=== PATIENT | male | born 1980 | race Caucasian/White ===

== ENCOUNTER 2019-10-12 20:13 | Observation (INO) | payer SELFPAY ==
[~2019-10-12] VITALS: Ht 193 cm; Wt 113.2 kg
[2019-10-12] MEDS ORDERED: NS IV 1000 ML 1,000 ML IV SCH ×2 (20:42→21:39)
[2019-10-12 20:57] LABS: BASOPHILS # (AUTO) 0.1 10^3/uL (0.0-0.1); BASOPHILS % (AUTO) 1 % (0-10); EOSINOPHILS # (AUTO) 0.3 10^3/uL (0.0-0.3); EOSINOPHILS % (AUTO) 3 % (0-10); HEMATOCRIT 43 % (40-54); HEMOGLOBIN 15.6 G/DL (13.3-17.7); LYMPHOCYTES # (AUTO) 2.2 X 10^3 (1.0-4.0); LYMPHOCYTES % (AUTO) 26 % (12-44); MEAN CORPUSCULAR HEMOGLOBIN 31 PG (25-34); MEAN CORPUSCULAR HGB CONC 36 G/DL (32-36); MEAN CORPUSCULAR VOLUME 86 FL (80-99); MONOCYTES # (AUTO) 0.5 X 10^3 (0.0-1.0); MONOCYTES % (AUTO) 6 % (0-12); NEUTROPHILS # (AUTO) 5.3 X 10^3 (1.8-7.8); NEUTROPHILS % (AUTO) 64 % (42-75); PLATELET COUNT 190 10^3/uL (130-400); WHITE BLOOD COUNT 8.3 10^3/uL (4.3-11.0)
--- NOTE | 2019-10-12 20:57 | NUR ---
RT TO BEDSIDE FOR ABG
--- NOTE | 2019-10-12 21:01 | ED General ---
General Chief Complaint: Glucose Problems Stated Complaint: HIGH BLOOD SUGAR, DIZZINESS Source of Information: Patient History of Present Illness Date Seen by Provider: Oct 12, 2019 Time Seen by Provider: 20:38 Initial Comments PT ARRIVES VIA POV C/O ELEVATED BLOOD SUGAR--> 500 JUST PRIOR TO ARRIVAL PT STATES HE IS "NOT DIABETIC" PT STATES IN APRIL OF THIS YEAR, HE WAS HOSPITALIZED IN [place], AND HAD PANCREATITIS AND HAD ELEVATED BLOOD SUGAR AND ELEVATED BLOOD PRESSURE. PT STATES THAT "EVERYTHING WENT BACK TO NORMAL" ,BUT DID NOT FOLLOW UP WITH ANYONE AFTER THE HOSPITALIZATION, EXCEPT THAT HE WENT TO AN URGENT CARE SOMETIME AFTER HE WAS DISMISSED FROM THE HOSPITAL AND HIS BLOOD SUGARS WERE IN THE 400'S AND THEY GAVE HIM SOME FLUIDS AND SENT HIM HOME PT STATES HE HAS NOT CHECKED HIS BLOOD SUGAR FOR ABOUT 3 MONTHS STATES HE ATE AT [facility] THIS EVENING, ABOUT 2 HOURS AGO STATES JUST PRIOR TO ARRIVAL, HE STARTED GETTING SOME BLURRY VISION AND FELT A LITTLE DIZZY, SO HE CHECKED HIS BLOOD SUGAR AND IT WAS > 500, SO HE CAME STRAIGHT HERE NO NAUSEA/VOMITING/DIARRHEA OR ABDOMINAL PAIN NO FEVER/SWEATS/CHILLS HAD SLIGHT HEADACHE ON THE WAY HERE, BUT NOT NOW STATES HAS HAD URINARY FREQUENCY THE LAST 2-3 DAYS. PT HAD SOME ALCOHOL YESTERDAY AND "1 BEER" TODAY WANTING SOMETHING FOR HIS ANXIETY SOON HE ARRIVES IN ER PT JUST MOVED HERE LESS THAN A WEEK AGO FROM [place] Allergies and Home Medications Allergies Coded Allergies: No Known Drug Allergies (Unverified , 10/12/19) Patient Home Medication List Home Medication List Reviewed: Yes Review of Systems Review of Systems Constitutional: see HPI; No chills, No diaphoresis; dizziness; No fever, No malaise, No weakness EENTM: see HPI, blurred vision Respiratory: no symptoms reported Cardiovascular: no symptoms reported Gastrointestinal: no symptoms reported; No abdominal pain, No diarrhea, No loss of appetite, No nausea, No vomiting Genitourinary: see HPI; No dysuria; frequency Musculoskeletal: no symptoms reported Skin: no symptoms reported Psychiatric/Neurological: See HPI; Denies Numbness, Denies Paresthesia Hematologic/Lymphatic: No Symptoms Reported Immunological/Allergic: no symptoms reported Past Ofktuvn-Icckqs-Aqzsqx Hx Past Med/Social Hx: Reviewed and Corrections made Patient Social History Alcohol Use: Occasionally Uses Recreational Drug Use: No Smoking Status: Current Everyday Smoker Type Used: Cigarettes Past Medical History Surgeries: No Respiratory: No Cardiac: Yes (NO MEDICATIONS) Hypertension Neurological: No Genitourinary: No Gastrointestinal: Yes Pancreatitis Musculoskeletal: No Endocrine: Yes (ELEVATED BLOOD SUGAR) HEENT: No Cancer: No Psychosocial: Yes Anxiety Family Medical History SOCIAL HISTORY: -STATES "OCCASIONAL" ETOH, NOW, BUT HISTORY OF VERY HEAVY USE -DENIES DRUG USE -SMOKES 1-3 PACKS/DAY Physical Exam Vital Signs Vital Signs - First Documented 10/12/19 20:33 Temp 36.8 Pulse 121 Resp 20 B/P (MAP) 171/109 (129) Pulse Ox 98 O2 Delivery Room Air Capillary Refill : Height, Weight, BMI Height: '" Weight: lbs. oz. kg; BMI Method: General Appearance: No Apparent Distress, WD/WN, Anxious (TALKS VERY RAPIDLY), Other (DOES NOT APPEAR TO BE IN ANY DISCOMFORT OR DISTRESS) HEENT: PERRL/EOMI Neck: Normal Inspection Respiratory: Normal Breath Sounds, No Accessory Muscle Use, No Respiratory Distress Cardiovascular: No Edema, No JVD, Normal Peripheral Pulses, Tachycardia (120'S) Gastrointestinal: Normal Bowel Sounds, No Organomegaly, No Pulsatile Mass, Non Tender, Soft Back: Normal Inspection, No CVA Tenderness Extremity: Normal Capillary Refill, Normal Inspection, Normal Range of Motion, Non Tender, No Calf Tenderness, No Pedal Edema Neurologic/Psychiatric: Alert, Oriented x3, No Motor/Sensory Deficits, invasive physician II- XII Norm as Tested Skin: Normal Color, Warm/Dry, Tattoos/Piercings (MULTIPLE TATTOOS) Progress/Results/Core Measures Suspected Sepsis SIRS Temperature: Pulse: Respiratory Rate: Laboratory Tests 10/12/19 20:38: White Blood Count 8.3 Blood Pressure / Mean: Laboratory Tests 10/12/19 20:38: Creatinine 1.59H, Platelet Count 190, Total Bilirubin 0.5 Results/Orders Lab Results Laboratory Tests Test 10/12/19 20:38 10/12/19 21:27 10/12/19 21:51 Range/Units White Blood Count 8.3 4.3-11.0 10^3/uL Red Blood Count 5.04 4.35-5.85 10^6/uL Hemoglobin 15.6 13.3-17.7 G/DL Hematocrit 43 40-54 % Mean Corpuscular Volume 86 80-99 FL Mean Corpuscular Hemoglobin 31 25-34 PG Mean Corpuscular Hemoglobin Concent 36 32-36 G/DL Red Cell Distribution Width 12.7 10.0-14.5 % Platelet Count 190 130-400 10^3/uL Mean Platelet Volume 12.0 H 7.4-10.4 FL Neutrophils (%) (Auto) 64 42-75 % Lymphocytes (%) (Auto) 26 12-44 % Monocytes (%) (Auto) 6 0-12 % Eosinophils (%) (Auto) 3 0-10 % Basophils (%) (Auto) 1 0-10 % Neutrophils # (Auto) 5.3 1.8-7.8 X 10^3 Lymphocytes # (Auto) 2.2 1.0-4.0 X 10^3 Monocytes # (Auto) 0.5 0.0-1.0 X 10^3 Eosinophils # (Auto) 0.3 0.0-0.3 10^3/uL Basophils # (Auto) 0.1 0.0-0.1 10^3/uL Sodium Level 130 L 135-145 MMOL/L Potassium Level 3.9 3.6-5.0 MMOL/L Chloride Level 93 L 98-107 MMOL/L Carbon Dioxide Level 22 21-32 MMOL/L Anion Gap 15 H 5-14 MMOL/L Blood Urea Nitrogen 11 7-18 MG/DL Creatinine 1.59 H 0.60-1.30 MG/DL Estimat Glomerular Filtration Rate 49 BUN/Creatinine Ratio 7 Glucose Level 565 *H 70-105 MG/DL Calcium Level 9.9 8.5-10.1 MG/DL Corrected Calcium 8.5-10.1 MG/DL Magnesium Level 1.7 1.6-2.4 MG/DL Total Bilirubin 0.5 0.1-1.0 MG/DL Aspartate Amino Transf (AST/SGOT) 15 5-34 U/L Alanine Aminotransferase (ALT/SGPT) 36 0-55 U/L Alkaline Phosphatase 92 40-136 U/L Total Protein 8.2 6.4-8.2 GM/DL Albumin 4.8 H 3.2-4.5 GM/DL Amylase Level 16 L 25-125 U/L Lipase 32 8-78 U/L Beta-Hydroxybutyrate (Chem panel) 0.07 0.00-0.27 MMOL/L Serum Alcohol < 10 <10 MG/DL Urine Color YELLOW Urine Clarity CLEAR Urine pH 6.0 5-9 Urine Specific [place] <=1.005 1.016-1.022 Urine Protein NEGATIVE NEGATIVE Urine Glucose (UA) 3+ H NEGATIVE Urine Ketones NEGATIVE NEGATIVE Urine Nitrite NEGATIVE NEGATIVE Urine Bilirubin NEGATIVE NEGATIVE Urine Urobilinogen 0.2 < = 1.0 MG/DL Urine Leukocyte Esterase NEGATIVE NEGATIVE Urine RBC (Auto) NEGATIVE NEGATIVE Urine RBC NONE /HPF Urine WBC NONE /HPF Urine Squamous Epithelial Cells 2-5 /HPF Urine Crystals NONE /LPF Urine Bacteria NEGATIVE /HPF Urine Casts NONE /LPF Urine Mucus NEGATIVE /LPF Urine Culture Indicated NO Urine Opiates Screen NEGATIVE NEGATIVE Urine Oxycodone Screen NEGATIVE NEGATIVE Urine Methadone Screen NEGATIVE NEGATIVE Urine Propoxyphene Screen NEGATIVE NEGATIVE Urine Barbiturates Screen NEGATIVE NEGATIVE Ur Tricyclic Antidepressants Screen NEGATIVE NEGATIVE Urine Phencyclidine Screen NEGATIVE NEGATIVE Urine Amphetamines Screen NEGATIVE NEGATIVE Urine Methamphetamines Screen NEGATIVE NEGATIVE Urine Benzodiazepines Screen NEGATIVE NEGATIVE Urine Cocaine Screen NEGATIVE NEGATIVE Urine Cannabinoids Screen NEGATIVE NEGATIVE Blood Gas Puncture Site RIGHT RADIAL Blood Gas Patient Temperature 37.1 Arterial Blood pH 7.38 7.37-7.43 Arterial Blood Partial Pressure CO2 46 H 35-45 MMHG Arterial Blood Partial Pressure O2 35 *L 79-93 MMHG Arterial Blood HCO3 27 23-27 MMOL/L Arterial Blood Total CO2 28.2 21.0-31.0 MMOL/L Arterial Blood Oxygen Saturation 66 L 94-100 % Arterial Blood Base Excess 2.1 -2.5-2.5 MMOL/L Wayne Test YES-POS Blood Gas Ventilator Setting NO Blood Gas Inspired Oxygen ROOM AIR My Orders Orders - KENYA DAO DO Accucheck Stat ONCE (10/12/19 20:37) Ed Iv/Invasive Line Start (10/12/19 20:37) Alcohol (10/12/19 20:37) Amylase (10/12/19 20:37) Cbc With Automated Diff (10/12/19 20:37) Comprehensive Metabolic Panel (10/12/19 20:37) Drug Screen Stat (Urine) (10/12/19 20:37) Lipase (10/12/19 20:37) Magnesium (10/12/19 20:37) Ua Culture If Indicated (10/12/19 20:37) Ed Iv/Invasive Line Start (10/12/19 20:37) Beta Hydroxybutyrate (10/12/19 20:42) Arterial Blood Gas (10/12/19 20:42) Ed Iv/Invasive Line Start (10/12/19 20:42) Ns Iv 1000 Ml (Sodium Chloride 0.9%) (10/12/19 20:42) Hemoglobin A1c (10/12/19 21:04) Ed Iv/Invasive Line Start (10/12/19 21:39) Ns Iv 1000 Ml (Sodium Chloride 0.9%) (10/12/19 21:39) Insulin (Regular) Human (Novolin R (Per (10/12/19 21:45) Accucheck Stat ONCE (10/12/19 22:35) Hydroxyzine Cap/Tab (Vistaril) (10/12/19 23:00) Medications Given in ED Current Medications Medications Dose Ordered Sig/Shelby Route Start Time Stop Time Status Last Admin Dose Admin Insulin Human Regular 15 unit ONCE ONCE IV 10/12/19 21:45 10/12/19 21:46 DC 10/12/19 21:49 15 UNIT Vital Signs/I&O 10/12/19 10/12/19 20:33 23:18 Temp 36.8 Pulse 121 100 Resp 20 20 B/P (MAP) 171/109 (129) 138/90 Pulse Ox 98 98 O2 Delivery Room Air Room Air Capillary Refill : Point of Care Testing Finger Stick Blood Glucose: 529 Blood Glucose Action Taken: DR DAO AWARE Progress Note : Progress Note ACCUCHECK 529 ON ARRIVAL. GIVEN IV FLUIDS AND INSULIN NO DETERIORATION IN PT'S CONDITION DURING ER STAY Departure Communication (Admissions) [id number]--SPOKE WITH DR. RAI, ACCEPTS PT FOR ADMIT. ORDERS NOTED. Impression Primary Impression: Hyperglycemia Additional Impressions: Newly diagnosed diabetes HTN (hypertension) Dehydration Renal insufficiency Disposition: ADMITTED INPATIENT Condition: Stable Admissions Decision to Admit Reason: Admit from ER (General) Decision to Admit/Date: Oct 12, 2019 Time/Decision to Admit Time: 21:45 Departure-Patient Inst. Referrals: NO,LOCAL PHYSICIAN (PCP/Family) Primary Care Physician KENYA DAO DO Oct 12, 2019 21:01
[2019-10-12 21:16] LABS: ALANINE AMINOTRANSFERASE 36 U/L (0-55); ALBUMIN 4.8 GM/DL (3.2-4.5); ALKALINE PHOSPHATASE 92 U/L (40-136); AMYLASE 16 U/L (25-125); BILIRUBIN,TOTAL 0.5 MG/DL (0.1-1.0); BUN/CREATININE RATIO 7; CALCIUM 9.9 MG/DL (8.5-10.1); CARBON DIOXIDE 22 MMOL/L (21-32); CHLORIDE 93 MMOL/L (98-107); CREATININE SERUM 1.59 MG/DL (0.60-1.30); GFR ESTIMATED 49; LIPASE 32 U/L (8-78); MAGNESIUM 1.7 MG/DL (1.6-2.4); POTASSIUM 3.9 MMOL/L (3.6-5.0); SODIUM 130 MMOL/L (135-145); TOTAL PROTEIN 8.2 GM/DL (6.4-8.2)
[2019-10-12 21:21] LABS: GLUCOSE 565 MG/DL (70-105)
[2019-10-12] MEDS ORDERED: inSUlin (REGULAR) HUMAN 1 UNIT/0.01 ML (CHARGE PER UNIT) IV ONE (21:45)
[2019-10-12 21:48] LABS: AMPHETAMINE SCREEN, URINE NEGATIVE (NEGATIVE); BARBITURATE SCREEN URINE NEGATIVE (NEGATIVE); BENZODIAZEPINES SCREEN URINE NEGATIVE (NEGATIVE); CANNABINOID SCREEN, URINE NEGATIVE (NEGATIVE); COCAINE SCREEN URINE NEGATIVE (NEGATIVE); METHADONE STAT NEGATIVE (NEGATIVE); METHAMPHETAMINE SCREEN URINE S NEGATIVE (NEGATIVE); OPIATE SCREEN URINE NEGATIVE (NEGATIVE); OXYCODONE STAT NEGATIVE (NEGATIVE); PROPOXYPHENE STAT NEGATIVE (NEGATIVE); TRICYCLIC ANTIDEPRESSANTS SCRE NEGATIVE (NEGATIVE)
--- NOTE | 2019-10-12 21:52 | NUR ---
ABG REDRAWN BY RT AT THIS TIME.
[2019-10-12 21:53] LABS: BILIRUBIN,URINE NEGATIVE (NEGATIVE); CLARITY,URINE CLEAR; COLOR,URINE YELLOW; GLUCOSE, URINE (UA) 3+ (NEGATIVE); KETONES,URINE NEGATIVE (NEGATIVE); LEUKOCYTE ESTERASE ,URINE NEGATIVE (NEGATIVE); NITRITE,URINE NEGATIVE (NEGATIVE); PROTEIN,URINE NEGATIVE (NEGATIVE)
[2019-10-12 21:55] LABS: BACTERIA,URINE NEGATIVE /HPF
[2019-10-12 22:00] LABS: ABG BASE EXCESS 2.1 MMOL/L (-2.5-2.5); ABG OXYGEN SATURATION 66 % (94-100); ABG PCO2 46 MMHG (35-45); ABG PH 7.38 (7.37-7.43); ABG TCO2 28.2 MMOL/L (21.0-31.0)
[2019-10-12 22:04] LABS: ABG PO2 35 MMHG (79-93)
[2019-10-12 22:05] LABS: ALLENS TEST YES-POS; INSPIRED O2 ROOM AIR; PATIENT TEMP 37.1; VENTILATOR NO
[2019-10-12] MEDS ORDERED: hydrOXYzine (VISTARIL/ATARAX) 25 MG capsule/tablet PO ONE (23:00)
--- NOTE | 2019-10-12 23:00 | NUR ---
KENDRA EASLEY admitted to room 423-1, with an admitting diagnosis of hyperglycemia, on 10/12/19 from [facility] ED via wheelchair, accompanied by staff.KENDRA EASLEY introduced to surroundings, call light, bed controls, phone, TV, temperature control, lights, meal times, smoking policy, visitor policy, side rail policy, bathrooms and showers. Patient Rights given to patient in the handbook. KENDRA EASLEY verbalizes understanding that [facility] is not responsible for the loss or damage to any personal effects or valuables that are kept in the patients posession during their hospitalization.
--- NOTE | 2019-10-12 23:18 | NUR ---
PT TRANSFERED FROM ED TO 4TH PER W/C W/O INCIDENT. NO C/O VOICED.
[2019-10-12 23:45] VITALS: BP 154/97
[2019-10-13] VITALS: BP 154/97
[2019-10-13] MEDS ORDERED: ONDANSETRON 4 MG/2 ML (SDV) Z0FRAN IV PRN (00:15)
[2019-10-13] MEDS ORDERED: ACETAMINOPHEN 500 MG TAB (TYLENOL) PO PRN (00:15)
[2019-10-13] MEDS: NS IV 1000 ML 1,000 ML IV SCH ×2 (00:24→06:20)
[2019-10-13 04:00] VITALS: BP 134/69
[2019-10-13] MEDS: inSUlin ASPART (NovoLOG) 1 UNIT/0.01 ML (CHARGE PER UNIT) SC SCH ×2 (06:19→12:01)
[2019-10-13 07:22] LABS: BASOPHILS % (AUTO) 0 % (0-10); EOSINOPHILS # (AUTO) 0.3 10^3/uL (0.0-0.3); EOSINOPHILS % (AUTO) 4 % (0-10); HEMATOCRIT 39 % (40-54); HEMOGLOBIN 13.8 G/DL (13.3-17.7); LYMPHOCYTES # (AUTO) 1.7 X 10^3 (1.0-4.0); LYMPHOCYTES % (AUTO) 25 % (12-44); MEAN CORPUSCULAR HEMOGLOBIN 31 PG (25-34); MEAN CORPUSCULAR HGB CONC 35 G/DL (32-36); MEAN CORPUSCULAR VOLUME 87 FL (80-99); MEAN PLATELET VOLUME 11.9 FL (7.4-10.4); MONOCYTES # (AUTO) 0.4 X 10^3 (0.0-1.0); MONOCYTES % (AUTO) 6 % (0-12); NEUTROPHILS # (AUTO) 4.4 X 10^3 (1.8-7.8); NEUTROPHILS % (AUTO) 65 % (42-75); PLATELET COUNT 175 10^3/uL (130-400); WHITE BLOOD COUNT 6.8 10^3/uL (4.3-11.0)
[2019-10-13 07:42] LABS: ALANINE AMINOTRANSFERASE 31 U/L (0-55); ALBUMIN 3.8 GM/DL (3.2-4.5); ALKALINE PHOSPHATASE 72 U/L (40-136); BILIRUBIN,TOTAL 0.5 MG/DL (0.1-1.0); BUN/CREATININE RATIO 9; CALCIUM 8.6 MG/DL (8.5-10.1); CARBON DIOXIDE 22 MMOL/L (21-32); CHLORIDE 102 MMOL/L (98-107); CREATININE SERUM 1.13 MG/DL (0.60-1.30); GFR ESTIMATED > 60; GLUCOSE 311 MG/DL (70-105); POTASSIUM 4.2 MMOL/L (3.6-5.0); SODIUM 135 MMOL/L (135-145); TOTAL PROTEIN 6.4 GM/DL (6.4-8.2)
[2019-10-13 08:00] VITALS: BP 84/54
[2019-10-13] MEDS ORDERED: metFORMIN 500 MG (GLUCOPHAGE) TAB PO ONE (09:00)
[2019-10-13] MEDS ORDERED: METF-397 PO (11:20)
--- NOTE | 2019-10-13 12:00 | NUR ---
THIS NURSE ATTEMPTED TO EDUCATION PATIENT ON INSULIN INJECTIONS AND DIABETES, PATIENT STATES HE WILL NOT BE DOING INJECTIONS AT HOME, DR RAI NOTIFIED. INFORMATION ON TYPE 2 DIABETES, DIET CONTROL AND HYPERGLYCEMIA GIVEN TO PATIENT, PATIENT NOT VERY INTERESTED IN LEARNING.
[2019-10-13 13:23] VITALS: BP 84/54
--- NOTE | 2019-10-13 18:18 | Discharge Summary ---
Discharge Summary Hospital Course Was the Problem List Reviewed?: Yes Problems/Dx: (1) T2DM (type 2 diabetes mellitus) Status: Acute Qualifiers: Qualified Codes: E11.65 - Type 2 diabetes mellitus with hyperglycemia (2) RUBEN (acute kidney injury) Status: Acute (3) Obesity Status: Chronic Qualifiers: Qualified Codes: E66.09 - Other obesity due to excess calories; Z68.30 - Body mass index (bmi) 30.0-30.9, adult Hospital Course Date of Admission: Oct 12, 2019 at 21:45 Admission Diagnosis : T2DM with hyperglycemia Family Physician/Provider: Jie,Local Physician Date of Discharge: 10/13/19 Discharge Diagnosis: T2DM with hyperglycemia Hospital Course: Ernst De Santiago is a 39 year old male who presented with hyperglycemia and was admitted with T2DM with hyperglycemia. He had previously been diagnosed with diabetes in [place]. He says that he did not take medications at that time and he was able to control his blood sugars with diet and exercise. He was very resistant to starting medications. He did agree to start Metformin. We discussed that his diabetes may be severe enough that he could require insulin therapy. He recently moved to [place]. He is unemployed. He does not have insurance. He does not have a doctor. He was scheduled for an appointment at [facility]. He was given a prescription for Metformin. His Hemoglobin A1C was pending at the time of discharge. His course was complicated by RUBEN which resolved with IV fluids. He was discharged home in stable condition. Labs and Pending Lab Test: Laboratory Tests 10/12/19 20:38: White Blood Count 8.3, Red Blood Count 5.04, Hemoglobin 15.6, Hematocrit 43, Mean Corpuscular Volume 86, Mean Corpuscular Hemoglobin 31, Mean Corpuscular Hemoglobin Concent 36, Red Cell Distribution Width 12.7, Platelet Count 190, Mean Platelet Volume 12.0H, Neutrophils (%) (Auto) 64, Lymphocytes (%) (Auto) 26, Monocytes (%) (Auto) 6, Eosinophils (%) (Auto) 3, Basophils (%) (Auto) 1, Neutrophils # (Auto) 5.3, Lymphocytes # (Auto) 2.2, Monocytes # (Auto) 0.5, Eosinophils # (Auto) 0.3, Basophils # (Auto) 0.1, Sodium Level 130L, Potassium Level 3.9, Chloride Level 93L, Carbon Dioxide Level 22, Anion Gap 15H, Blood Urea Nitrogen 11, Creatinine 1.59H, Estimat Glomerular Filtration Rate 49, BUN/Creatinine Ratio 7, Glucose Level 565*H, Mean Blood Glucose [Pending], Hemoglobin A1c [Pending], Calcium Level 9.9, Corrected Calcium , Magnesium Level 1.7, Total Bilirubin 0.5, Aspartate Amino Transf (AST/SGOT) 15, Alanine Aminotransferase (ALT/SGPT) 36, Alkaline Phosphatase 92, Total Protein 8.2, Albumin 4.8H, Amylase Level 16L, Lipase 32, Beta-Hydroxybutyrate (Chem panel) 0.07, Serum Alcohol < 10 10/12/19 21:27: Urine Color YELLOW, Urine Clarity CLEAR, Urine pH 6.0, Urine Specific [place] <=1.005, Urine Protein NEGATIVE, Urine Glucose (UA) 3+H, Urine Ketones NEGATIVE, Urine Nitrite NEGATIVE, Urine Bilirubin NEGATIVE, Urine Urobilinogen 0.2, Urine Leukocyte Esterase NEGATIVE, Urine RBC (Auto) NEGATIVE, Urine RBC NONE, Urine WBC NONE, Urine Squamous Epithelial Cells 2-5, Urine Crystals NONE, Urine Bacteria NEGATIVE, Urine Casts NONE, Urine Mucus NEGATIVE, Urine Culture Indicated NO, Urine Opiates Screen NEGATIVE, Urine Oxycodone Screen NEGATIVE, Urine Methadone Screen NEGATIVE, Urine Propoxyphene Screen NEGATIVE, Urine Barbiturates Screen NEGATIVE, Ur Tricyclic Antidepressants Screen NEGATIVE, Urine Phencyclidine Screen NEGATIVE, Urine Amphetamines Screen NEGATIVE, Urine Methamphetamines Screen NEGATIVE, Urine Benzodiazepines Screen NEGATIVE, Urine Cocaine Screen NEGATIVE, Urine Cannabinoids Screen NEGATIVE 10/12/19 21:51: Blood Gas Puncture Site RIGHT RADIAL, Blood Gas Patient Temperature 37.1, Arterial Blood pH 7.38, Arterial Blood Partial Pressure CO2 46H, Arterial Blood Partial Pressure O2 35*L, Arterial Blood HCO3 27, Arterial Blood Total CO2 28.2, Arterial Blood Oxygen Saturation 66L, Arterial Blood Base Excess 2.1, Wayne Test YES-POS, Blood Gas Ventilator Setting NO, Blood Gas Inspired Oxygen ROOM AIR 10/13/19 07:02: White Blood Count 6.8, Red Blood Count 4.48, Hemoglobin 13.8, Hematocrit 39L, Mean Corpuscular Volume 87, Mean Corpuscular Hemoglobin 31, Mean Corpuscular Hemoglobin Concent 35, Red Cell Distribution Width 12.9, Platelet Count 175, Mean Platelet Volume 11.9H, Neutrophils (%) (Auto) 65, Lymphocytes (%) (Auto) 25, Monocytes (%) (Auto) 6, Eosinophils (%) (Auto) 4, Basophils (%) (Auto) 0, Neutrophils # (Auto) 4.4, Lymphocytes # (Auto) 1.7, Monocytes # (Auto) 0.4, Eosinophils # (Auto) 0.3, Basophils # (Auto) 0.0, Sodium Level 135, Potassium Level 4.2, Chloride Level 102, Carbon Dioxide Level 22, Anion Gap 11, Blood Urea Nitrogen 10, Creatinine 1.13, Estimat Glomerular Filtration Rate > 60, BUN/Creatinine Ratio 9, Glucose Level 311H, Calcium Level 8.6, Corrected Calcium 8.8, Total Bilirubin 0.5, Aspartate Amino Transf (AST/SGOT) 23, Alanine Aminotransferase (ALT/SGPT) 31, Alkaline Phosphatase 72, Total Protein 6.4, Alb umin 3.8 Home Meds Active Metformin HCl 500 Mg Tablet 500 Mg PO BID 30 Days TAKE 500 MG TWICE DAILY FOR ONE WEEK, THEN INCREASE TO 1000 MG TWICE DAILY. Assessment/Pt Instructions Take medications as prescribed. Begin taking Metformin for diabetes. Establish care with a primary care physician. An appointment was scheduled at [facility]. Discharge Planning: <30 minutes discharge planning Discharge Instructions Discharge Diet: ADA Diet Activity as Tolerated: Yes Discharge Physical Examination Vital Signs Vital Signs Date Time Temp Pulse Resp B/P (MAP) Pulse Ox O2 Delivery O2 Flow Rate FiO2 10/13/19 13:23 36.0 63 18 84/54 95 Room Air Allergies: Coded Allergies: No Known Drug Allergies (Unverified , 10/12/19) Copy Copies To 1: [facility] [place] Summary Date of Admission Oct 12, 2019 at 21:45 Date of Discharge Oct 13, 2019 at 13:29 Discharge Date: Oct 13, 2019 Discharge Time: 13:29 Admission Diagnosis T2DM with hyperglycemia Discharge Diagnosis (1) T2DM (type 2 diabetes mellitus) Status: Acute Qualifiers: Qualified Codes: E11.65 - Type 2 diabetes mellitus with hyperglycemia (2) RUBEN (acute kidney injury) Status: Acute (3) Obesity Status: Chronic Qualifiers: Qualified Codes: E66.09 - Other obesity due to excess calories; Z68.30 - Body mass index (bmi) 30.0-30.9, adult Clinical Quality Measures DVT/VTE Risk/Contraindication: Risk Factor Score Per Nursin RFS Level Per Nursing on Admit: 4+=Very High PRIYA RAI MD Oct 13, 2019 18:18
== END 2019-10-13 11:17 | disposition home or self-care (01) ==
LOC: ER 20:16 → UNDOADMOB 21:45 → 4TH 21:45 → UNDODISOB 10-13 13:29
PROVIDERS: ADMIT Internal Medicine; ATTEND Internal Medicine
DX: E11.65 Type 2 diabetes mellitus with hyperglycemia (principal); N17.9 Acute kidney failure, unspecified; I10 Essential (primary) hypertension; F41.9 Anxiety disorder, unspecified; F17.210 Nicotine dependence, cigarettes, uncomplicated; E66.09 Other obesity due to excess calories; Z68.30 Body mass index [BMI] 30.0-30.9, adult; Z79.84 Long term (current) use of oral hypoglycemic drugs; Z79.899 Other long term (current) drug therapy
CPT/HCPCS: 36600; 80053 ×2; 80306; 81000; 82010; 82150; 82805; 82962 ×2; 83036; 83690; 83735; 85025 ×2; 96361; 96374; 99284; G0378; G0480; 36415; 80320

== ENCOUNTER 2020-01-15 12:46 | Emergency (ER) | payer SELFPAY ==
[~2020-01-15] VITALS: Ht 186 cm; Wt 193.0 kg
[~2020-01-15 12:46] MED LIST: METF-397 PO
[2020-01-15] MEDS ORDERED: NS IV 1000 ML 1,000 ML IV SCH (13:00)
[2020-01-15] MEDS ORDERED: inSUlin (REGULAR) HUMAN 1 UNIT/0.01 ML (CHARGE PER UNIT) ONE (13:13)
[2020-01-15 13:14] LABS: BILIRUBIN,URINE NEGATIVE (NEGATIVE); CLARITY,URINE CLEAR; COLOR,URINE YELLOW; GLUCOSE, URINE (UA) 3+ (NEGATIVE); KETONES,URINE NEGATIVE (NEGATIVE); LEUKOCYTE ESTERASE ,URINE NEGATIVE (NEGATIVE); NITRITE,URINE NEGATIVE (NEGATIVE); PROTEIN,URINE NEGATIVE (NEGATIVE)
[2020-01-15] MEDS ORDERED: inSUlin (REGULAR) HUMAN 1 UNIT/0.01 ML (CHARGE PER UNIT) SC SCH (13:15)
[2020-01-15 13:22] LABS: BACTERIA,URINE NEGATIVE /HPF; SQUAMOUS EPITHELIAL CELL,UR RARE /HPF
[2020-01-15 13:28] LABS: BASOPHILS # (AUTO) 0.1 10^3/uL (0.0-0.1); BASOPHILS % (AUTO) 1 % (0-10); EOSINOPHILS # (AUTO) 0.2 10^3/uL (0.0-0.3); EOSINOPHILS % (AUTO) 3 % (0-10); HEMATOCRIT 46 % (40-54); LYMPHOCYTES # (AUTO) 1.3 10^3/uL (1.0-4.0); LYMPHOCYTES % (AUTO) 20 % (12-44); MEAN CORPUSCULAR HEMOGLOBIN 32 pg (25-34); MEAN CORPUSCULAR HGB CONC 35 g/dL (32-36); MEAN CORPUSCULAR VOLUME 90 fL (80-99); MEAN PLATELET VOLUME 11.4 fL (9.0-12.2); MONOCYTES # (AUTO) 0.4 10^3/uL (0.0-1.0); MONOCYTES % (AUTO) 6 % (0-12); NEUTROPHILS # (AUTO) 4.7 10^3/uL (1.8-7.8); NEUTROPHILS % (AUTO) 69 % (42-75); PLATELET COUNT 183 10^3/uL (130-400); WHITE BLOOD COUNT 6.8 10^3/uL (4.3-11.0)
--- NOTE | 2020-01-15 13:31 | ED General ---
General Chief Complaint: Glucose Problems Stated Complaint: HIGH BLOOD SUGAR Nursing Triage Note: PT STATES HAVING ISSUES WITH BLOOD SUGAR GOING UP AND DOWN SINCE YESTERDAY. HIGHEST BEING 430. 339 AT TRIAGE. Nursing Sepsis Screen: No Definite Risk Source of Information: Patient Exam Limitations: No Limitations History of Present Illness Date Seen by Provider: Jan 15, 2020 Time Seen by Provider: 15:15 Initial Comments To ER with reports of high blood sugar since yesterday over 400. He has known diabetic as of 3 months ago. He has increased his activity, reduced his food intake and his sugars have been doing quite well on Metformin 1000 mg twice a day. He was having some side effects including diarrhea and abdominal cramping and was recently switched to 500 mg twice a day about 3 weeks ago. He has an appointment with his primary healthcare provider on 01/23/2020.He feels well with no sign of illness. Timing/Duration: 1-2 Days Severity: Moderate Associated Systoms: No Cough, No Headaches, No Nausea/Vomiting, No Weakness Allergies and Home Medications Allergies Coded Allergies: No Known Drug Allergies (Unverified , 10/12/19) Home Medications Insulin Aspart 100 Unit/1 Ml Susp, 10 UNIT SQ TID PRN for HYPERGLYCEMIA Prescribed by: FILI BILLS on 01/15/20 1423 Metformin HCl 500 Mg Tablet, 500 MG PO BID TAKE 500 MG TWICE DAILY FOR ONE WEEK, THEN INCREASE TO 1000 MG TWICE DAILY. Prescribed by: PRIYA RAI on 10/13/19 1120 Patient Home Medication List Home Medication List Reviewed: Yes Review of Systems Review of Systems Constitutional: see HPI EENTM: see HPI Respiratory: no symptoms reported Cardiovascular: no symptoms reported Genitourinary: no symptoms reported Musculoskeletal: no symptoms reported Skin: no symptoms reported Psychiatric/Neurological: No Symptoms Reported Hematologic/Lymphatic: No Symptoms Reported Immunological/Allergic: no symptoms reported Past Fbsexwd-Bgdflx-Oewebw Hx Patient Social History Alcohol Beverage of Choice: Beer Type Used: Cigarettes 2nd Hand Smoke Exposure: Yes Recent Foreign Travel: No Contact w/Someone Who Travel: No Recent Infectious Disease Expo: No Recent Hopitalizations: No Past Medical History Surgeries: No Respiratory: No Cardiac: Yes (NO MEDICATIONS) Hypertension Neurological: No Genitourinary: No Gastrointestinal: Yes Pancreatitis Musculoskeletal: No Endocrine: Yes (ELEVATED BLOOD SUGAR) HEENT: No Cancer: No Psychosocial: Yes Anxiety Integumentary: No Family Medical History SOCIAL HISTORY: -STATES "OCCASIONAL" ETOH, NOW, BUT HISTORY OF VERY HEAVY USE -DENIES DRUG USE -SMOKES 1-3 PACKS/DAY Physical Exam Vital Signs Vital Signs - First Documented 01/15/20 13:01 Temp 36.0 Pulse 91 Resp 20 B/P (MAP) 144/123 (130) Pulse Ox 97 O2 Delivery Room Air Capillary Refill : Less Than 3 Seconds Height, Weight, BMI Height: '" Weight: lbs. oz. kg; 32.00 BMI Method: General Appearance: No Apparent Distress, WD/WN Eyes: Bilateral Eye Normal Inspection, Bilateral Eye PERRL, Bilateral Eye EOMI Neck: Full Range of Motion, Normal Inspection Respiratory: No Accessory Muscle Use, No Respiratory Distress Cardiovascular: Regular Rate, Rhythm, Normal Peripheral Pulses Gastrointestinal: Normal Bowel Sounds, Non Tender, Soft Extremity: Normal Capillary Refill, Normal Inspection Neurologic/Psychiatric: Alert, Oriented x3 Skin: Normal Color, Warm/Dry Progress/Results/Core Measures Suspected Sepsis Recent Fever Within 48 Hours: No Infection Criteria Present: None New/Unexplained Altered Menta: No Sepsis Screen: No Definite Risk SIRS Temperature: Pulse: 91 Respiratory Rate: 20 Laboratory Tests 01/15/20 13:15: White Blood Count 6.8 Blood Pressure 144 /123 Mean: 130 Laboratory Tests 01/15/20 13:15: Creatinine 1.19, Platelet Count 183, Total Bilirubin 0.6 Results/Orders Lab Results Laboratory Tests Test 01/15/20 13:02 01/15/20 13:05 01/15/20 13:15 Range/Units Glucometer 339 H 70-110 MG/DL Urine Color YELLOW Urine Clarity CLEAR Urine pH 6.0 5-9 Urine Specific [place] <=1.005 1.016-1.022 Urine Protein NEGATIVE NEGATIVE Urine Glucose (UA) 3+ H NEGATIVE Urine Ketones NEGATIVE NEGATIVE Urine Nitrite NEGATIVE NEGATIVE Urine Bilirubin NEGATIVE NEGATIVE Urine Urobilinogen 0.2 < = 1.0 MG/DL Urine Leukocyte Esterase NEGATIVE NEGATIVE Urine RBC (Auto) NEGATIVE NEGATIVE Urine RBC NONE /HPF Urine WBC NONE /HPF Urine Squamous Epithelial Cells RARE /HPF Urine Crystals NONE /LPF Urine Bacteria NEGATIVE /HPF Urine Casts NONE /LPF Urine Mucus NEGATIVE /LPF Urine Culture Indicated NO White Blood Count 6.8 4.3-11.0 10^3/uL Red Blood Count 5.07 4.30-5.52 10^6/uL Hemoglobin 16.0 13.3-17.7 g/dL Hematocrit 46 40-54 % Mean Corpuscular Volume 90 80-99 fL Mean Corpuscular Hemoglobin 32 25-34 pg Mean Corpuscular Hemoglobin Concent 35 32-36 g/dL Red Cell Distribution Width 12.0 10.0-14.5 % Platelet Count 183 130-400 10^3/uL Mean Platelet Volume 11.4 9.0-12.2 fL Immature Granulocyte % (Auto) 1 % Neutrophils (%) (Auto) 69 42-75 % Lymphocytes (%) (Auto) 20 12-44 % Monocytes (%) (Auto) 6 0-12 % Eosinophils (%) (Auto) 3 0-10 % Basophils (%) (Auto) 1 0-10 % Neutrophils # (Auto) 4.7 1.8-7.8 10^3/uL Lymphocytes # (Auto) 1.3 1.0-4.0 10^3/uL Monocytes # (Auto) 0.4 0.0-1.0 10^3/uL Eosinophils # (Auto) 0.2 0.0-0.3 10^3/uL Basophils # (Auto) 0.1 0.0-0.1 10^3/uL Immature Granulocyte # (Auto) 0.1 0.0-0.1 10^3/uL Sodium Level 128 L 135-145 MMOL/L Potassium Level 4.1 3.6-5.0 MMOL/L Chloride Level 92 L 98-107 MMOL/L Carbon Dioxide Level 20 L 21-32 MMOL/L Anion Gap 16 H 5-14 MMOL/L Blood Urea Nitrogen 11 7-18 MG/DL Creatinine 1.19 0.60-1.30 MG/DL Estimat Glomerular Filtration Rate > 60 BUN/Creatinine Ratio 9 Glucose Level 348 H 70-105 MG/DL Calcium Level 9.1 8.5-10.1 MG/DL Corrected Calcium 8.5-10.1 MG/DL Total Bilirubin 0.6 0.1-1.0 MG/DL Aspartate Amino Transf (AST/SGOT) 39 H 5-34 U/L Alanine Aminotransferase (ALT/SGPT) 52 0-55 U/L Alkaline Phosphatase 95 40-136 U/L Total Protein 8.3 H 6.4-8.2 GM/DL Albumin 4.7 H 3.2-4.5 GM/DL Beta-Hydroxybutyrate (Chem panel) 0.31 H 0.00-0.27 MMOL/L My Orders Orders - FILI BILLS APRN Ua Culture If Indicated (01/15/20 12:48) Cbc With Automated Diff (01/15/20 12:48) Comprehensive Metabolic Panel (01/15/20 12:48) Beta Hydroxybutyrate (01/15/20 12:48) Ed Iv/Invasive Line Start (01/15/20 12:48) Ns Iv 1000 Ml (Sodium Chloride 0.9%) (01/15/20 13:00) Insulin (Regular) Human (Novolin R (Per (01/15/20 13:15) Insulin (Regular) Human (Novolin R (Per (01/15/20 13:13) Insulin (Regular) Human (Novolin R (Per (01/15/20 14:15) Ns Iv 500 Ml (Sodium Chloride 0.9%) (01/15/20 14:15) Insulin (Regular) Human (Novolin R (Per (01/15/20 14:15) Insulin Determir (Per Unit) (Levemir (Pe (01/15/20 14:30) Vital Signs/I&O 01/15/20 13:01 Temp 36.0 Pulse 91 Resp 20 B/P (MAP) 144/123 (130) Pulse Ox 97 O2 Delivery Room Air Capillary Refill : Less Than 3 Seconds Blood Pressure Mean: 130 Departure Communication (Admissions) He is interested in having a prescription for insulin sent in as he states he would like to avoid emergency room costs and would expect that his blood sugar at some point will be high again. As such we had him draw up 8 units of regular insulin and administer it to himself in the right lower abdominal wall subcutaneously. Questions were answered and he did this with ease. 1420-minimal improvement in hyperglycemia with 8 units of regular insulin subcutaneous. As such we will give an additional 4 units of insulin through his IV and a 500 mL bag of normal saline. We will also give a long-acting insulin 10 units subcutaneously. We will have him draw up and administer that to himself. He would like a prescription for insulin on an as-needed basis for sugars over 250mg/dl until he follows up with Dr. Wolfe on 01/22. Impression Primary Impression: T2DM (type 2 diabetes mellitus) Qualified Codes: E11.69 - Type 2 diabetes mellitus with other specified complication Disposition: HOME, SELF-CARE Condition: Stable Departure-Patient Inst. Referrals: NO,LOCAL PHYSICIAN (PCP/Family) Primary Care Physician Patient Instructions: Hyperglycemia, Adult Add. Discharge Instructions: In the meantime increase your metformin to 1000mg twice a day until 12/ when you can discuss with your primary care provider other treatment options. Use the sliding scale as directed. Blood sugar: 251-300 give 8 units insulin 301-350 give 10 units insulin 351-400give 12 units. You can take this up to every 8 hours. All discharge instructions reviewed with patient and/or family. Voiced understanding. Scripts Syring W-Ndl,Disp,Insul,0.5 ml (Insulin Syringe) 1 Each Disp.syrin EACH MC for Hyperglycemia, #25 Prov: FILI BILLS APRN 01/15/20 Insulin Aspart (Novolog) 100 Unit/1 Ml Susp 10 UNIT SQ TID PRN for HYPERGLYCEMIA, #1 VIAL Prov: FILI BILLS APRN 01/15/20 FILI BILLS APRN Jan 15, 2020 13:31
[2020-01-15 13:43] LABS: ALBUMIN 4.7 GM/DL (3.2-4.5)
[2020-01-15 13:44] LABS: CHLORIDE 92 MMOL/L (98-107); POTASSIUM 4.1 MMOL/L (3.6-5.0); SODIUM 128 MMOL/L (135-145)
[2020-01-15 13:45] LABS: CALCIUM 9.1 MG/DL (8.5-10.1)
[2020-01-15 13:46] LABS: GLUCOSE 348 MG/DL (70-105); TOTAL PROTEIN 8.3 GM/DL (6.4-8.2)
[2020-01-15 13:47] LABS: CARBON DIOXIDE 20 MMOL/L (21-32)
[2020-01-15 13:48] LABS: BILIRUBIN,TOTAL 0.6 MG/DL (0.1-1.0)
[2020-01-15 13:49] LABS: ALKALINE PHOSPHATASE 95 U/L (40-136)
[2020-01-15 13:50] LABS: CREATININE SERUM 1.19 MG/DL (0.60-1.30); GFR ESTIMATED > 60
[2020-01-15 13:51] LABS: BUN/CREATININE RATIO 9
[2020-01-15 13:53] LABS: ALANINE AMINOTRANSFERASE 52 U/L (0-55)
[2020-01-15] MEDS ORDERED: inSUlin (REGULAR) HUMAN 1 UNIT/0.01 ML (CHARGE PER UNIT) IV SCH (14:15)
[2020-01-15] MEDS ORDERED: NS IV 500 ML 500 ML IV SCH (14:15)
[2020-01-15] MEDS ORDERED: inSUlin (REGULAR) HUMAN 1 UNIT/0.01 ML (CHARGE PER UNIT) SC ONE (14:15)
[2020-01-15] MEDS ORDERED: INSU100V16 SQ (14:23)
[2020-01-15] MEDS ORDERED: SYRI-820 MC (14:28)
[2020-01-15 15:24] VITALS: BP 130/84
== END 2020-01-15 15:27 | disposition home or self-care (01) ==
LOC: EDUNIT# 12:46 → ER 12:50
DX: E11.9 Type 2 diabetes mellitus without complications (principal); Z79.84 Long term (current) use of oral hypoglycemic drugs; Z77.22 Contact with and (suspected) exposure to environmental tobacco smoke (acute) (chronic)
CPT/HCPCS: 36415; 80053; 81000; 82010; 82962; 85025

== ENCOUNTER 2020-08-14 04:31 | Inpatient (IN) | payer SELFPAY ==
[~2020-08-14] VITALS: Ht 193 cm; Wt 108.8 kg
[~2020-08-14 04:31] MED LIST changes: +INSU100V16 SQ; +SYRI-820 MC
[2020-08-14] MEDS ORDERED: DICY20TA10 (05:02)
[2020-08-14] MEDS ORDERED: ATOR10TA66 PO ×2 (05:02→12:40)
[2020-08-14] MEDS ORDERED: LISI-729 PO (05:02)
[2020-08-14 05:12] LABS: BASOPHILS # (AUTO) 0.1 10^3/uL (0.0-0.1); BASOPHILS % (AUTO) 1 % (0-10); EOSINOPHILS # (AUTO) 0.1 10^3/uL (0.0-0.3); EOSINOPHILS % (AUTO) 1 % (0-10); HEMATOCRIT 42 % (40-54); HEMOGLOBIN 14.9 g/dL (13.3-17.7); LYMPHOCYTES # (AUTO) 1.8 10^3/uL (1.0-4.0); LYMPHOCYTES % (AUTO) 17 % (12-44); MEAN CORPUSCULAR HEMOGLOBIN 32 pg (25-34); MEAN CORPUSCULAR HGB CONC 35 g/dL (32-36); MEAN CORPUSCULAR VOLUME 90 fL (80-99); MEAN PLATELET VOLUME 11.4 fL (9.0-12.2); MONOCYTES % (AUTO) 9 % (0-12); NEUTROPHILS # (AUTO) 7.8 10^3/uL (1.8-7.8); NEUTROPHILS % (AUTO) 72 % (42-75); PLATELET COUNT 167 10^3/uL (130-400); WHITE BLOOD COUNT 10.8 10^3/uL (4.3-11.0)
[2020-08-14] MEDS ORDERED: KETOROLAC 30 MG/ML VIAL IVP STA (05:21)
[2020-08-14 05:28] LABS: ALBUMIN 4.2 GM/DL (3.2-4.5); CHLORIDE 96 MMOL/L (98-107); POTASSIUM 3.7 MMOL/L (3.6-5.0); SODIUM 132 MMOL/L (135-145)
[2020-08-14 05:29] LABS: AMYLASE 16 U/L (25-125); CALCIUM 9.3 MG/DL (8.5-10.1)
[2020-08-14 05:30] LABS: GLUCOSE 151 MG/DL (70-105)
[2020-08-14] MEDS ORDERED: NS IV 1000 ML 1,000 ML IV SCH (05:30)
[2020-08-14] MEDS ORDERED: ONDANSETRON 4 MG/2 ML (SDV) Z0FRAN IVP ONE (05:30)
[2020-08-14] MEDS ORDERED: HYOSCYAMINE 0.125 MG (LEVSIN) TAB PO ONE (05:30)
[2020-08-14 05:31] LABS: CARBON DIOXIDE 20 MMOL/L (21-32); TOTAL PROTEIN 7.9 GM/DL (6.4-8.2)
[2020-08-14 05:32] LABS: BILIRUBIN,TOTAL 1.5 MG/DL (0.1-1.0)
[2020-08-14 05:34] LABS: ALKALINE PHOSPHATASE 92 U/L (40-136); CREATININE SERUM 1.15 MG/DL (0.60-1.30); GFR ESTIMATED > 60
[2020-08-14 05:35] LABS: BUN/CREATININE RATIO 7
[2020-08-14 05:36] LABS: AMPHETAMINE SCREEN, URINE NEGATIVE (NEGATIVE); BARBITURATE SCREEN URINE NEGATIVE (NEGATIVE); BENZODIAZEPINES SCREEN URINE NEGATIVE (NEGATIVE); CANNABINOID SCREEN, URINE POSITIVE (NEGATIVE); COCAINE SCREEN URINE NEGATIVE (NEGATIVE); METHADONE STAT NEGATIVE (NEGATIVE); METHAMPHETAMINE SCREEN URINE S NEGATIVE (NEGATIVE); OPIATE SCREEN URINE POSITIVE (NEGATIVE); OXYCODONE STAT NEGATIVE (NEGATIVE); PROPOXYPHENE STAT NEGATIVE (NEGATIVE); TRICYCLIC ANTIDEPRESSANTS SCRE NEGATIVE (NEGATIVE)
[2020-08-14 05:37] LABS: ALANINE AMINOTRANSFERASE 119 U/L (0-55); MAGNESIUM 1.5 MG/DL (1.6-2.4)
[2020-08-14 05:38] LABS: CREATINE KINASE 337 U/L (30-200); LIPASE 63 U/L (8-78)
[2020-08-14 05:44] LABS: CREATINE KINASE MB 1.4 NG/ML (<6.6)
[2020-08-14 05:54] LABS: CLARITY,URINE CLEAR; COLOR,URINE ORANGE; GLUCOSE, URINE (UA) NEGATIVE (NEGATIVE); KETONES,URINE TRACE (NEGATIVE); LEUKOCYTE ESTERASE ,URINE NEGATIVE (NEGATIVE); NITRITE,URINE NEGATIVE (NEGATIVE); PROTEIN,URINE 1+ (NEGATIVE)
[2020-08-14] MEDS ORDERED: MAGNESIUM 1 GM/100 ML IVPB 100 ML IV ONE (06:00)
[2020-08-14 06:16] LABS: AMORPHOUS SEDIMENT,UR FEW AMOR URATES /LPF; BACTERIA,URINE TRACE /HPF; BILIRUBIN,URINE 2+ (NEGATIVE); CALCIUM OXALATE CRYSTALS,UR MODERATE /LPF; WBC,URINE 0-2 /HPF
[2020-08-14] MEDS ORDERED: NS 100 ML (IVPB) BAG IV ONE (06:30)
[2020-08-14] MEDS ORDERED: HOLD METFORMIN - RECEIVED CONTRAST 20 ML VIAL IV SCH (06:30)
[2020-08-14] MEDS ORDERED: IOHEXOL 350 MG/ML 100 ML (OMNIPAQUE 350) VIAL IV ONE (06:30)
[2020-08-14] MEDS ORDERED: CATHETER FLUSH 10 ML SYR IV PRN (06:30)
--- NOTE | 2020-08-14 06:48 | ED General ---
General Chief Complaint: General Problems/Pain Stated Complaint: MUSCLES CRAMPING,UPPER ABD PAIN Nursing Triage Note: c/o intermittant hand/feet cramping x3 days, reports worse this am. Nursing Sepsis Screen: No Definite Risk Source of Information: Patient (ANXIOUS, SOMEWHAT DIFFICULT HISTORIAN) History of Present Illness Date Seen by Provider: Aug 14, 2020 Time Seen by Provider: 04:45 Initial Comments PT ARRIVES VIA POV PT WITH MULTIPLE COMPLAINTS C/O RIGHT UPPER QUADRANT PAIN AND CRAMPING, RADIATING ALL ACROSS UPPER ABDOMEN PAIN HAS BEEN ONGOING OFF AND ON FOR THE LAST 3-4 DAYS TOOK 1 HYDROCODONE ON TUESDAY NIGHT AND IT HELPED TOOK DICYCLOMINE ON TUESDAY AND IT HELPED, THEN PAIN / CRAMPING CAME BACK. 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 NO FEVER NO COUGH / CONGESTION NO URI SYMPTOMS NO LOSS OF TASTE/SMELL STATES HE HAS BEEN IN [place] AND JUST GOT BACK ON TUESDAY PCP; EN-KLAUS, ELENA MCDONALD Allergies and Home Medications Allergies Coded Allergies: No Known Drug Allergies (Unverified , 10/12/19) Home Medications Atorvastatin Calcium 10 Mg Tablet, Unknown Dose PO HS, (Reported) Last Action: New Order Insulin Aspart 100 Unit/1 Ml Susp, 10 UNIT SQ TID PRN for HYPERGLYCEMIA Prescribed by: FILI BILLS on 01/15/20 1423 Lisinopril 5 Mg Tablet, Unknown Dose PO DAILY, (Reported) Last Action: New Order Patient Home Medication List Home Medication List Reviewed: Yes Review of Systems Review of Systems Constitutional: no symptoms reported EENTM: no symptoms reported Respiratory: no symptoms reported Cardiovascular: no symptoms reported Gastrointestinal: see HPI; No constipation, No diarrhea; loss of appetite, nausea; No vomiting Genitourinary: no symptoms reported Musculoskeletal: see HPI, muscle cramps Skin: no symptoms reported Psychiatric/Neurological: Anxiety; Denies Headache, Denies Numbness, Denies Paresthesia, Denies Seizure, Denies Tingling, Denies Weakness Hematologic/Lymphatic: No Symptoms Reported Immunological/Allergic: no symptoms reported Past Llqypxn-Lffnzw-Hquhpj Hx Patient Social History Alcohol Use: Past History Number of Drinks Today: AA Alcohol Beverage of Choice: Beer Drug of Choice: cannibus Smoking Status: Current Everyday Smoker Type Used: Cigarettes 2nd Hand Smoke Exposure: Yes Recent Infectious Disease Expo: No Recent Hopitalizations: No Immunizations Up To Date Tetanus Booster (TDap): Unknown Seasonal Allergies Seasonal Allergies: Yes Past Medical History Surgeries: No Respiratory: No Cardiac: Yes High Cholesterol, Hypertension Neurological: No Genitourinary: No Gastrointestinal: Yes Pancreatitis Musculoskeletal: No Endocrine: Yes Diabetes, Insulin dep HEENT: No Cancer: No Psychosocial: Yes Anxiety Integumentary: No Blood Disorders: No Family Medical History SOCIAL HISTORY: -STATES "OCCASIONAL" ETOH, NOW, BUT HISTORY OF VERY HEAVY USE/ABUSE -DENIES DRUG USE, BUT UDS + FOR THC AND OPIATES ON 08/14/20 -SMOKES 1-3 PACKS/DAY Physical Exam Vital Signs Vital Signs - First Documented 08/14/20 04:41 Temp 36.6 Pulse 135 Resp 20 B/P (MAP) 135/89 (104) Pulse Ox 96 O2 Delivery Room Air Capillary Refill : Less Than 3 Seconds Height, Weight, BMI Height: '" Weight: lbs. oz. kg; 29.00 BMI Method: General Appearance: Other (VERY ANXIOUS, TALKING RAPIDLY AND DIFFICULT TO KEEP ON SUBJECT, PT HYPERVENTILATING WITH CARPAL-PEDAL SPASMS AND PT WITH CONSTANT MOVEMENTS. ) Neck: Normal Inspection Respiratory: Normal Breath Sounds, No Accessory Muscle Use, No Respiratory Distress Cardiovascular: Regular Rate, Rhythm, No Murmur Gastrointestinal: Soft, Tenderness (DIFFUSE MID AND UPPER ABDOMINAL TENDERNESS. BUT IS MOST TENDER IN RIGHT UPPER QUADRANT. 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 Norm as Tested, Other (ANXIOUS) Skin: Normal Color, Warm/Dry, Tattoos/Piercings (EXTENSIVE TATTOOS) Progress/Results/Core Measures Suspected Sepsis Recent Fever Within 48 Hours: No Infection Criteria Present: None New/Unexplained Altered Menta: No Sepsis Screen: No Definite Risk SIRS Temperature: Pulse: 135 Respiratory Rate: 20 Laboratory Tests 08/14/20 04:59: White Blood Count 10.8 Blood Pressure 135 /89 Mean: 104 Laboratory Tests 08/14/20 04:59: Creatinine 1.15, Platelet Count 167, Total Bilirubin 1.5H Results/Orders Lab Results Laboratory Tests Test 08/14/20 04:55 08/14/20 04:59 Range/Units Urine Color ORANGE Urine Clarity CLEAR Urine pH 6.0 5-9 Urine Specific [place] 1.020 1.016-1.022 Urine Protein 1+ H NEGATIVE Urine Glucose (UA) NEGATIVE NEGATIVE Urine Ketones TRACE H NEGATIVE Urine Nitrite NEGATIVE NEGATIVE Urine Bilirubin 2+ H NEGATIVE Urine Urobilinogen 1.0 < = 1.0 MG/DL Urine Leukocyte Esterase NEGATIVE NEGATIVE Urine RBC (Auto) NEGATIVE NEGATIVE Urine RBC NONE /HPF Urine WBC 0-2 /HPF Urine Crystals PRESENT H /LPF Urine Calcium Oxalate Crystals MODERATE H /LPF Urine Amorphous Sediment FEW LUIS FERNANDO URATES H /LPF Urine Bacteria TRACE /HPF Urine Casts PRESENT /LPF Urine Hyaline Casts 5-10 H /LPF Urine Mucus NEGATIVE /LPF Urine Culture Indicated NO Urine Opiates Screen POSITIVE H NEGATIVE Urine Oxycodone Screen NEGATIVE NEGATIVE Urine Methadone Screen NEGATIVE NEGATIVE Urine Propoxyphene Screen NEGATIVE NEGATIVE Urine Barbiturates Screen NEGATIVE NEGATIVE Ur Tricyclic Antidepressants Screen NEGATIVE NEGATIVE Urine Phencyclidine Screen NEGATIVE NEGATIVE Urine Amphetamines Screen NEGATIVE NEGATIVE Urine Methamphetamines Screen NEGATIVE NEGATIVE Urine Benzodiazepines Screen NEGATIVE NEGATIVE Urine Cocaine Screen NEGATIVE NEGATIVE Urine Cannabinoids Screen POSITIVE H NEGATIVE White Blood Count 10.8 4.3-11.0 10^3/uL Red Blood Count 4.66 4.30-5.52 10^6/uL Hemoglobin 14.9 13.3-17.7 g/dL Hematocrit 42 40-54 % Mean Corpuscular Volume 90 80-99 fL Mean Corpuscular Hemoglobin 32 25-34 pg Mean Corpuscular Hemoglobin Concent 35 32-36 g/dL Red Cell Distribution Width 12.6 10.0-14.5 % Platelet Count 167 130-400 10^3/uL Mean Platelet Volume 11.4 9.0-12.2 fL Immature Granulocyte % (Auto) 1 % Neutrophils (%) (Auto) 72 42-75 % Lymphocytes (%) (Auto) 17 12-44 % Monocytes (%) (Auto) 9 0-12 % Eosinophils (%) (Auto) 1 0-10 % Basophils (%) (Auto) 1 0-10 % Neutrophils # (Auto) 7.8 1.8-7.8 10^3/uL Lymphocytes # (Auto) 1.8 1.0-4.0 10^3/uL Monocytes # (Auto) 1.0 0.0-1.0 10^3/uL Eosinophils # (Auto) 0.1 0.0-0.3 10^3/uL Basophils # (Auto) 0.1 0.0-0.1 10^3/uL Immature Granulocyte # (Auto) 0.1 0.0-0.1 10^3/uL Sodium Level 132 L 135-145 MMOL/L Potassium Level 3.7 3.6-5.0 MMOL/L Chloride Level 96 L 98-107 MMOL/L Carbon Dioxide Level 20 L 21-32 MMOL/L Anion Gap 16 H 5-14 MMOL/L Blood Urea Nitrogen 8 7-18 MG/DL Creatinine 1.15 0.60-1.30 MG/DL Estimat Glomerular Filtration Rate > 60 BUN/Creatinine Ratio 7 Glucose Level 151 H 70-105 MG/DL Calcium Level 9.3 8.5-10.1 MG/DL Corrected Calcium 9.1 8.5-10.1 MG/DL Magnesium Level 1.5 L 1.6-2.4 MG/DL Total Bilirubin 1.5 H 0.1-1.0 MG/DL Aspartate Amino Transf (AST/SGOT) 83 H 5-34 U/L Alanine Aminotransferase (ALT/SGPT) 119 H 0-55 U/L Alkaline Phosphatase 92 40-136 U/L Total Creatine Kinase 337 H 30-200 U/L Creatine Kinase MB 1.4 <6.6 NG/ML Myoglobin 123.6 H 10.0-92.0 NG/ML Total Protein 7.9 6.4-8.2 GM/DL Albumin 4.2 3.2-4.5 GM/DL Amylase Level 16 L 25-125 U/L Lipase 63 8-78 U/L Serum Alcohol < 10 <10 MG/DL My Orders Orders - KENYA DAO DO Ed Iv/Invasive Line Start (08/14/20 04:45) Alcohol (08/14/20 04:45) Amylase (08/14/20 04:45) Cbc With Automated Diff (08/14/20 04:45) Comprehensive Metabolic Panel (08/14/20 04:45) Creatine Kinase (08/14/20 04:45) Creatine Kinase Mb (08/14/20 04:45) Drug Screen Stat (Urine) (08/14/20 04:45) Lipase (08/14/20 04:45) Magnesium (08/14/20 04:45) Ua Culture If Indicated (08/14/20 04:45) Myoglobin Serum (08/14/20 04:45) Ed Iv/Invasive Line Start (08/14/20 05:21) Ns Iv 1000 Ml (Sodium Chloride 0.9%) (08/14/20 05:30) Ondansetron Injection (Zofran Injectio (08/14/20 05:30) Ketorolac Injection (Toradol Injection) (08/14/20 05:21) Hyoscyamine Sl Tablet (Levsin Sl Tablet) (08/14/20 05:30) Ct Abdomen/Pelvis W (08/14/20 05:51) Magnesium 1 Gm/100 Ml Ivpb (Magnesium Couch (08/14/20 06:00) Iohexol Injection (Omnipaque 350 Mg/Ml 1 (08/14/20 06:30) Received Contrast (Hold Metformin- Contr (08/14/20 06:30) Sodium Chloride Flush (Catheter Flush Sy (08/14/20 06:30) Ns (Ivpb) (Sodium Chloride 0.9% Ivpb Bag (08/14/20 06:30) Fentanyl Inj (Sublimaze Injection) (08/14/20 07:15) Medications Given in ED Current Medications Medications Dose Ordered Sig/Shelby Route Start Time Stop Time Status Last Admin Dose Admin Fentanyl Citrate 50 mcg ONCE ONCE IVP 08/14/20 07:15 08/14/20 07:16 DC 08/14/20 07:23 50 MCG Hyoscyamine Sulfate 0.25 mg ONCE ONCE PO 08/14/20 05:30 08/14/20 05:31 DC 08/14/20 05:27 0.25 MG Iohexol 100 ml ONCE ONCE IV 08/14/20 06:30 08/14/20 06:31 DC 08/14/20 06:27 100 ML Magnesium Sulfate/ Dextrose 100 ml @ 100 mls/hr ONCE ONCE IV 08/14/20 06:00 08/14/20 06:59 DC 08/14/20 06:01 100 MLS/HR Ondansetron HCl 4 mg ONCE ONCE IVP 08/14/20 05:30 08/14/20 05:31 DC 08/14/20 05:27 4 MG Sodium Chloride 10 ml NEEDED PRN IV 08/14/20 06:30 08/14/20 06:27 10 ML Sodium Chloride 100 ml ONCE ONCE IV 08/14/20 06:30 08/14/20 06:31 DC 08/14/20 06:27 80 ML Vital Signs/I&O 08/14/20 04:41 Temp 36.6 Pulse 135 Resp 20 B/P (MAP) 135/89 (104) Pulse Ox 96 O2 Delivery Room Air Capillary Refill : Less Than 3 Seconds Blood Pressure Mean: 104 Progress Note : Progress Note GIVEN IV FLUIDS, ZOFRAN, TORADOL, LEVSIN, PROTONIX, MAGNESIUM WITH MUCH IMPROVEMENT IN SYMPTOMS PT MUCH CALMER AND NO LONGER HAVING CARPAL-PEDAL SPASMS, AND PT ABLE TO LAY FLAT CONTINUED TO C/O RUQ PAIN--FENTANYL GIVEN NO DETERIORATION IN PT'S CONDITION DURING ER STAY PT NOW STATES AT ADMIT, THAT HE HAS HAD PANCREATITIS A FEW TIMES, BUT HAS NOT FOLLOWED UP WITH ANYONE FOR FURTHER EVALUATION. PT STATES HE "USED TO BE A SEVERE ALCOHOLIC" BUT HAD NOT DRANK RECENTLY, UNTIL THIS PAST WEEKEND--DRANK THIS PAST WEEKEND. Diagnostic Imaging Comments CT ABDOMEN/PELVIS--PER [facility] VIA FAX AT 0713 + ACUTE PANCREATITIS, WITH PANCREATIC TAIL MEASURING 1.6 X 2.8 CM-SUSPICIOUS FOR EARLY DEVELOPING PSEUDOCYST. MINIMAL REACTIVE WALL THICKENING OF ADJACENT DUODENAL SWEEP HEPATIC STEATOSIS, NO CHOLEDOCHOLITHIASIS. DIVERTICULOSIS WITHOUT ACUTE DIVERTICULITIS Reviewed: Reviewed by Me Departure Communication (Admissions) 720--SPOKE WITH DR. MANJARREZ, SENIOR COMMUNICATIONS SPECIALIST FOR [facility] [place] FOR ADMIT 722--SPOKE WITH DR. SCHMIDT, SURGICAL CONSULT. WILL KEEP NPO AND OBTAIN ULTRASOUND THIS AM Impression Primary Impression: Pancreatitis Additional Impressions: Elevated liver enzymes IDDM (insulin dependent diabetes mellitus) History of ETOH abuse Electrolyte imbalance CARPAL-PEDAL SPASMS Hypomagnesemia Marijuana use Disposition: ADMITTED INPATIENT Condition: Improved Admissions Decision to Admit Reason: Admit from ER (General) Decision to Admit/Date: Aug 14, 2020 Time/Decision to Admit Time: 07:20 Departure-Patient Inst. Referrals: [facility] [place] Primary Care Physician KENYA DAO DO Aug 14, 2020 06:47
[2020-08-14] MEDS ORDERED: fentaNYL INJ 100 MCG/2 ML AMP IVP ONE (07:15)
--- NOTE | 2020-08-14 08:25 | Diagnostic Imaging Report ---
PROCEDURE: CT abdomen and pelvis with contrast. TECHNIQUE: Multiple contiguous axial images were obtained through the abdomen and pelvis after administration of intravenous contrast. Auto Exposure Controls were utilized during the CT exam to meet ALARA standards for radiation dose reduction. All CT scans use one or more of the following dose optimizing techniques: automated exposure control, MA and/or KvP adjustment based on patient size and exam type or iterative reconstruction. INDICATION: Right upper quadrant abdominal pain. COMPARISON: None available. FINDINGS: LOWER THORAX: Lung bases are clear. Visualized heart is normal in size. LIVER: There is diffuse low attenuation of the hepatic parenchyma, with focal areas of sparing adjacent to gallbladder. No focal lesion is identified. GALLBLADDER: Normal. No calcified gallstone, pericholecystic fluid or gallbladder wall thickening. BILE DUCTS: No biliary ductal dilatation. SPLEEN: Normal. PANCREAS: There is moderate peripancreatic inflammatory change and stranding fluid. There is heterogeneous low-attenuation in the region of the pancreatic tail, which is partially exophytic in nature. This measures approximately 3.9 x 1.5 x 2.0 (transverse x AP x superior-inferior) cm. There is no pancreatic ductal dilatation. ADRENAL GLANDS: No nodules. KIDNEYS AND URETERS: The kidneys are symmetric in size and demonstrate normal enhancement. There is no renal calculus or hydronephrosis on either side. No suspicious mass. The ureters are normal. STOMACH AND BOWEL: Stomach is physiologically-distended. No bowel obstruction. No inflammatory changes. There is minimal colonic diverticulosis, without evidence of acute diverticulitis. APPENDIX: Normal. PELVIC ORGANS/BLADDER: Bladder is normal. Prostate gland is normal in size. PERITONEUM AND RETROPERITONEUM: No pneumoperitoneum. No omental or mesenteric mass. LYMPH NODES: No lymphadenopathy. VESSELS: Abdominal aorta is nonaneurysmal. No evidence of venous thrombosis. ABDOMINAL WALL: Unremarkable. BONES: Mild degenerative changes are noted in the spine. No acute osseous abnormality. Incidental note is made of old/healed posterior right 9th rib fracture. IMPRESSION: Acute pancreatitis, with moderate peripancreatic inflammatory change and stranding fluid. There is heterogeneous low-attenuation in the region of the pancreatic tail, which either represents an acute peripancreatic or necrotic collection. Continued surveillance is recommended. Hepatic steatosis. Other incidental and chronic findings are detailed above. Findings are in agreement with initial teleradiology report. Dictated by: Dictated on workstation # [id number]
[2020-08-14 08:30] VITALS: BP 135/89
[2020-08-14] MEDS ORDERED: ONDANSETRON 4 MG/2 ML (SDV) Z0FRAN IV PRN (08:30)
[2020-08-14] MEDS: LORazepam INJ 2 MG/ML (ATIVAN) VIAL IVP PRN ×2 (08:57→20:43)
[2020-08-14] MEDS: NS W/KCL 20 MEQ/L 1,000 ML IV SCH ×3 (10:46→17:17)
[2020-08-14] MEDS: PANTOPRAZOLE 40 MG (PROTONIX) VIAL IV SCH (10:47)
--- NOTE | 2020-08-14 11:03 | Diagnostic Imaging Report ---
INDICATION: Pancreatitis. COMPARISON: CT scan of 08/14/2020. PROCEDURE: Ultrasound abdomen complete. TECHNIQUE: Multiple Real-time grayscale images were obtained of the abdomen in various projections. FINDINGS: There is hepatomegaly with fatty change of the liver. The liver measures upwards of 20 cm. The bile ducts are not dilated. The common duct measures 2 mm. The portal vein is patent. The gallbladder appears normal with no gallstones or wall thickening. The gallbladder wall measures 2 mm. The proximal portion of the pancreas is visualized and the pancreatic duct is not dilated. The spleen measures 11 cm and appears normal. The aorta, vena cava, and portal vein all show normal flow with Doppler sampling. The right kidney measures 10.8 x 4.9 x 4.9 cm. The left kidney measures 11 x 6.5 x 5.2 cm. No calculi. No hydronephrosis. No masses. There is no ascites. IMPRESSION: 1. Hepatomegaly with fatty liver changes. 2. The gallbladder and bile ducts appear normal. Dictated by: Dictated on workstation # [id number]
[2020-08-14 11:44] VITALS: BP 107/71
[2020-08-14] MEDS: inSUlin ASPART (NovoLOG) 1 UNIT/0.01 ML (CHARGE PER UNIT) SC SCH ×2 (11:56→17:17)
[2020-08-14] MEDS: KETOROLAC 30 MG/ML VIAL IV PRN ×2 (12:16→19:43)
[2020-08-14] MEDS: fentaNYL INJ 100 MCG/2 ML AMP IV PRN ×4 (12:37→22:43)
[2020-08-14] MEDS ORDERED: LISI10TA25 PO (12:40)
[2020-08-14] MEDS ORDERED: INSU100I29 SQ (12:40)
[2020-08-14] MEDS ORDERED: TEST200V21 IM (12:40)
[2020-08-14 15:31] VITALS: BP 116/77
--- NOTE | 2020-08-14 15:36 | Consultation - Surgery ---
History of Present Illness History of Present Illness Patient Consulted On(kenton/time) 08/14/20 15:35 Date Seen by Provider: Aug 14, 2020 Time Seen by Provider: 15:36 History of Present Illness Consult requested by Dr. Arriola for pancreatitis. Patient is a 40-year-old male who her last couple days began having some abdominal discomfort. Patient states it is kind of diffuse but then can to became more located around the umbilicus. Patient states that it is a sharp pain that now is kind to become more of a dull. Patient states nothing really seems to make it better or worse. Now there is no radiation of pain. Patient has history of alcohol use. He knows he should not be drinking with his history of pancreatitis he did have some alcohol a few days ago on Father's Day. Patien t had gallbladder ultrasound demonstrating fatty liver no gallstones or acute gallbladder findings. Patient has CT scan which demonstrated changes consistent with acute pancreatitis and either necrotic tell partially or beginning of a pseudocyst possibly. Allergies and Home Medications Allergies Coded Allergies: No Known Drug Allergies (Unverified , 10/12/19) Home Medications Atorvastatin Calcium 10 Mg Tablet, 10 MG PO HS, (Reported) Last Action: Held Insulin Detemir 100 Unit/1 Ml Insuln.pen, 10 UNIT SQ HS, (Reported) Last Action: Converted Lisinopril 10 Mg Tablet, 10 MG PO HS, (Reported) LAST FILLED 04-03-2020 #90/90 DAY SUPPLY Last Action: Held Testosterone Cypionate 200 Mg/1 Ml Vial, 200 MG IM MONTHLY, (Reported) Last Action: Held Patient Home Medication List Home Medication List Reviewed: Yes Past Aafddpu-Fadgez-Bgkknb Hx Patient Social History Number of Drinks Today: AA Drug of Choice: cannibus Smoking Status: Former Smoker Type Used: Cigarettes 2nd Hand Smoke Exposure: Yes Recent Hopitalizations: No Have you traveled recently?: No Immunizations Up To Date Tetanus Booster (TDap): Unknown Seasonal Allergies Seasonal Allergies: Yes Surgeries History of Surgeries: No Respiratory History of Respiratory Disorde: No Cardiovascular History of Cardiac Disorders: Yes Cardiac Disorders: High Cholesterol, Hypertension Neurological History of Neurological Disord: No Genitourinary History of Genitourinary Disor: No Gastrointestinal History of Gastrointestinal Di: Yes Gastrointestinal Disorders: Pancreatitis Musculoskeletal History of Musculoskeletal Dis: No Endocrine History of Endocrine Disorders: Yes Endocrine Disorders: Diabetes, Insulin dep HEENT History of HEENT Disorders: No Cancer History of Cancer: No Psychosocial History of Psychiatric Problem: Yes Behavioral Health Disorders: Anxiety Integumentary History of Skin or Integumenta: No Blood Transfusions History of Blood Disorders: No Reviewed Nursing Assessment Reviewed/Agree w Nursing PMH: Yes Family Medical History Significant Family History: No Pertinent Family Hx Review of Systems-General Constitutional: No chills, No diaphoresis EENTM: No blurred vision, No double vision Respiratory: No cough, No dyspnea on exertion Cardiovascular: No chest pain Gastrointestinal: abdominal pain; No nausea, No vomiting Genitourinary: No decreased output, No discharge Musculoskeletal: No back pain, No joint pain Skin: No change in color, No change in hair/nails Psychiatric/Neurological: Denies Anxiety, Denies Depressed, Denies Emotional Problems All Other Systems Reviewed Negative Unless Noted: Yes (Negative excepted noted.) Physical Exam-General Problems Physical Exam Vital Signs Vital Signs - First Documented 08/14/20 04:41 Temp 36.6 Pulse 135 Resp 20 B/P (MAP) 135/89 (104) Pulse Ox 96 O2 Delivery Room Air Capillary Refill : Less Than 3 Seconds General Appearance: WD/WN, no apparent distress HEENT: PERRL/EOMI, normal ENT inspection Neck: non-tender, supple Respiratory: chest non-tender, no respiratory distress, no accessory muscle use Cardiovascular: regular rate, rhythm, no JVD Gastrointestinal: soft, tenderness (Periumbilical); No mass Rectal: deferred Back: no CVA tenderness, no vertebral tenderness Extremities: non-tender, normal inspection Neurologic/Psychiatric: 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 systems 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 II-XII nml as tested, alert, normal mood/affect, oriented x 3 Skin: normal color, warm/dry Lymphatic: no adenopathy Data Review Labs Laboratory Tests 08/14/20 04:55: Urine Color ORANGE, Urine Clarity CLEAR, Urine pH 6.0, Urine Specific [place] 1.020, Urine Protein 1+H, Urine Glucose (UA) NEGATIVE, Urine Ketones TRACEH, Urine Nitrite NEGATIVE, Urine Bilirubin 2+H, Urine Urobilinogen 1.0, Urine Leukocyte Esterase NEGATIVE, Urine RBC (Auto) NEGATIVE, Urine RBC NONE, Urine WBC 0-2, Urine Crystals PRESENTH, Urine Calcium Oxalate Crystals MODERATEH, Urine Amorphous Sediment FEW LUIS FERNANDO URATESH, Urine Bacteria TRACE, Urine Casts PRE SENT, Urine Hyaline Casts 5-10H, Urine Mucus NEGATIVE, Urine Culture Indicated NO, Urine Opiates Screen POSITIVEH, Urine Oxycodone Screen NEGATIVE, Urine Methadone Screen NEGATIVE, Urine Propoxyphene Screen NEGATIVE, Urine Barbiturates Screen NEGATIVE, Ur Tricyclic Antidepressants Screen NEGATIVE, Urine Phencyclidine Screen NEGATIVE, Urine Amphetamines Screen NEGATIVE, Urine Methamphetamines Screen NEGATIVE, Urine Benzodiazepines Screen NEGATIVE, Urine Cocaine Screen NEGATIVE, Urine Cannabinoids Screen POSITIVEH 08/14/20 04:59: White Blood Count 10.8, Red Blood Count 4.66, Hemoglobin 14.9, Hematocrit 42, Mean Corpuscular Volume 90, Mean Corpuscular Hemoglobin 32, Mean Corpuscular Hemoglobin Concent 35, Red Cell Distribution Width 12.6, Platelet Count 167, Mean Platelet Volume 11.4, Immature Granulocyte % (Auto) 1, Neutrophils (%) (Auto) 72, Lymphocytes (%) (Auto) 17, Monocytes (%) (Auto) 9, Eosinophils (%) (Auto) 1, Basophils (%) (Auto) 1, Neutrophils # (Auto) 7.8, Lymphocytes # (Auto) 1.8, Monocytes # (Auto) 1.0, Eosinophils # (Auto) 0.1, Basophils # (Auto) 0.1, Immature Granulocyte # (Auto) 0.1, Sodium Level 132L, Potassium Level 3.7, Chloride Level 96L, Carbon Dioxide Level 20L, Anion Gap 16H, Blood Urea Nitrogen 8, Creatinine 1.15, Estimat Glomerular Filtration Rate > 60, BUN/Creatinine Ratio 7, Glucose Level 151H, Calcium Level 9.3, Corrected Calcium 9.1, Magnesium Level 1.5L, Total Bilirubin 1.5H, Aspartate Amino Transf (AST/SGOT) 83H, Alanine Aminotransferase (ALT/SGPT) 119H, Alkaline Phosphatase 92, Total Creatine Kinase 337H, Creatine Kinase MB 1.4, Myoglobin 123.6H, Total Protein 7.9, Albumin 4.2, Amylase Level 16L, Lipase 63, Serum Alcohol < 10 08/14/20 07:41: Glucometer 111H 08/14/20 11:53: Glucometer 135H Assessment/Plan Assessment/Plan Assessment/Plan Periumbilical abdominal pain Acute pancreatitis with possible pseudocyst Diabetes EtOH use Recommend IV fluids Ultrasound negative gallbladder not source. Likely EtOH use. Recommend cessation to patient Clear liquids can advance when patient does not have pain Pain control Would likely benefit from endoscopic ultrasound in near future to further evaluate tail of pancreas PAULA SCHMIDT DO Aug 14, 2020 15:36
[2020-08-14 20:00] VITALS: BP 120/73
--- NOTE | 2020-08-14 21:41 | History & Physical ---
HPI History of Present Illness: 40 yo male came to ER due to having contracted muscles in hands and feet that he could not resolve. His fingers cramped in flexion and mid foot cramped and flexed. He was very anxious about this. He has had problems with muscle spasms before, but never anything this bad. He has had abdominal pain on and off, had it for a couple of days a week or two ago and earlier this week. He had onset of significant worsening again today. 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 He did drink a few beers and a couple of drinks on Father's day. He admits that he knows he shouldn't drink at all, and uses alcohol at times as an anxiolytic related to his PTSD and agoraphobia. He used to take alprazolam in the past, would use a few times per week as needed. He has tried other non-benzodiazepines without benefit. Source: patient Date seen by provider: Aug 14, 2020 Time Seen by Provider: 14:40 Attending Physician Mark Arriola MD PCP [facility] Of Consult Date of Admission Aug 14, 2020 at 07:20 Home Medications Home Medications Reviewed patient Home Medication Reconciliation performed by pharmacy medication reconciliations software support technician and/or nursing. Patients Allergies have been reviewed. Allergies Coded Allergies: No Known Drug Allergies (Unverified , 10/12/19) [id number]-[id number] Hx Patient Social History Drug of Choice: cannibus Smoking Status: Former Smoker 2nd Hand Smoke Exposure: Yes Recent Hopitalizations: No Have you traveled recently?: No Immunizations Up To Date Tetanus Booster (TDap): Unknown Past Medical History PMHx: Pancreatitis PTSD Diabetes HTN SurgHx: Family Medical History Other Significan Family Hx: SOCIAL HISTORY: -STATES "OCCASIONAL" ETOH, NOW, BUT HISTORY OF VERY HEAVY USE/ABUSE -DENIES DRUG USE, BUT UDS + FOR THC AND OPIATES ON 08/14/20 -SMOKES 1-3 PACKS/DAY Review of Systems ([facility]) Constitutional: No fever Respiratory: No short of breath Cardiovascular: No chest pain Gastrointestinal: see HPI Musculoskeletal: see HPI Skin: no symptoms reported Psychiatric/Neurological: See HPI Reviewed Test Results Reviewed Test Results Lab Laboratory Tests Test 08/14/20 04:55 08/14/20 04:59 08/14/20 07:41 08/14/20 11:53 Range/Units Urine Color ORANGE Urine Clarity CLEAR Urine pH 6.0 5-9 Urine Specific [place] 1.020 1.016-1.022 Urine Protein 1+ H NEGATIVE Urine Glucose (UA) NEGATIVE NEGATIVE Urine Ketones TRACE H NEGATIVE Urine Nitrite NEGATIVE NEGATIVE Urine Bilirubin 2+ H NEGATIVE Urine Urobilinogen 1.0 < = 1.0 MG/DL Urine Leukocyte Esterase NEGATIVE NEGATIVE Urine RBC (Auto) NEGATIVE NEGATIVE Urine RBC NONE /HPF Urine WBC 0-2 /HPF Urine Crystals PRESENT H /LPF Urine Calcium Oxalate Crystals MODERATE H /LPF Urine Amorphous Sediment FEW LUIS FERNANDO URATES H /LPF Urine Bacteria TRACE /HPF Urine Casts PRESENT /LPF Urine Hyaline Casts 5-10 H /LPF Urine Mucus NEGATIVE /LPF Urine Culture Indicated NO Urine Opiates Screen POSITIVE H NEGATIVE Urine Oxycodone Screen NEGATIVE NEGATIVE Urine Methadone Screen NEGATIVE NEGATIVE Urine Propoxyphene Screen NEGATIVE NEGATIVE Urine Barbiturates Screen NEGATIVE NEGATIVE Ur Tricyclic Antidepressants Screen NEGATIVE NEGATIVE Urine Phencyclidine Screen NEGATIVE NEGATIVE Urine Amphetamines Screen NEGATIVE NEGATIVE Urine Methamphetamines Screen NEGATIVE NEGATIVE Urine Benzodiazepines Screen NEGATIVE NEGATIVE Urine Cocaine Screen NEGATIVE NEGATIVE Urine Cannabinoids Screen POSITIVE H NEGATIVE White Blood Count 10.8 4.3-11.0 10^3/uL Red Blood Count 4.66 4.30-5.52 10^6/uL Hemoglobin 14.9 13.3-17.7 g/dL Hematocrit 42 40-54 % Mean Corpuscular Volume 90 80-99 fL Mean Corpuscular Hemoglobin 32 25-34 pg Mean Corpuscular Hemoglobin Concent 35 32-36 g/dL Red Cell Distribution Width 12.6 10.0-14.5 % Platelet Count 167 130-400 10^3/uL Mean Platelet Volume 11.4 9.0-12.2 fL Immature Granulocyte % (Auto) 1 % Neutrophils (%) (Auto) 72 42-75 % Lymphocytes (%) (Auto) 17 12-44 % Monocytes (%) (Auto) 9 0-12 % Eosinophils (%) (Auto) 1 0-10 % Basophils (%) (Auto) 1 0-10 % Neutrophils # (Auto) 7.8 1.8-7.8 10^3/uL Lymphocytes # (Auto) 1.8 1.0-4.0 10^3/uL Monocytes # (Auto) 1.0 0.0-1.0 10^3/uL Eosinophils # (Auto) 0.1 0.0-0.3 10^3/uL Basophils # (Auto) 0.1 0.0-0.1 10^3/uL Immature Granulocyte # (Auto) 0.1 0.0-0.1 10^3/uL Sodium Level 132 L 135-145 MMOL/L Potassium Level 3.7 3.6-5.0 MMOL/L Chloride Level 96 L 98-107 MMOL/L Carbon Dioxide Level 20 L 21-32 MMOL/L Anion Gap 16 H 5-14 MMOL/L Blood Urea Nitrogen 8 7-18 MG/DL Creatinine 1.15 0.60-1.30 MG/DL Estimat Glomerular Filtration Rate > 60 BUN/Creatinine Ratio 7 Glucose Level 151 H 70-105 MG/DL Calcium Level 9.3 8.5-10.1 MG/DL Corrected Calcium 9.1 8.5-10.1 MG/DL Magnesium Level 1.5 L 1.6-2.4 MG/DL Total Bilirubin 1.5 H 0.1-1.0 MG/DL Aspartate Amino Transf (AST/SGOT) 83 H 5-34 U/L Alanine Aminotransferase (ALT/SGPT) 119 H 0-55 U/L Alkaline Phosphatase 92 40-136 U/L Total Creatine Kinase 337 H 30-200 U/L Creatine Kinase MB 1.4 <6.6 NG/ML Myoglobin 123.6 H 10.0-92.0 NG/ML Total Protein 7.9 6.4-8.2 GM/DL Albumin 4.2 3.2-4.5 GM/DL Amylase Level 16 L 25-125 U/L Lipase 63 8-78 U/L Serum Alcohol < 10 <10 MG/DL Glucometer 111 H 135 H 70-110 MG/DL Test 08/14/20 17:01 Range/Units Glucometer 283 H 70-110 MG/DL Radiology CT abdomen: IMPRESSION: Acute pancreatitis, with moderate peripancreatic inflammatory change and stranding fluid. There is heterogeneous low-attenuation in the region of the pancreatic tail, which either represents an acute peripancreatic or necrotic collection. Continued surveillance is recommended. Hepatic steatosis. Other incidental and chronic findings are detailed above. Findings are in agreement with initial teleradiology report. Physical Exam-([facility]) Physical Exam Vital Signs VS - Last 72 Hours, by Label 08/14/20 08/14/20 08/14/20 08/14/20 04:41 08:10 08:30 11:44 Temp 36.6 36.6 36.7 36.4 Pulse 135 135 76 67 Resp 20 20 19 19 B/P (MAP) 135/89 (104) 135/89 (104) 135/89 (104) 107/71 (83) Pulse Ox 96 96 93 96 O2 Delivery Room Air Room Air Room Air 08/14/20 08/14/20 08/14/20 15:31 20:00 21:12 Temp 36.7 36.5 Pulse 75 94 82 Resp 18 18 B/P (MAP) 116/77 (90) 120/73 (89) Pulse Ox 97 96 O2 Delivery Room Air Room Air Capillary Refill : Less Than 3 Seconds General Appearance: WD/WN, no apparent distress Respiratory: lungs clear, normal breath sounds Cardiovascular: regular rate, rhythm, no murmur Gastrointestinal: normal bowel sounds, non tender, soft Neurologic/Psychiatric: alert, normal mood/affect Skin: normal color, warm/dry Assessment/Plan Assessment/Plan Admission Status: Inpatient Order (span 2 midnights) Reason for Inpatient Admission: Pancreatitis (1) T2DM (type 2 diabetes mellitus) Status: Chronic Qualifiers: Qualified Codes: E11.65 - Type 2 diabetes mellitus with hyperglycemia; Z79.4 - snf (current) use of insulin (2) Pancreatitis Status: Acute Assessment & Plan: CT scan consistent with acute, but symptoms are mild and per patient, possible the tail abnormality was present in the past. IVF, NPO. Check gall bladder/liver US. Qualifiers: (3) Elevated liver enzymes Status: Acute Assessment & Plan: Ultrasound pending. (4) Carpopedal spasm Status: Acute Assessment & Plan: Calcium normal. Magnesium low, replaced. Suspect possible hyperventilation syndrome. (5) DVT prophylaxis Status: Acute Assessment & Plan: Enoxaparin MARK ARRIOLA MD Aug 14, 2020 21:41
[2020-08-14] MEDS: ENOXAPARIN 40 MG/0.4 ML (LOVENOX) SYR SQ SCH (22:47)
[2020-08-15 00:06] VITALS: BP 130/75
[2020-08-15] MEDS: NS W/KCL 20 MEQ/L 1,000 ML IV SCH ×4 (00:13→23:07)
[2020-08-15] MEDS: inSUlin ASPART (NovoLOG) 1 UNIT/0.01 ML (CHARGE PER UNIT) SC SCH ×5 (00:13→23:10)
[2020-08-15 03:48] VITALS: BP 111/70
[2020-08-15] MEDS: fentaNYL INJ 100 MCG/2 ML AMP IV PRN ×4 (05:35→20:52)
[2020-08-15] MEDS ORDERED: NICOTINE 21 MG (NICODERM) PATCH ONE (05:53)
[2020-08-15] MEDS: NICOTINE 21 MG (NICODERM) PATCH TD SCH (05:55)
[2020-08-15] MEDS: LORazepam INJ 2 MG/ML (ATIVAN) VIAL IVP PRN ×3 (05:55→21:09)
[2020-08-15 06:59] LABS: BASOPHILS # (AUTO) 0.1 10^3/uL (0.0-0.1); LYMPHOCYTES % (AUTO) 16 % (12-44); MEAN CORPUSCULAR HEMOGLOBIN 32 pg (25-34); MEAN CORPUSCULAR VOLUME 96 fL (80-99)
[2020-08-15 07:01] LABS: BASOPHILS % (AUTO) 1 % (0-10); EOSINOPHILS # (AUTO) 0.2 10^3/uL (0.0-0.3); EOSINOPHILS % (AUTO) 3 % (0-10); HEMATOCRIT 36 % (40-54); HEMOGLOBIN 11.9 g/dL (13.3-17.7); LYMPHOCYTES # (AUTO) 0.9 10^3/uL (1.0-4.0); MEAN CORPUSCULAR HGB CONC 33 g/dL (32-36); MEAN PLATELET VOLUME 11.4 fL (9.0-12.2); MONOCYTES # (AUTO) 0.5 10^3/uL (0.0-1.0); MONOCYTES % (AUTO) 8 % (0-12); NEUTROPHILS # (AUTO) 4.1 10^3/uL (1.8-7.8); NEUTROPHILS % (AUTO) 71 % (42-75); PLATELET COUNT 123 10^3/uL (130-400); WHITE BLOOD COUNT 5.8 10^3/uL (4.3-11.0)
[2020-08-15 07:25] LABS: AMYLASE 13 U/L (25-125); BUN/CREATININE RATIO 4; CALCIUM 7.9 MG/DL (8.5-10.1); CARBON DIOXIDE 22 MMOL/L (21-32); CHLORIDE 108 MMOL/L (98-107); CREATININE SERUM 0.95 MG/DL (0.60-1.30); GFR ESTIMATED > 60; GLUCOSE 137 MG/DL (70-105); LIPASE 38 U/L (8-78); POTASSIUM 4.4 MMOL/L (3.6-5.0); SODIUM 137 MMOL/L (135-145)
--- NOTE | 2020-08-15 07:30 | Progress Note - Surgery ---
Subjective Date Seen by a Provider: Aug 15, 2020 Time Seen by a Provider: 07:30 Subjective/Events-last exam Patient still with pain around the periumbilical region. He rates it about a 6 out of 10 where he states at times it was a 9 or so yesterday. Patient tolerating clear liquids but pain is now more of a crampy type pain. Liver enzymes improving. Denies nausea vomiting fever sweats chills shortness of breath or chest pain. Objective Exam Vital Signs Date Time Temp Pulse Resp B/P (MAP) Pulse Ox O2 Delivery O2 Flow Rate FiO2 08/15/20 03:48 36.3 71 18 111/70 (84) 97 Room Air 08/15/20 01:00 80 08/15/20 00:06 36.4 96 18 130/75 (93) 96 Room Air 08/14/20 21:12 82 08/14/20 20:00 36.5 94 18 120/73 (89) 96 Room Air 08/14/20 15:31 36.7 75 18 116/77 (90) 97 Room Air 08/14/20 11:44 36.4 67 19 107/71 (83) 96 Room Air 08/14/20 08:30 36.7 76 19 135/89 (104) 93 Room Air 08/14/20 08:10 36.6 135 20 135/89 (104) 96 I & O 08/15/20 07:00 Intake Total 2035 ml Balance 2035 ml Capillary Refill : Less Than 3 Seconds General Appearance: No Apparent Distress, WD/WN HEENT: PERRL/EOMI Neck: Normal Inspection Respiratory: Chest Non Tender, No Accessory Muscle Use, No Respiratory Distress Cardiovascular: Regular Rate, Rhythm, No JVD Gastrointestinal: soft, tenderness (Periumbilical no guarding or rebounding) Extremity: Normal Capillary Refill, No Pedal Edema, Other (CARPAL-PEDAL SPASMS ON ARRIVAL) Neurologic/Psychiatric: Alert, Oriented x3, No Motor/Sensory Deficits, replacer II- XII Norm as Tested, Other (ANXIOUS) Skin: Normal Color, Warm/Dry, Tattoos/Piercings (EXTENSIVE TATTOOS) Lymphatic: No Adenopathy Results Lab Laboratory Tests 08/14/20 07:41: Glucometer 111H 08/14/20 11:53: Glucometer 135H 08/14/20 17:01: Glucometer 283H 08/14/20 21:47: Glucometer 142H 08/15/20 00:09: Glucometer 216H 08/15/20 05:41: Glucometer 141H 08/15/20 06:50: White Blood Count 5.8, Red Blood Count 3.75L, Hemoglobin 11.9#L, Hematocrit 36L, Mean Corpuscular Volume 96, Mean Corpuscular Hemoglobin 32, Mean Corpuscular Hemoglobin Concent 33, Red Cell Distribution Width 13.2, Platelet Count 123L, Mean Platelet Volume 11.4, Immature Granulocyte % (Auto) 1, Neutrophils (%) (Auto) 71, Lymphocytes (%) (Auto) 16, Monocytes (%) (Auto) 8, Eosinophils (%) (Auto) 3, Basophils (%) (Auto) 1, Neutrophils # (Auto) 4.1, Lymphocytes # (Auto) 0.9L, Monocytes # (Auto) 0.5, Eosinophils # (Auto) 0.2, Basophils # (Auto) 0.1, Immature Granulocyte # (Auto) 0.1, Percent Immature Platelet Fraction 7.6, Sodium Level 137, Potassium Level 4.4, Chloride Level 108H, Carbon Dioxide Level 22, Anion Gap 7, Blood Urea Nitrogen 4L, Creatinine 0.95, Estimat Glomerular Filtration Rate > 60, BUN/Creatinine Ratio 4, Glucose Level 137H, Calcium Level 7.9L, Magnesium Level 2.0, Amylase Level 13L, Lipase 38 Assessment/Plan Assessment/Plan Assessment/Plan Acute pancreatitis with possible pseudocyst Likely secondary to EtOH use Periumbilical abdominal pain Diabetes IV hydration, pain control, continue on clear liquids advance diet when patient doesn't have pain. Liver enzymes decreasing. Near future consider endoscopic ultrasound to evaluate tail of pancreas. No surgical intervention. Gallbladder negative PAULA SCHMIDT DO Aug 15, 2020 07:30
[2020-08-15 07:53] VITALS: BP 118/71
[2020-08-15 08:20] LABS: ALBUMIN 3.1 GM/DL (3.2-4.5); BILIRUBIN,DIRECT 0.4 MG/DL (0.0-0.3); BILIRUBIN,INDIRECT 0.5 MG/DL; BILIRUBIN,TOTAL 0.9 MG/DL (0.1-1.0); TOTAL PROTEIN 5.6 GM/DL (6.4-8.2)
[2020-08-15] MEDS: PANTOPRAZOLE 40 MG (PROTONIX) VIAL IV SCH (08:58)
[2020-08-15] MEDS: KETOROLAC 30 MG/ML VIAL IV PRN (08:59)
--- NOTE | 2020-08-15 11:09 | Progress Note ---
Subjective Subjective/Events-last exam Afebrile, but is still having severe abdominal pain, states fentanyl isn't lasting long. Is tolerating liquids well, actually feels improved when he drinks. Objective Exam Last Set of Vital Signs Vital Signs Date Time Temp Pulse Resp B/P (MAP) Pulse Ox O2 Delivery O2 Flow Rate FiO2 08/15/20 07:53 36.4 73 20 118/71 (87) 96 Room Air Capillary Refill : Less Than 3 Seconds I&O Intake and Output 08/15/20 00:00 Intake Total 2760 ml Balance 2760 ml Intake Oral 660 ml IV Total 2100 ml # Voids 7 # Bowel Movements 1 Daily Weight Change Unsure General: Alert, No Acute Distress Lungs: Clear to Auscultation, Normal Air Movement Heart: Regular Rate, No Murmurs Abdomen: Normal Bowel Sounds, Soft, Other (mild ttp epigastric) Extremities: No Edema Psych/Mental Status: Mood NL Results/Procedures Lab Laboratory Tests 08/14/20 11:53: Glucometer 135H 08/14/20 17:01: Glucometer 283H 08/14/20 21:47: Glucometer 142H 08/15/20 00:09: Glucometer 216H 08/15/20 05:41: Glucometer 141H 08/15/20 06:50: White Blood Count 5.8, Red Blood Count 3.75L, Hemoglobin 11.9#L, Hematocrit 36L, Mean Corpuscular Volume 96, Mean Corpuscular Hemoglobin 32, Mean Corpuscular Hemoglobin Concent 33, Red Cell Distribution Width 13.2, Platelet Count 123L, Mean Platelet Volume 11.4, Immature Granulocyte % (Auto) 1, Neutrophils (%) (Auto) 71, Lymphocytes (%) (Auto) 16, Monocytes (%) (Auto) 8, Eosinophils (%) (Auto) 3, Basophils (%) (Auto) 1, Neutrophils # (Auto) 4.1, Lymphocytes # (Auto) 0.9L, Monocytes # (Auto) 0.5, Eosinophils # (Auto) 0.2, Basophils # (Auto) 0.1, Immature Granulocyte # (Auto) 0.1, Percent Immature Platelet Fraction 7.6, Sodium Level 137, Potassium Level 4.4, Chloride Level 108H, Carbon Dioxide Level 22, Anion Gap 7, Blood Urea Nitrogen 4L, Creatinine 0.95, Estimat Glomerular Filtration Rate > 60, BUN/Creatinine Ratio 4, Glucose Level 137H, Calcium Level 7.9L, Magnesium Level 2.0, Total Bilirubin 0.9, Direct Bilirubin 0.4H, Indirect Bilirubin 0.5, Aspartate Amino Transf (AST/SGOT) 50H, Alanine Aminotransferase (ALT/SGPT) 62H, Alkaline Phosphatase 59, Total Protein 5.6L, Albumin 3.1L, Amylase Level 13L, Lipase [address] abdomen: IMPRESSION: Acute pancreatitis, with moderate peripancreatic inflammatory change and stranding fluid. There is heterogeneous low-attenuation in the region of the pancreatic tail, which either represents an acute peripancreatic or necrotic collection. Continued surveillance is recommended. Hepatic steatosis. Other incidental and chronic findings are detailed above. Findings are in agreement with initial teleradiology report. Assessment/Plan Assessment/Plan (1) T2DM (type 2 diabetes mellitus) Status: Chronic Assessment & Plan: Sliding scale insulin Qualifiers: Qualified Codes: E11.65 - Type 2 diabetes mellitus with hyperglycemia; Z79.4 - rat exterminator (current) use of insulin (2) Pancreatitis Status: Acute Assessment & Plan: CT scan consistent with acute, but symptoms are mild and per patient, possible the tail abnormality was present in the past. IVF, NPO. Check gall bladder/liver US. 08/15 gall bladder okay on US, suspect alcoholic pancreatitis. Increase fentanyl dose, continue clear liquids Qualifiers: (3) Elevated liver enzymes Status: Acute Assessment & Plan: Hepatic steatosis noted. Enzymes decreasing. (4) Carpopedal spasm Status: Acute Assessment & Plan: Calcium normal. Magnesium low, replaced. Suspect possible hyperventilation syndrome. (5) DVT prophylaxis Status: Acute Assessment & Plan: Enoxaparin MARK MANJARREZ MD Aug 15, 2020 11:09
[2020-08-15 12:00] VITALS: BP 124/77
[2020-08-15 16:00] VITALS: BP 140/104
[2020-08-15 19:05] VITALS: BP 160/108
[2020-08-15] MEDS: ENOXAPARIN 40 MG/0.4 ML (LOVENOX) SYR SQ SCH (20:53)
[2020-08-16] MEDS ORDERED: lisINopril 20 MG (PRINIVIL) TABLET PO SCH
[2020-08-16] MEDS: fentaNYL INJ 100 MCG/2 ML AMP IV PRN ×4 (00:06→09:06)
[2020-08-16 00:35] VITALS: BP 165/109
[2020-08-16 04:10] VITALS: BP 169/103
[2020-08-16] MEDS: LORazepam INJ 2 MG/ML (ATIVAN) VIAL IVP PRN (05:19)
[2020-08-16 05:28] LABS: HEMATOCRIT 36 % (40-54); HEMOGLOBIN 11.8 g/dL (13.3-17.7); MEAN CORPUSCULAR HEMOGLOBIN 31 pg (25-34); MEAN CORPUSCULAR HGB CONC 33 g/dL (32-36); MEAN CORPUSCULAR VOLUME 96 fL (80-99); MEAN PLATELET VOLUME 11.5 fL (9.0-12.2); PLATELET COUNT 150 10^3/uL (130-400); WHITE BLOOD COUNT 5.9 10^3/uL (4.3-11.0)
[2020-08-16 05:50] LABS: ALBUMIN 3.3 GM/DL (3.2-4.5); CHLORIDE 108 MMOL/L (98-107); POTASSIUM 4.2 MMOL/L (3.6-5.0); SODIUM 141 MMOL/L (135-145)
[2020-08-16 05:51] LABS: CALCIUM 8.3 MG/DL (8.5-10.1)
[2020-08-16 05:52] LABS: GLUCOSE 98 MG/DL (70-105)
[2020-08-16 05:53] LABS: TOTAL PROTEIN 6.2 GM/DL (6.4-8.2)
[2020-08-16 05:54] LABS: BILIRUBIN,TOTAL 0.8 MG/DL (0.1-1.0); CARBON DIOXIDE 21 MMOL/L (21-32)
[2020-08-16 05:56] LABS: ALKALINE PHOSPHATASE 69 U/L (40-136); CREATININE SERUM 0.88 MG/DL (0.60-1.30); GFR ESTIMATED > 60
[2020-08-16 05:57] LABS: BUN/CREATININE RATIO 3
[2020-08-16 05:59] LABS: ALANINE AMINOTRANSFERASE 61 U/L (0-55)
[2020-08-16] MEDS: inSUlin ASPART (NovoLOG) 1 UNIT/0.01 ML (CHARGE PER UNIT) SC SCH (06:34)
[2020-08-16 07:27] VITALS: BP 154/100
[2020-08-16] MEDS: PANTOPRAZOLE 40 MG (PROTONIX) VIAL IV SCH (07:45)
[2020-08-16] MEDS: KETOROLAC 30 MG/ML VIAL IV PRN (07:45)
[2020-08-16] MEDS: NICOTINE 21 MG (NICODERM) PATCH TD SCH (07:45)
[2020-08-16 08:00] VITALS: BP 154/100
--- NOTE | 2020-08-16 08:06 | Discharge Summary ---
Diagnosis/Chief Complaint Date of Admission Aug 14, 2020 at 07:20 Date of Discharge Discharge Date: Aug 16, 2020 Primary Care Jason Ash - [facility] Summary Discharge Physical Exam Allergies: Coded Allergies: No Known Drug Allergies (Unverified , 10/12/19) Vitals & I&Os Vital Signs Date Time Temp Pulse Resp B/P (MAP) Pulse Ox O2 Delivery O2 Flow Rate FiO2 08/16/20 07:00 67 08/16/20 04:10 36.9 17 169/103 (125) 96 Room Air General Appearance: No Apparent Distress Respiratory: Chest Non Tender, Lungs Clear, Normal Breath Sounds, No Accessory Muscle Use, No Respiratory Distress Cardiovascular: Regular Rate, Rhythm, No Edema, No Gallop, No JVD, No Murmur, Normal Peripheral Pulses Gastrointestinal: Normal Bowel Sounds, No Organomegaly, Other (Nondistended mild lower quadrant abdominal pain to palpation without rebound or guarding no pain in the upper quadrants and no pain in the left upper quadrant specifically where reported partially exophytic 3 cm mass is noted.) Hospital Course 40 yo male came to ER due to having contracted muscles in hands and feet that he could not resolve. His fingers cramped in flexion and mid foot cramped and flexed. He was very anxious about this. He has had problems with muscle spasms before, but never anything this bad. He has had abdominal pain on and off, had it for a couple of days a week or two ago and earlier this week. He had onset of significant worsening again today. 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 He did drink a few beers and a couple of drinks on Father's day. He admits that he knows he shouldn't drink at all, and uses alcohol at times as an anxiolytic related to his PTSD and agoraphobia. He used to take alprazolam in the past, would use a few times per week as needed. He has tried other non-benzodiazepine. CT scan of the abdomen revealed inflammatory change about the pancreas in addition to a partially exophytic mass in the tail of the pancreas measuring 3 cm in largest dimension. Amylase and lipase levels were normal with amylase/level actually being low around 16 lipase was around 60 with mild ALT and AST elevation. Magnesium level was slightly low at 1.5. This was replaced and muscle spasms resolved he continued to have abdominal pain for which she was given fentanyl. This is however lower quadrant abdominal pain he was not tender over the tail of the pancreas or upper abdomen. Surgery was consulted and the patient does voice understanding of need for referral to gastroenterology for endoscopic ultrasound and/or ERCP. While his normal amylase and lipase levels may be reflection of resolving acute pancreatitis by the time he came in with a partially exophytic nature of this pancreatic mass malignancy in light of his smoking and drinking history is a concern. I did take the liberty of obtaining a CA 19-9 level pending at the time of this dictation and discussed that while less likely malignancy need to be ruled out for which the patient also voices understanding. Additionally in regards to the cramping that was the major reason for coming to the emergency room his calcium level was normal at 9.3. Other electrolytes were normal as well.He was advised to call [facility] for follow-up next week.The patient was given a prescription for hydrocodone 5/325 1 every 4 as needed #20. Labs (last 24 hrs) Laboratory Tests 08/15/20 11:32: Glucometer 153H 08/15/20 17:48: Glucometer 163H 08/15/20 20:50: Glucometer 116H 08/15/20 23:09: Glucometer 184H 08/16/20 04:54: White Blood Count 5.9, Red Blood Count 3.76L, Hemoglobin 11.8L, Hematocrit 36L, Mean Corpuscular Volume 96, Mean Corpuscular Hemoglobin 31, Mean Corpuscular Hem oglobin Concent 33, Red Cell Distribution Width 13.1, Platelet Count 150, Mean Platelet Volume 11.5, Sodium Level 141, Potassium Level 4.2, Chloride Level 108H , Carbon Dioxide Level 21, Anion Gap 12, Blood Urea Nitrogen 3L, Creatinine 0.88, Estimat Glomerular Filtration Rate > 60, BUN/Creatinine Ratio 3, Glucose Level 98, Calcium Level 8.3L, Corrected Calcium 8.9, Total Bilirubin 0.8, Aspartate Amino Transf (AST/SGOT) 47H, Alanine Aminotransferase (ALT/SGPT) 61H, Alkaline Phosphatase 69, Total Protein 6.2L, Albumin 3.3 08/16/20 05:12: Glucometer 97 Patient resulted labs reviewed. Pending Labs Laboratory Tests 08/16/20 04:54: White Blood Count 5.9, Red Blood Count 3.76, Hemoglobin 11.8, Hematocrit 36, Mean Corpuscular Volume 96, Mean Corpuscular Hemoglobin 31, Mean Corpuscular Hemoglobin Concent 33, Red Cell Distribution Width 13.1, Platelet Count 150, Mean Platelet Volume 11.5, Sodium Level 141, Potassium Level 4.2, Chloride Level 108, Carbon Dioxide Level 21, Anion Gap 12, Blood Urea Nitrogen 3, Creatinine 0.88, Estimat Glomerular Filtration Rate > 60, BUN/Creatinine Ratio 3, Glucose Level 98, Calcium Level 8.3, Corrected Calcium 8.9, Total Bilirubin 0.8, Aspartate Amino Transf (AST/SGOT) 47, Alanine Aminotransferase (ALT/SGPT) 61, Alkaline Phosphatase 69, Total Protein 6.2, Albumin 3.3, CA 19-9 Antigen [Pending] 08/16/20 05:12: Glucometer 97 Discussion & Recommendations Discharge Planning: >30 minutes discharge planning Discharge Home Medications: Active Scripts Active Reported Testosterone Cypionate 200 Mg/1 Ml Vial 200 Mg IM MONTHLY Lisinopril 10 Mg Tablet 10 Mg PO HS LAST FILLED 04-03-2020 #90/90 DAY SUPPLY Atorvastatin Calcium 10 Mg Tablet 10 Mg PO HS Levemir Flextouch (Insulin Detemir) 100 Unit/1 Ml Insuln.pen 10 Unit SQ HS Instructions to patient/family Please see electronic discharge instructions given to patient. MARTINA PALACIOS MD Aug 16, 2020 08:05
== END 2020-08-16 10:13 | disposition home or self-care (01) | DRG 439 ==
LOC: EDUNIT# 04:31 → ER 04:33 → 4TH 07:20
PROVIDERS: ADMIT Family Medicine; ATTEND Family Medicine
DX: K85.20 Alcohol induced acute pancreatitis without necrosis or infection (principal); R29.0 Tetany; F10.10 Alcohol abuse, uncomplicated; E87.8 Other disorders of electrolyte and fluid balance, not elsewhere classified; K76.0 Fatty (change of) liver, not elsewhere classified; E83.42 Hypomagnesemia; F41.9 Anxiety disorder, unspecified; E11.9 Type 2 diabetes mellitus without complications; F12.90 Cannabis use, unspecified, uncomplicated; F17.210 Nicotine dependence, cigarettes, uncomplicated; E78.00 Pure hypercholesterolemia, unspecified; I10 Essential (primary) hypertension; F43.10 Post-traumatic stress disorder, unspecified; Z79.4 Long term (current) use of insulin
CPT/HCPCS: 36415; 74177; 76700; 80048; 80053; 80076; 80306; 80320; 81000; 82150; 82550; 82553; 82947; 83690; 83735; 83874; 85025; 85027; 86301

== ENCOUNTER 2021-04-15 00:46 | Emergency (ER) | payer SELFPAY ==
[~2021-04-15 00:46] MED LIST changes: +ATOR10TA66 PO; +DICY20TA; +INSU100I29 SQ; +LISI10TA25 PO; +LISI5TAB20 PO; +TEST200V21 IM
[2021-04-15] MEDS ORDERED: ASPIRIN 81 MG CHEW (CHILDREN'S ASA) PO ONE (01:15)
[2021-04-15 01:27] LABS: BASOPHILS # (AUTO) 0.1 10^3/uL (0.0-0.1); BASOPHILS % (AUTO) 1 % (0-10); EOSINOPHILS % (AUTO) 0 % (0-10); MEAN CORPUSCULAR HEMOGLOBIN 32 pg (25-34); MEAN CORPUSCULAR HGB CONC 35 g/dL (32-36); MEAN CORPUSCULAR VOLUME 90 fL (80-99)
[2021-04-15 01:29] LABS: HEMATOCRIT 45 % (40-54); LYMPHOCYTES # (AUTO) 0.8 10^3/uL (1.0-4.0); LYMPHOCYTES % (AUTO) 9 % (12-44); MEAN PLATELET VOLUME 11.3 fL (9.0-12.2); MONOCYTES # (AUTO) 0.8 10^3/uL (0.0-1.0); MONOCYTES % (AUTO) 10 % (0-12); NEUTROPHILS # (AUTO) 6.9 10^3/uL (1.8-7.8); NEUTROPHILS % (AUTO) 80 % (42-75); PLATELET COUNT 130 10^3/uL (130-400); WHITE BLOOD COUNT 8.6 10^3/uL (4.3-11.0)
[2021-04-15 01:34] LABS: INR 0.9 (0.8-1.4); PROTHROMBIN TIME PATIENT 12.5 SEC (12.2-14.7)
[2021-04-15 01:36] LABS: ALBUMIN 4.3 GM/DL (3.2-4.5); POTASSIUM 4.1 MMOL/L (3.6-5.0)
[2021-04-15 01:37] LABS: CALCIUM 8.8 MG/DL (8.5-10.1)
[2021-04-15 01:38] LABS: TOTAL PROTEIN 7.9 GM/DL (6.4-8.2)
[2021-04-15 01:40] LABS: BILIRUBIN,TOTAL 0.6 MG/DL (0.1-1.0)
[2021-04-15 01:42] LABS: CREATININE SERUM 1.13 MG/DL (0.60-1.30)
[2021-04-15 01:45] LABS: MAGNESIUM 1.5 MG/DL (1.6-2.4)
[2021-04-15 01:52] LABS: CREATINE KINASE MB 0.9 NG/ML (<6.6)
[2021-04-15] MEDS ORDERED: NS IV 1000 ML 1,000 ML IV SCH (02:00)
[2021-04-15] MEDS ORDERED: LORazepam INJ 2 MG/ML (ATIVAN) VIAL IVP ONE (02:15)
[2021-04-15 02:19] LABS: BILIRUBIN,URINE NEGATIVE (NEGATIVE); CLARITY,URINE CLEAR; COLOR,URINE YELLOW; GLUCOSE, URINE (UA) NEGATIVE (NEGATIVE); KETONES,URINE NEGATIVE (NEGATIVE); LEUKOCYTE ESTERASE ,URINE NEGATIVE (NEGATIVE); NITRITE,URINE NEGATIVE (NEGATIVE); PH,URINE 5.5 (5-9); PROTEIN,URINE NEGATIVE (NEGATIVE)
[2021-04-15 02:38] LABS: BACTERIA,URINE NEGATIVE /HPF; SQUAMOUS EPITHELIAL CELL,UR 0-2 /HPF
[2021-04-15 02:41] LABS: AMPHETAMINE SCREEN, URINE NEGATIVE (NEGATIVE); BARBITURATE SCREEN URINE NEGATIVE (NEGATIVE); BENZODIAZEPINES SCREEN URINE POSITIVE (NEGATIVE); CANNABINOID SCREEN, URINE NEGATIVE (NEGATIVE); COCAINE SCREEN URINE POSITIVE (NEGATIVE); METHADONE STAT NEGATIVE (NEGATIVE); METHAMPHETAMINE SCREEN URINE S NEGATIVE (NEGATIVE); OPIATE SCREEN URINE POSITIVE (NEGATIVE); OXYCODONE STAT NEGATIVE (NEGATIVE); PROPOXYPHENE STAT NEGATIVE (NEGATIVE); TRICYCLIC ANTIDEPRESSANTS SCRE NEGATIVE (NEGATIVE)
[2021-04-15] MEDS ORDERED: D-ME473S11 PO (02:59)
[2021-04-15] MEDS ORDERED: BENZ100C18 PO (02:59)
--- NOTE | 2021-04-15 02:59 | ED General ---
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 PT TOOK AT HOME COVID TEST YESTERDAY AND IT WAS NEGATIVE Allergies and Home Medications Allergies Coded Allergies: No Known Drug Allergies (Unverified , 10/12/19) Patient Home Medication List Atorvastatin Calcium (Atorvastatin Calcium) 10 Mg Tablet, 10 MG PO HS, (Reported) Entered as Reported by: FANNY HAIR on 08/14/20 1240 Insulin Detemir (Levemir Flextouch) 100 Unit/1 Ml Insuln.pen, 10 UNIT SQ HS, (Reported) Entered as Reported by: FANNY HAIR on 08/14/20 1240 Lisinopril (Lisinopril) 10 Mg Tablet, 10 MG PO HS, (Reported) Entered as Reported by: FANNY HAIR on 08/14/20 1240 Testosterone Cypionate (Testosterone Cypionate) 200 Mg/1 Ml Vial, 200 MG IM MONTHLY, (Reported) Entered as Reported by: AFNNY HAIR on 08/14/20 1240 Past Lkihjkb-Ddfxda-Ndptny Hx Patient Social History Tobacco Use?: Yes Tobacco type used: Cigarettes Smoking Status: Current Everyday Smoker Substance use?: No Alcohol Use?: Yes Alcohol Frequency: Rarely Pt feels they are or have been: No Immunizations Up To Date Tetanus Booster (TDap): Unknown Influenza Vaccine Up-to-Date: No; Not Current First/Initial COVID19 Vaccinat: 04/24/20 Second COVID19 Vaccination Joe: 05/16/20 COVID19 Vaccine 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: MARLENE Seasonal Allergies Seasonal Allergies: Yes Past Medical History Surgery/Hospitalization HX: DM, HTN, HLD, Surgeries: No Respiratory: No Cardiac: Yes High Cholesterol, Hypertension Neurological: No Genitourinary: No Gastrointestinal: Yes Pancreatitis Musculoskeletal: No Endocrine: Yes Diabetes, Insulin dep HEENT: No Cancer: No Psychosocial: Yes Anxiety Integumentary: No Blood Disorders: No Family Medical History No Pertinent Family Hx SOCIAL HISTORY: -STATES "OCCASIONAL" ETOH, NOW, BUT HISTORY OF VERY HEAVY USE/ABUSE -DENIES DRUG USE, BUT UDS + FOR THC AND OPIATES ON 08/14/20 -SMOKES 1-3 PACKS/DAY Physical Exam Vital Signs Vital Signs - First Documented 04/15/21 00:54 Temp 36.9 Pulse 105 Resp 18 B/P (MAP) 167/121 (136) Pulse Ox 97 Capillary Refill : Less Than 3 Seconds Height, Weight, BMI Height: '" Weight: lbs. oz. kg; 29.20 BMI Method: Progress/Results/Core Measures Suspected Sepsis SIRS Temperature: Pulse: 105 Respiratory Rate: 18 Laboratory Tests 04/15/21 01:09: White Blood Count 8.6 Blood Pressure 167 /121 Mean: 136 Laboratory Tests 04/15/21 01:09: Creatinine 1.13, INR Comment 0.9, Platelet Count 130, Total Bilirubin 0.6 Results/Orders Lab Results Laboratory Tests Test 04/15/21 01:09 04/15/21 01:48 04/15/21 01:52 04/15/21 02:10 Range/Units White Blood Count 8.6 4.3-11.0 10^3/uL Red Blood Count 5.06 4.30-5.52 10^6/uL Hemoglobin 16.0 13.3-17.7 g/dL Hematocrit 45 40-54 % Mean Corpuscular Volume 90 80-99 fL Mean Corpuscular Hemoglobin 32 25-34 pg Mean Corpuscular Hemoglobin Concent 35 32-36 g/dL Red Cell Distribution Width 11.7 10.0-14.5 % Platelet Count 130 130-400 10^3/uL Mean Platelet Volume 11.3 9.0-12.2 fL Immature Granulocyte % (Auto) 1 % Neutrophils (%) (Auto) 80 H 42-75 % Lymphocytes (%) (Auto) 9 L 12-44 % Monocytes (%) (Auto) 10 0-12 % Eosinophils (%) (Auto) 0 0-10 % Basophils (%) (Auto) 1 0-10 % Neutrophils # (Auto) 6.9 1.8-7.8 10^3/uL Lymphocytes # (Auto) 0.8 L 1.0-4.0 10^3/uL Monocytes # (Auto) 0.8 0.0-1.0 10^3/uL Eosinophils # (Auto) 0.0 0.0-0.3 10^3/uL Basophils # (Auto) 0.1 0.0-0.1 10^3/uL Immature Granulocyte # (Auto) 0.0 0.0-0.1 10^3/uL Percent Immature Platelet Fraction 8.0 H 0.0-7.6 % Erythrocyte Sedimentation Rate 10 0-15 MM/HR Prothrombin Time 12.5 12.2-14.7 SEC INR Comment 0.9 0.8-1.4 Activated Partial Thromboplast Time 32 24-35 SEC D-Dimer 0.49 0.00-0.49 UG/ML Sodium Level 129 L 135-145 MMOL/L Potassium Level 4.1 3.6-5.0 MMOL/L Chloride Level 96 L 98-107 MMOL/L Carbon Dioxide Level 18 L 21-32 MMOL/L Anion Gap 15 H 5-14 MMOL/L Blood Urea Nitrogen 8 7-18 MG/DL Creatinine 1.13 0.60-1.30 MG/DL Estimat Glomerular Filtration Rate 84 BUN/Creatinine Ratio 7 Glucose Level 154 H 70-105 MG/DL Calcium Level 8.8 8.5-10.1 MG/DL Corrected Calcium 8.6 8.5-10.1 MG/DL Magnesium Level 1.5 L 1.6-2.4 MG/DL Total Bilirubin 0.6 0.1-1.0 MG/DL Aspartate Amino Transf (AST/SGOT) 117 H 5-34 U/L Alanine Aminotransferase (ALT/SGPT) 87 H 0-55 U/L Alkaline Phosphatase 86 40-136 U/L Total Creatine Kinase 240 H 30-200 U/L Creatine Kinase MB 0.9 <6.6 NG/ML Myoglobin 39.0 10.0-92.0 NG/ML Troponin I < 0.028 <0.028 NG/ML C-Reactive Protein High Sensitivity 1.40 H 0.00-0.50 MG/DL B-Type Natriuretic Peptide < 10.0 <100.0 PG/ML Total Protein 7.9 6.4-8.2 GM/DL Albumin 4.3 3.2-4.5 GM/DL Amylase Level 13 L 25-125 U/L Lipase 16 8-78 U/L Procalcitonin 0.06 <0.10 NG/ML Serum Alcohol 10 <10 MG/DL Influenza Type A (RT-PCR) Detected H Not Detecte Influenza Type B (RT-PCR) Not Detected Not Detecte SARS-CoV-2 RNA (RT-PCR) Not Detected Not Detecte Glucometer 196 H 70-110 MG/DL Urine Color YELLOW Urine Clarity CLEAR Urine pH 5.5 5-9 Urine Specific [place] 1.020 1.016-1.022 Urine Protein NEGATIVE NEGATIVE Urine Glucose (UA) NEGATIVE NEGATIVE Urine Ketones NEGATIVE NEGATIVE Urine Nitrite NEGATIVE NEGATIVE Urine Bilirubin NEGATIVE NEGATIVE Urine Urobilinogen 0.2 < = 1.0 MG/DL Urine Leukocyte Esterase NEGATIVE NEGATIVE Urine RBC (Auto) NEGATIVE NEGATIVE Urine RBC NONE /HPF Urine WBC NONE /HPF Urine Squamous Epithelial Cells 0-2 /HPF Urine Crystals NONE /LPF Urine Bacteria NEGATIVE /HPF Urine Casts NONE /LPF Urine Mucus NEGATIVE /LPF Urine Culture Indicated NO Urine Opiates Screen POSITIVE H NEGATIVE Urine Oxycodone Screen NEGATIVE NEGATIVE Urine Methadone Screen NEGATIVE NEGATIVE Urine Propoxyphene Screen NEGATIVE NEGATIVE Urine Barbiturates Screen NEGATIVE NEGATIVE Ur Tricyclic Antidepressants Screen NEGATIVE NEGATIVE Urine Phencyclidine Screen NEGATIVE NEGATIVE Urine Amphetamines Screen NEGATIVE NEGATIVE Urine Methamphetamines Screen NEGATIVE NEGATIVE Urine Benzodiazepines Screen POSITIVE H NEGATIVE Urine Cocaine Screen POSITIVE H NEGATIVE Urine Cannabinoids Screen NEGATIVE NEGATIVE My Orders Orders - KENYA DAO DO Accucheck Stat ONCE (04/15/21 01:13) Ed Iv/Invasive Line Start (04/15/21 01:13) Ekg Tracing (04/15/21 01:13) O2 (04/15/21 01:13) Monitor-Rhythm Ecg Trace Only (04/15/21 01:13) Cbc With Automated Diff (04/15/21 01:13) Magnesium (04/15/21 01:13) Chest 1 View, Ap/Pa Only (04/15/21 01:13) Ekg Tracing (04/15/21 01:13) Comprehensive Metabolic Panel (04/15/21 01:13) Myoglobin Serum (04/15/21 01:13) Protime With Inr (04/15/21 01:13) Partial Thromboplastin Time (04/15/21 01:13) O2 (04/15/21 01:13) Ed Iv/Invasive Line Start (04/15/21 01:13) Creatine Kinase (04/15/21 01:13) Creatine Kinase Mb (04/15/21 01:13) Lipase (04/15/21 01:13) Amylase (04/15/21 01:13) Bnp [place] (04/15/21 01:13) Fibrin Degradation Products (04/15/21 01:13) Troponin I [place] (04/15/21 01:13) Aspirin Chewable Tablet (Baby Aspirin Ch (04/15/21 01:15) Procalcitonin (Pct) (04/15/21 01:13) Hs C Reactive Protein (04/15/21 01:13) Erythrocyte Sedimentation Rate (04/15/21 01:13) Covid 19 Inhouse Test (04/15/21 01:13) Alcohol (04/15/21 01:13) Drug Screen Stat (Urine) (04/15/21 01:13) Ua Culture If Indicated (04/15/21 01:13) Influenza A And B By Pcr (04/15/21 01:13) Isolation Central Supply Req (04/15/21 01:13) Ed Iv/Invasive Line Start (04/15/21 01:59) Ns Iv 1000 Ml (Sodium Chloride 0.9%) (04/15/21 02:00) Lorazepam Injection (Ativan Injection) (04/15/21 02:15) Benzonatate Capsule (Tessalon Perles) (04/15/21 09:00) Promethazine/ Codeine Syrup (Phenergan W (04/15/21 03:00) Medications Given in ED Current Medications Medications Dose Ordered Sig/Shelby Route Start Time Stop Time Status Last Admin Dose Admin Aspirin 324 mg ONCE ONCE PO 04/15/21 01:15 04/15/21 01:16 DC 04/15/21 01:47 324 MG Lorazepam 1 mg ONCE ONCE IVP 04/15/21 02:15 04/15/21 02:16 DC 04/15/21 02:17 1 MG Vital Signs/I&O 04/15/21 00:54 Temp 36.9 Pulse 105 Resp 18 B/P (MAP) 167/121 (136) Pulse Ox 97 Capillary Refill : Less Than 3 Seconds Blood Pressure Mean: 136 Point of Care Testing Finger Stick Blood Glucose: 196 Blood Glucose Action Taken: DR DAO NOTIFIED Progress Note : Progress Note PT IS OUTSIDE TREATMENT WINDOW FOR INFLUENZA, SYMPTOMS ONGOING FOR OVER 3 DAYS Departure Impression Primary Impression: Chest pain Additional Impressions: Influenza A Illicit drug use IDDM (insulin dependent diabetes mellitus) Chest wall pain Electrolyte imbalance HTN (hypertension) Disposition: HOME, SELF-CARE Condition: Stable Departure-Patient Inst. Decision time for Depature: 02:50 Referrals: [facility] (PCP) Primary Care Physician BRYANT MCDONALD (Family) Primary Care Physician Patient Instructions: Chest Pain (DC), DASH Diet, DIABETES, Flu, Adult ED, High Blood Pressure ED, Polysubstance Use Disorder (DC), Sick Day Management for Diabetics Add. Discharge Instructions: CLEAR LIQUIDS--WATER, BROTH, JELLO, GATORADE FOLLOW 1200 CALORIE ADA DIET, AND CHECK YOUR BLOOD SUGAR 3-4 TIMES A DAY TAKE ALL OF YOUR MEDICATIONS PRESCRIBED TYLENOL 1 GRAM AND MOTRIN 800 MG 4 TIMES A DAY FOR PAIN OR FEVER NO DRUGS !!! NO SMOKING !!! QUARANTINE YOURSELF AND ALL CLOSE CONTACTS FOR THE REMAINDER OF THE WEEK FOLLOW UP WITH [facility] NEXT WEEK FOR RECHECK RETURN TO ER IF SYMPTOMS WORSEN All discharge instructions reviewed with patient and/or family. Voiced understanding. Scripts Promethazine/Dextromethorphan (Promethazine-Dm Syrup) 473 Ml Syrup 5 ML PO Q4H for Cough, #200 ML Prov: KENYA DAO DO 04/15/21 Benzonatate (TESSALON PERLES) 100 Mg Capsule 200 MG PO TID, #30 CAP Prov: KENYA DAO DO 04/15/21 Work/School Note: Work Release Form Date Seen in the Emergency Department: Apr 14, 2021 Return to Work: Apr 20, 2021 KENYA DAO DO Apr 15, 2021 02:59
[2021-04-15] MEDS ORDERED: BENZONATATE 100 MG (TESSALON) CAPSULE PO ONE (03:00)
[2021-04-15] MEDS ORDERED: PROMETHAZINE/ CODEINE SYRUP 5 ML UDC PO ONE (03:00)
[2021-04-15 03:09] VITALS: BP 154/98
--- NOTE | 2021-04-15 06:36 | Diagnostic Imaging Report ---
INDICATION: Chest pain COMPARISON: None. FINDINGS: FINDINGS: Single view chest demonstrates clear lungs bilaterally. The heart is normal. There is no pneumothorax but osseous structures normal. IMPRESSION: Negative chest. Dictated by: Dictated on workstation # [id number]
[2021-04-15] MEDS ORDERED: BENZONATATE 100 MG (TESSALON) CAPSULE PO SCH (09:00)
== END 2021-04-15 03:09 | disposition home or self-care (01) ==
LOC: EDUNIT# 00:46 → ER 00:49
DX: R07.89 Other chest pain (principal); J11.1 Influenza due to unidentified influenza virus with other respiratory manifestations; F19.90 Other psychoactive substance use, unspecified, uncomplicated; E11.9 Type 2 diabetes mellitus without complications; E87.8 Other disorders of electrolyte and fluid balance, not elsewhere classified; I10 Essential (primary) hypertension; F17.210 Nicotine dependence, cigarettes, uncomplicated; Z20.822 Contact with and (suspected) exposure to COVID-19; Z79.4 Long term (current) use of insulin
CPT/HCPCS: 71045; 80053; 80306; 81000; 82150; 82550; 82553; 82947; 83690; 83735; 83874; 83880; 84145; 84484; 85025; 85379; 85610; 85652; 85730; 86141; 87636; 93041; G0480; 36415; 80320; 93005

== ENCOUNTER 2021-07-13 12:08 | Inpatient (IN) | payer SELFPAY ==
[~2021-07-13] VITALS: Ht 193 cm; Wt 103.3 kg
[~2021-07-13 12:08] MED LIST changes: +BENZ100C18 PO; +D-ME473S11 PO
[2021-07-13 13:12] LABS: BILIRUBIN,URINE NEGATIVE (NEGATIVE); CLARITY,URINE CLEAR; COLOR,URINE YELLOW; GLUCOSE, URINE (UA) 2+ (NEGATIVE); KETONES,URINE NEGATIVE (NEGATIVE); LEUKOCYTE ESTERASE ,URINE NEGATIVE (NEGATIVE); NITRITE,URINE NEGATIVE (NEGATIVE); PROTEIN,URINE NEGATIVE (NEGATIVE)
[2021-07-13] MEDS ORDERED: fentaNYL INJ 100 MCG/2 ML AMP IVP ONE (13:15)
[2021-07-13] MEDS ORDERED: LACTATED RINGERS 1,000 ML IV ONE ×2 (13:15→15:15)
[2021-07-13] MEDS ORDERED: ONDANSETRON 4 MG/2 ML (SDV) Z0FRAN IVP ONE (13:15)
--- NOTE | 2021-07-13 13:19 | ED Abdominal Pain ---
General Chief Complaint: Abdominal/GI Problems Stated Complaint: ABD PAIN Nursing Triage Note: Pt arrival to ER with complaint of Abdominal Pain x3 Days. Pain to RUQ. Pain rated 9/10. Denies N/V/D. Source of Information: Patient Exam Limitations: No Limitations History of Present Illness Date Seen by Provider: July 13, 2021 Time Seen by Provider: 13:19 Initial Comments This is a 41-year-old male who presented to the ER with complaints of right upper quadrant abdominal pain for the past 3 days. States that he is having sharp stabbing pain that is constant. Denies any exacerbating or alleviating factors. He does have history of chronic pancreatitis but states this pain feels different. States it feels like his "liver is swollen". Currently rating pain 10/10. Has not taken anything prior to arrival. Also states that he has been having some nausea and vomiting with his last episode of emesis a couple hours prior to arrival. Does have history of chronic pancreatitis, denies alcohol use. He denies any diarrhea or constipation. No bloody, dark, tarry stools. Denies any genitourinary issues. No fevers, chills, cough, shortness of breath. Allergies and Home Medications Allergies Coded Allergies: No Known Drug Allergies (Unverified , 10/12/19) Patient Home Medication List Home Medication List Reviewed: Yes Atorvastatin Calcium (Atorvastatin Calcium) 10 Mg Tablet, 10 MG PO HS, (Reported) Entered as Reported by: FANNY HAIR on 08/14/201239 Last Action: Continued Insulin Detemir (Levemir Flextouch) 100 Unit/1 Ml Insuln.pen, 10 UNIT SQ HS, (R eported) Entered as Reported by: FANNY HAIR on 08/14/201239 Last Action: Held Lisinopril (Lisinopril) 10 Mg Tablet, 10 MG PO HS, (Reported) Entered as Reported by: FANNY HAIR on 08/14/201239 Last Action: Continued Mirtazapine (Remeron) 15 Mg Tablet, 15 MG PO HS, (Reported) Entered as Reported by: MARK MANJARREZ on 07/13/211811 Last Action: Converted Propranolol HCl (Propranolol HCl) 10 Mg Tablet, 10 MG PO BID, (Reported) Entered as Reported by: MARK MANJARREZ on 07/13/211811 Last Action: Converted Testosterone Cypionate (Testosterone Cypionate) 200 Mg/1 Ml Vial, 200 MG IM MONTHLY, (Reported) Entered as Reported by: FANNY HAIR on 08/14/20 1240 Last Action: Reviewed Discontinued Medications Benzonatate (Tessalon Perles) 100 Mg Capsule, 200 MG PO TID Discontinued Reason: No Longer Taking Prescribed by: KENYA DAO on 04/15/21258 Last Action: Discontinued Mirtazapine (Mirtazapine) 15 Mg Tab.rapdis, 15 MG PO BID Prescribed by: CELIO QUIROZ on 07/13/21 174 Last Action: Discontinued Promethazine/Dextromethorphan (Promethazine-Dm Syrup) 473 Ml Syrup, 5 ML PO Q4H Discontinued Reason: No Longer Taking Prescribed by: KENYA DAO on 04/15/21258 Last Action: Discontinued Review of Systems Review of Systems Constitutional: see HPI, fever, malaise, other (sweating ) EENTM: No Symptoms Reported Respiratory: No Symptoms Reported Cardiovascular: No Symptoms Reported Gastrointestinal: See HPI Genitourinary: No Symptoms Reported Musculoskeletal: no symptoms reported Skin: no symptoms reported Psychiatric/Neurological: No Symptoms Reported Endocrine: No Symptoms Reported Hematologic/Lymphatic: No Symptoms Reported Past Dnylibs-Afevev-Bxugfj Hx Patient Social History Tobacco Use?: Yes Tobacco type used: Cigarettes Smoking Status: Current Everyday Smoker Use of E-Cig and/or Vaping dev: No Substance use?: Yes Substance type: Marijuana Substance frequency: Once in a while Alcohol Use?: Yes Alcohol type: Beer, Hard Liquor Alcohol Frequency: Rarely Pt feels they are or have been: No Immunizations Up To Date Tetanus Booster (TDap): Unknown Influenza Vaccine Up-to-Date: No; Not Current First/Initial COVID19 Vaccinat: 04/24/20 Second COVID19 Vaccination Joe: 05/16/20 Third COVID19 Vaccination Date: 2020 Seasonal Allergies Seasonal Allergies: Yes Past Medical History Surgery/Hospitalization HX: DM, HTN, HLD, Surgeries: No Respiratory: No Cardiac: Yes High Cholesterol, Hypertension Neurological: No Genitourinary: No Gastrointestinal: Yes Pancreatitis Musculoskeletal: No Endocrine: Yes Diabetes, Insulin dep HEENT: No Cancer: No Psychosocial: Yes (POLY SUBSTANCE ABUSE) Anxiety Integumentary: No Blood Disorders: No Family Medical History No Pertinent Family Hx SOCIAL HISTORY: -STATES "OCCASIONAL" ETOH, NOW, BUT HISTORY OF VERY HEAVY USE/ABUSE -DENIES DRUG USE, BUT UDS + FOR THC AND OPIATES ON 08/14/20 -SMOKES 1-3 PACKS/DAY Physical Exam Vital Signs Vital Signs - First Documented 07/13/21 12:57 Temp 36.8 Pulse 74 Resp 18 B/P (MAP) 146/100 (115) Pulse Ox 97 O2 Delivery Room Air Capillary Refill : Less Than 3 Seconds Height/Weight/BMI Height: '" Weight: lbs. oz. kg; 30.00 BMI Method: General Appearance: WD/WN, no apparent distress HEENT: PERRL/EOMI, normal ENT inspection, pharynx normal Neck: full range of motion, supple, normal inspection Respiratory: lungs clear, normal breath sounds, no respiratory distress, no accessory muscle use Cardiovascular: regular rate, rhythm, no edema, no murmur Gastrointestinal: normal bowel sounds, soft, tenderness (RUQ tenderness ), hepatomegaly Extremities: normal range of motion, non-tender, normal inspection Back: normal inspection, no vertebral tenderness Neurologic/Psychiatric: no motor/sensory deficits, alert, normal mood/affect, oriented x 3 Skin: normal color, warm/dry Progress/Results/Core Measures Results/Orders Lab Results Laboratory Tests Test 07/13/21 13:07 07/13/21 13:22 Range/Units Urine Color YELLOW Urine Clarity CLEAR Urine pH 6.0 5-9 Urine Specific [place] 1.025 H 1.016-1.022 Urine Protein NEGATIVE NEGATIVE Urine Glucose (UA) 2+ H NEGATIVE Urine Ketones NEGATIVE NEGATIVE Urine Nitrite NEGATIVE NEGATIVE Urine Bilirubin NEGATIVE NEGATIVE Urine Urobilinogen 0.2 < = 1.0 MG/DL Urine Leukocyte Esterase NEGATIVE NEGATIVE Urine RBC (Auto) NEGATIVE NEGATIVE Urine RBC NONE /HPF Urine WBC NONE /HPF Urine Squamous Epithelial Cells RARE /HPF Urine Crystals NONE /LPF Urine Bacteria NEGATIVE /HPF Urine Casts NONE /LPF Urine Mucus RARE /LPF Urine Culture Indicated NO White Blood Count 6.9 4.3-11.0 10^3/uL Red Blood Count 5.13 4.30-5.52 10^6/uL Hemoglobin 16.7 13.3-17.7 g/dL Hematocrit 44 40-54 % Mean Corpuscular Volume 87 80-99 fL Mean Corpuscular Hemoglobin 33 25-34 pg Mean Corpuscular Hemoglobin Concent 38 H 32-36 g/dL Red Cell Distribution Width 11.6 10.0-14.5 % Platelet Count 166 130-400 10^3/uL Mean Platelet Volume 11.5 9.0-12.2 fL Immature Granulocyte % (Auto) 0 % Neutrophils (%) (Auto) 75 42-75 % Lymphocytes (%) (Auto) 18 12-44 % Monocytes (%) (Auto) 6 0-12 % Eosinophils (%) (Auto) 1 0-10 % Basophils (%) (Auto) 1 0-10 % Neutrophils # (Auto) 5.2 1.8-7.8 10^3/uL Lymphocytes # (Auto) 1.2 1.0-4.0 10^3/uL Monocytes # (Auto) 0.4 0.0-1.0 10^3/uL Eosinophils # (Auto) 0.1 0.0-0.3 10^3/uL Basophils # (Auto) 0.1 0.0-0.1 10^3/uL Immature Granulocyte # (Auto) 0.0 0.0-0.1 10^3/uL Sodium Level 128 L 135-145 MMOL/L Potassium Level 4.3 3.6-5.0 MMOL/L Chloride Level 96 L 98-107 MMOL/L Carbon Dioxide Level 13 L 21-32 MMOL/L Anion Gap 19 H 5-14 MMOL/L Blood Urea Nitrogen 14 7-18 MG/DL Creatinine 1.01 0.60-1.30 MG/DL Estimat Glomerular Filtration Rate 96 BUN/Creatinine Ratio 14 Glucose Level 266 H 70-105 MG/DL Calcium Level 9.6 8.5-10.1 MG/DL Corrected Calcium 9.6 8.5-10.1 MG/DL Total Bilirubin 0.7 0.1-1.0 MG/DL Aspartate Amino Transf (AST/SGOT) 341 H 5-34 U/L Alanine Aminotransferase (ALT/SGPT) 193 H 0-55 U/L Alkaline Phosphatase 77 40-136 U/L Total Protein 8.2 6.4-8.2 GM/DL Albumin 4.0 3.2-4.5 GM/DL Amylase Level 20 L 25-125 U/L Lipase 105 H 8-78 U/L Beta-Hydroxybutyrate (Chem panel) 0.09 0.00-0.27 MMOL/L My Orders Orders - DOMONIQUE CANNON [employer] Ua Culture If Indicated (07/13/21 12:16) Comprehensive Metabolic Panel (07/13/21 13:06) Lipase (07/13/21 13:06) Amylase (07/13/21 13:06) Ed Iv/Invasive Line Start (07/13/21 13:06) Cbc With Automated Diff (07/13/21 13:06) Lactated Ringers (Lr 1000 Ml Iv Solution (07/13/21 13:15) Fentanyl Inj (Sublimaze Injection) (07/13/21 13:15) Ondansetron Injection (Zofran Injectio (07/13/21 13:15) Ct Abdomen/Pelvis Wo (07/13/21 13:57) Beta Hydroxybutyrate (07/13/21 14:07) Hydromorphone Injection (Dilaudid Inject (07/13/21 14:15) Lactated Ringers (Lr 1000 Ml Iv Solution (07/13/21 15:15) Hydromorphone Injection (Dilaudid Inject (07/13/21 15:15) Nicotine Patch (Nicoderm Patch) (07/13/21 16:15) Medications Given in ED Current Medications Medications Dose Ordered Sig/Shelby Route Start Time Stop Time Status Last Admin Dose Admin Fentanyl Citrate 50 mcg ONCE ONCE IVP 07/13/21 13:15 07/13/21 13:20 DC 07/13/21 13:27 50 MCG Hydromorphone HCl 1 mg ONCE ONCE IV 07/13/21 14:15 07/13/21 14:16 DC 07/13/21 14:31 1 MG Hydromorphone HCl 1 mg ONCE ONCE IV 07/13/21 15:15 07/13/21 15:16 DC 07/13/21 15:21 1 MG Lactated Ringer's 1,000 ml @ 0 mls/hr Q0M ONCE IV 07/13/21 13:15 07/13/21 13:20 DC 07/13/21 13:27 999 MLS/HR Lactated Ringer's 1,000 ml @ 0 mls/hr Q0M ONCE IV 07/13/21 15:15 07/13/21 15:16 DC 07/13/21 15:20 999 MLS/HR Nicotine 21 mg ONCE ONCE TD 07/13/21 16:15 07/13/21 16:16 DC 07/13/21 16:37 21 MG Ondansetron HCl 4 mg ONCE ONCE IVP 07/13/21 13:15 07/13/21 13:20 DC 07/13/21 13:27 4 MG Vital Signs/I&O 07/13/21 12:57 Temp 36.8 Pulse 74 Resp 18 B/P (MAP) 146/100 (115) Pulse Ox 97 O2 Delivery Room Air Blood Pressure Mean: 115 Progress Progress Note : Progress Note Discussed case with Dr. Manjarrez. Will admit for acute pancreatitis, continue IVF and pain management. Will obtain gallbladder/liver US in the morning. Plan of care reviewed with patient and he is agreeable with plan. Diagnostic Imaging Diagonstic Imaging: CT Comments [facility], [place] NAME: KENDRA EASLEY [facility] REC#: [id number] PT STATUS: REG ER : 1980 PHYSICIAN: DOMONIQUE CANNON [employer] ADMIT DATE: 07/13/21/ER Signed Date of Exam:07/13/21 CT ABDOMEN/PELVIS WO EXAMINATION: CT abdomen and pelvis without contrast. TECHNIQUE: Multiple contiguous axial images were obtained through the abdomen and pelvis without the use of intravenous contrast. All CT scans use one or more of the following dose optimizing techniques: automated exposure control, MA and/or KvP adjustment based on patient size and exam type or iterative reconstruction. HISTORY: Right upper quadrant pain. COMPARISON: 08/14/2020. FINDINGS: Limited views of the lower thorax are unremarkable. Liver is steatotic. No focal liver lesions. There is no biliary ductal dilation. Gallbladder is normal. Small amount of stranding is present associated with the uncinate process of the pancreas suggestive of pancreatitis. Spleen is normal. Adrenal glands are normal. The kidneys are normal. There is no hydronephrosis. Urinary bladder is normal. Bowel is normal in caliber without obstruction or inflammation. Appendix is normal. No free fluid or air. No abdominal or pelvic lymphadenopathy. Aorta is normal in caliber without aneurysm. There are no suspicious osseous lesions. IMPRESSION: 1. Mild stranding associated with the uncinate process of the pancreas may represent acute pancreatitis. 2. Steatotic liver. Dictated by: Dictated on workstation # [id number] Dict: 07/13/21 1419 Trans: 07/13/219 AS6 [id number] Interpreted by: GEE ADAM MD Electronically signed by: GEE ADAM MD 07/13/21 1659 Departure Communication (Admissions) Time/Spoke to Admitting Phy: 15:54 Dr. Manjarrez. Impression Primary Impression: Pancreatitis Additional Impression: Elevated liver enzymes Disposition: ADMITTED INPATIENT Condition: Stable Admissions Decision to Admit Reason: Admit from ER (General) Decision to Admit/Date: July 13, 2021 Time/Decision to Admit Time: 14:50 Departure-Patient Inst. Referrals: [facility] (PCP) Primary Care Physician BRYANT MCDONALD (Family) Primary Care Physician DOMONIQUE ACNNON [employer]IP[employer] July 13, 2021 13:19
[2021-07-13 13:29] LABS: BACTERIA,URINE NEGATIVE /HPF; SQUAMOUS EPITHELIAL CELL,UR RARE /HPF
[2021-07-13 13:29] LABS: BASOPHILS # (AUTO) 0.1 10^3/uL (0.0-0.1); BASOPHILS % (AUTO) 1 % (0-10); EOSINOPHILS # (AUTO) 0.1 10^3/uL (0.0-0.3); EOSINOPHILS % (AUTO) 1 % (0-10); HEMATOCRIT 44 % (40-54); HEMOGLOBIN 16.7 g/dL (13.3-17.7); LYMPHOCYTES # (AUTO) 1.2 10^3/uL (1.0-4.0); LYMPHOCYTES % (AUTO) 18 % (12-44); MEAN CORPUSCULAR HEMOGLOBIN 33 pg (25-34); MEAN CORPUSCULAR HGB CONC 38 g/dL (32-36); MEAN CORPUSCULAR VOLUME 87 fL (80-99); MEAN PLATELET VOLUME 11.5 fL (9.0-12.2); MONOCYTES # (AUTO) 0.4 10^3/uL (0.0-1.0); MONOCYTES % (AUTO) 6 % (0-12); NEUTROPHILS # (AUTO) 5.2 10^3/uL (1.8-7.8); NEUTROPHILS % (AUTO) 75 % (42-75); PLATELET COUNT 166 10^3/uL (130-400); WHITE BLOOD COUNT 6.9 10^3/uL (4.3-11.0)
[2021-07-13 13:45] LABS: POTASSIUM 4.3 MMOL/L (3.6-5.0)
[2021-07-13 13:46] LABS: CALCIUM 9.6 MG/DL (8.5-10.1)
[2021-07-13 13:47] LABS: TOTAL PROTEIN 8.2 GM/DL (6.4-8.2)
[2021-07-13 13:49] LABS: BILIRUBIN,TOTAL 0.7 MG/DL (0.1-1.0)
[2021-07-13 13:51] LABS: CREATININE SERUM 1.01 MG/DL (0.60-1.30)
[2021-07-13] MEDS ORDERED: HYDROmorphone 2 MG/ML VIAL (DILAUDID) IV ONE ×2 (14:15→15:15)
--- NOTE | 2021-07-13 14:24 | Diagnostic Imaging Report ---
EXAMINATION: CT abdomen and pelvis without contrast. TECHNIQUE: Multiple contiguous axial images were obtained through the abdomen and pelvis without the use of intravenous contrast. All CT scans use one or more of the following dose optimizing techniques: automated exposure control, MA and/or KvP adjustment based on patient size and exam type or iterative reconstruction. HISTORY: Right upper quadrant pain. COMPARISON: 08/14/2020. FINDINGS: Limited views of the lower thorax are unremarkable. Liver is steatotic. No focal liver lesions. There is no biliary ductal dilation. Gallbladder is normal. Small amount of stranding is present associated with the uncinate process of the pancreas suggestive of pancreatitis. Spleen is normal. Adrenal glands are normal. The kidneys are normal. There is no hydronephrosis. Urinary bladder is normal. Bowel is normal in caliber without obstruction or inflammation. Appendix is normal. No free fluid or air. No abdominal or pelvic lymphadenopathy. Aorta is normal in caliber without aneurysm. There are no suspicious osseous lesions. IMPRESSION: 1. Mild stranding associated with the uncinate process of the pancreas may represent acute pancreatitis. 2. Steatotic liver. Dictated by: Dictated on workstation # [id number]
[2021-07-13] MEDS ORDERED: NICOTINE 21 MG (NICODERM) PATCH TD ONE (16:15)
[2021-07-13] MEDS: HYDROmorphone 2 MG/ML VIAL (DILAUDID) IV PRN ×3 (17:38→23:37)
[2021-07-13] MEDS ORDERED: CATHETER FLUSH 10 ML SYR IVP PRN (17:45)
[2021-07-13] MEDS ORDERED: PROMETHAZINE INJ 25 MG/ML (PHENERGAN) AMP IM PRN (17:45)
[2021-07-13] MEDS ORDERED: fentaNYL INJ 100 MCG/2 ML AMP IV PRN (17:45)
[2021-07-13] MEDS ORDERED: MIRT-47 PO (17:48)
[2021-07-13] MEDS: LACTATED RINGERS 1,000 ML IV SCH (18:02)
[2021-07-13] MEDS: PANTOPRAZOLE 40 MG (PROTONIX) VIAL IV SCH (18:07)
[2021-07-13 18:12] VITALS: BP 186/90
[2021-07-13] MEDS ORDERED: MIRT-96 PO (18:12)
[2021-07-13] MEDS ORDERED: PROP10TA8 PO (18:12)
[2021-07-13 18:16] VITALS: BP 146/100
[2021-07-13] MEDS ORDERED: RT-ALBUTEROL SULF 2.5 MG/3 ML PRE-MIX VIAL INH PRN (18:30)
[2021-07-13 20:00] VITALS: BP 156/80
[2021-07-13] MEDS: PROPRANOLOL 20 MG (INDERAL) TABLET PO SCH (20:16)
[2021-07-13] MEDS: lisINopril 10 MG (PRINIVIL) TABLET PO SCH (20:16)
[2021-07-13] MEDS: AtorvaSTATin TABLET 10 MG TABLET PO SCH (20:16)
[2021-07-13] MEDS: MIRTAZAPINE 15 MG (REMERON) TAB PO SCH (20:16)
[2021-07-13] MEDS ORDERED: diphenhydrAMINE 25 MG TAB (BENADRYL) PO PRN (20:30)
[2021-07-13] MEDS ORDERED: diphenhydrAMINE 25 MG TAB (BENADRYL) PO ONE (21:24)
[2021-07-14] VITALS: BP 162/95
[2021-07-14] MEDS: LACTATED RINGERS 1,000 ML IV SCH ×4 (00:30→20:52)
[2021-07-14] MEDS: HYDROmorphone 2 MG/ML VIAL (DILAUDID) IV PRN ×7 (01:56→18:39)
[2021-07-14] MEDS: diphenhydrAMINE 25 MG TAB (BENADRYL) PO PRN ×2 (03:43→08:37)
[2021-07-14 04:12] VITALS: BP 154/93
[2021-07-14] MEDS: ONDANSETRON 4 MG/2 ML (SDV) Z0FRAN IV PRN ×3 (04:12→16:17)
[2021-07-14 05:50] LABS: BASOPHILS # (AUTO) 0.1 10^3/uL (0.0-0.1); BASOPHILS % (AUTO) 1 % (0-10); EOSINOPHILS # (AUTO) 0.2 10^3/uL (0.0-0.3); EOSINOPHILS % (AUTO) 2 % (0-10); HEMATOCRIT 44 % (40-54); HEMOGLOBIN 15.9 g/dL (13.3-17.7); LYMPHOCYTES # (AUTO) 1.5 10^3/uL (1.0-4.0); LYMPHOCYTES % (AUTO) 15 % (12-44); MEAN CORPUSCULAR HEMOGLOBIN 32 pg (25-34); MEAN CORPUSCULAR HGB CONC 36 g/dL (32-36); MEAN CORPUSCULAR VOLUME 88 fL (80-99); MEAN PLATELET VOLUME 11.4 fL (9.0-12.2); MONOCYTES # (AUTO) 0.7 10^3/uL (0.0-1.0); MONOCYTES % (AUTO) 7 % (0-12); NEUTROPHILS # (AUTO) 7.4 10^3/uL (1.8-7.8); NEUTROPHILS % (AUTO) 75 % (42-75); PLATELET COUNT 124 10^3/uL (130-400); WHITE BLOOD COUNT 9.9 10^3/uL (4.3-11.0)
[2021-07-14 06:07] LABS: ALBUMIN 3.7 GM/DL (3.2-4.5); POTASSIUM 3.8 MMOL/L (3.6-5.0)
[2021-07-14 06:08] LABS: CALCIUM 8.7 MG/DL (8.5-10.1)
[2021-07-14 06:11] LABS: BILIRUBIN,TOTAL 1.8 MG/DL (0.1-1.0)
[2021-07-14 06:13] LABS: CREATININE SERUM 1.03 MG/DL (0.60-1.30)
[2021-07-14 07:36] VITALS: BP 149/91
[2021-07-14] MEDS: PROPRANOLOL 20 MG (INDERAL) TABLET PO SCH ×2 (08:31→20:52)
[2021-07-14] MEDS: PANTOPRAZOLE 40 MG (PROTONIX) VIAL IV SCH (08:31)
--- NOTE | 2021-07-14 08:57 | Diagnostic Imaging Report ---
CLINICAL INDICATION: Patient pancreatitis and elevated LFTs. EXAM: Right upper quadrant ultrasound. COMPARISON: Complete abdominal ultrasound dated 08/14/2020. FINDINGS: Patient body habitus and overlying bowel gas obscures portions of the intra-abdominal structures. Portion of pancreatic head and tail are partially obscured by bowel gas. Otherwise visualized portions of pancreas is grossly unremarkable. The abdominal aorta and IVC shows no significant abnormality. The liver measures 20.0 cm. The liver previously measured 20 cm and demonstrated diffuse hyperechogenicity. There is diffuse hyperechogenicity seen throughout the liver. There is no liver mass. The main portal vein demonstrates hepatopetal flow. The liver surface is smooth. There are no dilated intrahepatic or extrahepatic ducts. Common bile duct measures 4 mm. Gallbladder is mild to moderately fluid filled with no stones or sludge. There is no sonographic Hudson sign. There are no stones or sludge. The right kidney measures 10.8 cm in craniocaudal dimension. There is no hydronephrosis or renal mass. There is no abdominal ascites. IMPRESSION: 1: There is hepatomegaly and diffuse hyperechogenicity seen throughout the liver which may be related to diffuse fatty infiltration. 2: Pancreas is partially visualized. There is no peripancreatic fluid collection. 3: The remainder of this exam is unremarkable. Gallbladder is unremarkable and there is no dilated ducts. Dictated by: Dictated on workstation # [id number]
--- NOTE | 2021-07-14 11:13 | History & Physical ---
MARIE LIZARRAGA 07/14/21 1113: HPI History of Present Illness: Chief Complaint: Abdominal Pain History of Present Illness: Ernst De Santiago is a 41 year old male who presented to the ER on 07/13/21 with the chief complaint of abdominal pain. Medical history includes diabetes mellitus, hypertension, hyperlipidemia, anxiety, and previous episodes of pancreatitis. Patient reports having right upper quadrant pain for the past 3 days described as sharp, stabbing, and constant. Patient also has nausea and vomiting associated. Denies constipation or diarrhea. Patient had 2 previous episodes of pancreatitis. Does have history and current use of smoking, alcohol, and marijuana. Reports currently smoking 1-2 packs per day and has smoked since 15 years of age, estimated 52 pack year smoker. Patient also reports that he drinks alcohol casually, but 2 Sundays ago he drank "a lot" of alcohol, does not remember how much. When I visited the patient, he had elevated systolic blood pressure with recordings ranging from 146 to 186, vital signs otherwise stable. Patient expresses that he is having a lot of pain in his right upper quadrant that is spreading to the epigastric region. Workup showed mildly elevated lipase and elevated transaminases. CT scan showed mild stranding of the uncinate process of pancreas which may represent acute pancreatitis. He is receiving Dulotid 1mg Q2H PRN which he is using roughly every 2 hours, and patient stated that alternating Morphine and Dulotid in the past helped. Source: patient Exam Limitations: no limitations Date seen by provider: July 14, 2021 Time Seen by Provider: 08:17 Attending Physician [place] PCP Admitting Physician: Cindy Manjarrez MD Attending Physician: Cindy Manjarrez MD Consult Date of Admission July 13, 2021 at 16:19 Home Medications Home Medications Reviewed patient Home Medication Reconciliation performed by pharmacy medication reconciliations windshield repair technician and/or nursing. Patients Allergies have been reviewed. Allergies Coded Allergies: No Known Drug Allergies (Unverified , 07/14/21) XOQ-Xzbhgm-Fbbmlb Hx Patient Social History Drug of Choice: cannibus Smoking Status: Current Everyday Smoker (52 pack year history (1-2 ppd since 15 years of age)) 2nd Hand Smoke Exposure: Yes Recent Hopitalizations: No Alcohol Use?: Yes (casual with episodes of binge drinking) Substance type: Marijuana Tobacco type used: Cigarettes Have you traveled recently?: No Immunizations Up To Date Tetanus Booster (TDap): Unknown Influenza Vaccine Up-to-Date: Yes; Up-to-Date First/Initial COVID19 Vaccinat: 04/24/20 Second COVID19 Vaccination Joe: 05/16/20 Third COVID19 Vaccination Date: 2020 Past Medical History PMHx: Pancreatitis Diabetes Hypertension Hyperlipidemia Alcohol Use Cigarette Tobacco Use Marijuana Use Anxiety SurgHx: Denies Family Medical History Significant Family History: No Pertinent Family Hx Review of Systems ([place]) Constitutional: No chills, No diaphoresis, No dizziness, No fever EENTM: No hearing loss, No vision loss Respiratory: No cough, No dyspnea on exertion, No short of breath Cardiovascular: No chest pain, No edema, No palpitations Gastrointestinal: abdominal pain (RUQ (09/30)); No constipation, No diarrhea, No hematemesis; nausea, vomiting Genitourinary: No decreased output, No dysuria Musculoskeletal: No joint pain, No muscle pain Skin: No change in color, No dryness Psychiatric/Neurological: Anxiety; Denies Depressed, Denies Headache, Denies Numbness Physical Exam-([place]) Physical Exam Vital Signs VS - Last 72 Hours, by Label 07/13/21 07/13/21 07/13/21 07/13/21 12:57 16:37 18:12 18:16 Temp 36.8 36.6 36.8 Pulse 74 78 85 74 Resp 18 20 20 B/P (MAP) 146/100 (115) 161/102 186/90 (122) Pulse Ox 97 99 92 97 O2 Delivery Room Air Room Air Room Air FiO2 21 07/13/21 07/13/21 07/13/21 07/14/21 18:20 20:00 20:00 00:00 Temp 36.5 37.0 Pulse 77 76 Resp 20 18 B/P (MAP) 156/80 (105) 162/95 (117) Pulse Ox 97 95 O2 Delivery Room Air Room Air Room Air Room Air 07/14/21 07/14/21 07/14/21 04:12 07:25 07:36 Temp 36.9 37.2 Pulse 70 71 Resp 18 18 B/P (MAP) 154/93 (113) 149/91 (110) Pulse Ox 97 95 O2 Delivery Room Air Room Air Room Air Capillary Refill : Less Than 3 Seconds General Appearance: WD/WN, no apparent distress HEENT: PERRL/EOMI Neck: non-tender, full range of motion, supple, normal inspection Respiratory: chest non-tender, lungs clear, normal breath sounds, no respiratory distress, no accessory muscle use Cardiovascular: regular rate, rhythm, no edema, no murmur Peripheral Pulses: 2+ Dorsalis Pedis (R), 2+ Left Dors-Pedis (L), 2+ Radial Pulses (R), 2+ Radial Pulses (L) Gastrointestinal: normal bowel sounds, soft (8/10 pain RUQ with pain upon deep palpation. Negative Hudson's sign.), no pulsatile mass, tenderness Extremities: normal inspection, no pedal edema, no calf tenderness, normal capillary refill Neurologic/Psychiatric: alert, normal mood/affect, oriented x 3, other Skin: normal color, warm/dry Lymphatic: no adenopathy (Cervical and Supraclavicular) Assessment/Plan Assessment/Plan Admission Dx Pancreatitis, Elevated Transaminases Admission Status: Inpatient Order (span 2 midnights) Assessment & Plan Assessment: Pancreatitis Elevated Transaminases Hyponatremia Hypochloremia Increased Anion Gap Metabolic Acidosis Diabetes Mellitus Hypertension Hyperlipidemia Anxiety History of drug use- UDS positive for opiate, benzo, and cocaine on 04/15/21 Plan: Pancreatitis: Lipase elevated at 105 upon admission, Amylase 20. CT Abd/Pelvis on 07/13/21 showed mild stranding of pancreas which may represent acute pancreatitis, also showed steatotic liver. Abdominal US on 07/14/21 showed the pancreas to be partially visualize with no peripancreatic fluid. This patient likely has pancreatitis due to history of alcohol and cigarette use as well as current use. Patient also had previous episodes of pancreatitis and now may be more p redisposed to episodes of pancreatitis with his alcohol and cigarette use. Also considered lisinopril as a possible cause of pancreatitis though it is an important regimen of his medication list with the history of diabetes and hypertension, and this is not as likely considering the history already discussed. We advised patient to cease smoking and alcohol use as it can give rise to episodes of acute pancreatitis. We will provide supportive care for the patient, he is currently on 150ml/hr lactated ringers. Will advance his diet as tolerated. Elevated Transaminases: Upon admission AST 341, ALT 193. Today, transaminases are down trending, AST [address] Abd Pelvis 07/13/21 showed a steatotic liver. Abdominal US 07/14/21 showed Hepatomegaly and hyperechogenicity related to diffuse fatty infiltration, and gallbladder was unremarkable with no dilated ducts. Elevated transaminases likely due to heavy alcohol use. Will check a hepatitis panel on this patient. Also provide supportive care. Electrolyte Abnormalities: Increased anion gap metabolic acidosis with hyponatremia and hypochloremia likely due to recent vomiting and depleted volume state. Will provide supportive care and monitor. Chronic Health: Diabetes mellitus, hypertension, hyperlipidemia. Patient normally takes 10 Units Insulin Levemir at night. Patient has been NPO since admission. We will advance his diet and start him on sliding scale insulin. Will resume Levemir when patient is eating regularly. Will also resume lisinopril and atorvastatin Anxiety: Will start Remeron History of drug use: UDS positive for opiate, benzo, and cocaine on 04/15/21. Patient reports only use of marijuana recently, no other illicit drug use reports. Will order UDS Copy Copies To 1: CINDY MANJARREZ MD, BETHANY N MD 07/14/21 1229: Home Medications Allergies Coded Allergies: No Known Drug Allergies (Unverified , 07/14/21) Physical Exam-([place]) Physical Exam General Appearance: WD/WN, no apparent distress Respiratory: lungs clear, normal breath sounds Cardiovascular: regular rate, rhythm, no murmur Gastrointestinal: normal bowel sounds, soft, tenderness Extremities: no pedal edema Neurologic/Psychiatric: alert, normal mood/affect Skin: normal color, warm/dry, tattoos/piercings Copy Copies To 1: CINDY MANJARREZ MD Supervisory-Addendum Brief Verification & Attestation Participated in pt care: history, MDM, physical Personally performed: exam, history, MDM, supervision of care Care discussed with: Medical Student Procedures: n/a I personally saw and examined patient and repeated the history and did my own exam as documented. I directed the plan of care as documented by the medical student. MARIE LIZARRAGA July 14, 2021 11:13 CINDY MANJARREZ MD July 14, 2021 12:29
[2021-07-14 11:34] VITALS: BP 147/93
[2021-07-14] MEDS ORDERED: ENOXAPARIN 40 MG/0.4 ML (LOVENOX) SYR SC NR (12:04)
[2021-07-14] MEDS: inSUlin ASPART (NovoLOG) 1 UNIT/0.01 ML (CHARGE PER UNIT) SC SCH ×3 (12:45→20:53)
[2021-07-14] MEDS ORDERED: INSU100I55 SQ (14:46)
[2021-07-14 16:00] VITALS: BP 143/95
[2021-07-14] MEDS: ALPRAZolam 0.25 MG (XANAX) TAB PO PRN (18:36)
[2021-07-14 20:00] VITALS: BP 150/97
[2021-07-14] MEDS: lisINopril 10 MG (PRINIVIL) TABLET PO SCH (20:52)
[2021-07-14] MEDS: AtorvaSTATin TABLET 10 MG TABLET PO SCH (20:53)
[2021-07-14] MEDS: MIRTAZAPINE 15 MG (REMERON) TAB PO SCH (20:53)
[2021-07-14 21:12] LABS: HEPATITIS C ANTIBODY C Non-Reactive (Non-Reactive)
[2021-07-15] VITALS: BP 138/80
[2021-07-15] MEDS: HYDROmorphone 2 MG/ML VIAL (DILAUDID) IV PRN ×2 (00:08→04:54)
[2021-07-15] MEDS: LACTATED RINGERS 1,000 ML IV SCH ×4 (03:16→20:36)
[2021-07-15 04:00] VITALS: BP 121/83
[2021-07-15] MEDS: inSUlin ASPART (NovoLOG) 1 UNIT/0.01 ML (CHARGE PER UNIT) SC SCH ×4 (05:27→20:35)
[2021-07-15 05:48] LABS: HEMOGLOBIN 14.5 g/dL (13.3-17.7)
[2021-07-15 05:49] LABS: WHITE BLOOD COUNT 10.3 10^3/uL (4.3-11.0)
[2021-07-15 06:00] LABS: ALBUMIN 3.4 GM/DL (3.2-4.5)
[2021-07-15 06:01] LABS: POTASSIUM 3.8 MMOL/L (3.6-5.0)
[2021-07-15 06:02] LABS: CALCIUM 8.6 MG/DL (8.5-10.1)
[2021-07-15 06:03] LABS: TOTAL PROTEIN 6.2 GM/DL (6.4-8.2)
[2021-07-15 06:05] LABS: BILIRUBIN,TOTAL 1.9 MG/DL (0.1-1.0)
[2021-07-15 06:07] LABS: CREATININE SERUM 0.87 MG/DL (0.60-1.30)
[2021-07-15 08:00] VITALS: BP 147/83
[2021-07-15] MEDS: PROPRANOLOL 20 MG (INDERAL) TABLET PO SCH ×2 (08:23→20:31)
[2021-07-15] MEDS: PANTOPRAZOLE 40 MG (PROTONIX) VIAL IV SCH (08:23)
--- NOTE | 2021-07-15 08:34 | Diagnostic Imaging Report ---
INDICATION: Fever. COMPARISON: 04/15/2021. FINDINGS: The lungs are clear aside from trace linear scarring or subsegmental atelectasis in the bases. There are no findings of pneumonia or edema. The heart size is normal. No failure pattern, effusion, or pneumothorax. Some old posterolateral right rib deformities inferiorly are stable and chronic. No acute chest wall pathology. IMPRESSION: Trace basilar atelectasis. The lungs are otherwise clear. Old rib deformities. No acute finding is evident. Dictated by: Dictated on workstation # [id number]
[2021-07-15] MEDS ORDERED: PANTOPRAZOLE 40 MG (PROTONIX) TAB PO SCH (09:00)
[2021-07-15 11:49] VITALS: BP 132/78
--- NOTE | 2021-07-15 11:53 | Progress Note ---
MARIE LIZARRAGA 07/15/21 1153: Subjective Subjective/Events-last exam Chief Complaint: Abdominal Pain History of Present Illness: Ernst De Santiago is a 41 year old male who presented to the ER on 07/13/21 with the chief complaint of abdominal pain. Medical history includes diabetes mellitus, hypertension, hyperlipidemia, anxiety, and previous episodes of pancreatitis. Patient had RUQ pain for the past 3 days, sharp, stabbing, and constant. Also had nausea and vomiting. Denies constipation or diarrhea. Patient had 2 previous episodes of pancreatitis. Does have history and current use of smoking, alcohol, and marijuana. Estimated 52 pack year smoker. 2 Sundays ago patient had "a lot" of alcohol. Work up showed the patient to have pancreatitis, elevated liver transaminases, and elevated anion gap metabolic acidosis. Patient was receiving Dilaudid 1mg Q2H PRN which he is using roughly every 2 hours and started on aggressive IV fluids at 150ml/hr LRs. Subjective/Events-last exam: When I visited the patient he is sitting up in his bed and states that he is sta rting to feel much better. He still has 7-8/10 pain when ambulating, but his pain is 2/10 at rest. He started a liquid diet yesterday which he is tolerating well. Had episodes of nausea and one episode of vomiting which he attributes to taking oral pain medications, not switching from NPO to liquid diet. Patient states he still has some abdominal pain mostly localized in the area right below the umbilicus. Otherwise, patient states he seems to be doing better and would like to advance his diet. Review of Systems General: No Chills, No Night Sweats, No Fatigue, No Malaise HEENT: No Head Aches Pulmonary: No Dyspnea, No Cough Cardiovascular: No: Chest Pain, Palpitations Gastrointestinal: Nausea, Vomiting, Abdominal Pain (Localized to area below umbilicus) Genitourinary: No Dysuria, No Frequency Musculoskeletal: No: shoulder pain, back pain Neurological: No: Weakness, Numbness Focused Exam Lactate Level 07/14/21 10:45: Lactic Acid Level 0.66 Objective Exam Last Set of Vital Signs Vital Signs Date Time Temp Pulse Resp B/P (MAP) Pulse Ox O2 Delivery O2 Flow Rate FiO2 07/15/21 08:10 Room Air 07/15/21 08:00 36.6 80 18 147/83 (104) 95 07/13/21 18:16 21 Capillary Refill : Less Than 3 Seconds I&O Intake and Output 07/15/21 00:00 Intake Total 1400 ml Output Total 1200 ml Balance 200 ml Intake Oral 1400 ml Output Urine Total 1200 ml # Voids 9 General: Alert, Oriented X3, Cooperative HEENT: Atraumatic, PERRLA Neck: Supple, No JVD Lungs: Clear to Auscultation, Normal Air Movement Heart: Regular Rate, Normal S1, Normal S2 Abdomen: Normal Bowel Sounds, Soft, Other (Tenderness with palpation in area below umbilicus) Extremities: No Cyanosis, Normal Pulses Skin: No Rashes, No Significant Lesion Neuro: Normal Speech Psych/Mental Status: Mental Status NL, Mood NL Results/Procedures Lab Laboratory Tests 07/14/21 15:50: Glucometer 224H 07/14/21 20:01: Glucometer 173H 07/15/21 05:26: Glucometer 179H 07/15/21 05:27: White Blood Count 10.3, Red Blood Count 4.60, Hemoglobin 14.5, Hematocrit 41, Mean Corpuscular Volume 89, Mean Corpuscular Hemoglobin 32, Mean Corpuscular Hemoglobin Concent 35, Red Cell Distribution Width 11.9, Platelet Count 94L, Mean Platelet Volume 12.0, Percent Immature Platelet Fraction 10.1H, Prothrombin Time 13.0, INR Comment 1.0, Sodium Level 133L, Potassium Level 3.8, Chloride Level 96L, Carbon Dioxide Level 25, Anion Gap 12, Blood Urea Nitrogen 5L, Creatinine 0.87, Estimat Glomerular Filtration Rate 112, BUN/Creatinine Ratio 6, Glucose Level 194H, Calcium Level 8.6, Corrected Calcium 9.1, Total Bilirubin 1.9H, Aspartate Amino Transf (AST/SGOT) 71H, Alanine Aminotransferase (ALT/SGPT) 83H, Alkaline Phosphatase 60, Total Protein 6.2L, Albumin 3.4, Lipase 864H Assessment/Plan Assessment/Plan Admission Dx Pancreatitis, Elevated Transaminases Admission Status: Inpatient Order (span 2 midnights) Reason for Inpatient Admission: Pancreatitis requiring aggressive IV fluids and pain management Acutely elevated transaminases requiring surveillance Assessment & Plan Assessment: Pancreatitis Elevated Transaminases Hyponatremia Hypochloremia Increased Anion Gap Metabolic Acidosis Hyperbilirubinemia Fever Diabetes Mellitus Hypertension Hyperlipidemia Anxiety History of drug use- UDS positive for opiate, benzo, and cocaine on 04/15/21 Plan 07/15: Pancreatitis: Lipase elevated at 105 upon admission, Amylase 20. CT Abd/Pelvis on 07/13/21 showed mild stranding of pancreas which may represent acute pancreatitis, also showed steatotic liver. Abdominal US on 07/14/21 showed the pancreas to be partially visualize with no peripancreatic fluid. This patient likely has pancreatitis due to history of alcohol and cigarette use as well as current use. Lipase elevated today at 864, this is likely due to finding the elevation of enzymes at a later time during this patient's course of pancreatitis. We will continue aggressive IV fluids with LRs at 150ml/hr. Pain is being well controlled with IV Dilaudid 1mg Q4H PRN and PO Oxycodone Q4H PRN. Patient states only 2/10 pain at rest. He is also tolerating the liquid diet very well and wishes to advance his diet. We will advance to a regular diet as tolerable and plan to discharge patient tomorrow. Elevated Transaminases: Upon admission AST 341, ALT 193. Transaminases continuing to trend down with AST 71 and ALT 83, closer to his baseline. Elevated transaminases likely due to heavy alcohol use. Hepatitis panel is negative. Continue supportive care. Hyperbilirubinemia: Serum bilirubin 1.9 today and 1.8 on 07/14. Has slightly worsened, not improved. Considering acute alcoholic hepatitis as the cause considering the patient's past history of alcohol use and recent history of binge drinking. Will order PT and INR. Continue supportive care. Fever: Patient reached a temperature of 38C in the past 24 hours. will order UA, CXR, and Blood Culture to rule out UTI or pneumonia. Electrolyte Abnormalities: Anion gap metabolic acidosis resolved. Hyponatremia resolving, Hypochloremia unchanged. Patient did have 1 reported episode of vomiting which may cause these electrolyte abnormalities that are still present. Will provide supportive care and monitor. Chronic Health: Diabetes mellitus, hypertension, hyperlipidemia. Patient normally takes 10 Units Insulin Levemir at night. Patient was switched to liquid diet yesterday and will be transitioned to regular diet as tolerated. Patient is on sliding scale insulin but has been refusing insulin Novolog sliding scale since 07/14 at 20:53. We will advance his diet. Will still plan to resume Levemir when patient is eating regularly. Lisinopril and Atorvastatin have been resumed Anxiety: Patient has been taking xanax. Patient has been refusing remeron. History of drug use: UDS positive for opiate, benzo, and cocaine on 04/15/21. Patient reports only use of marijuana recently, no other illicit drug use reports. Will order UDS MARK MANJARREZ MD 07/16/21 0743: Objective Exam General: Alert Lungs: Clear to Auscultation, Normal Air Movement Heart: Regular Rate, No Murmurs Abdomen: Normal Bowel Sounds, Soft, Other (Tenderness with palpation in area below umbilicus) Extremities: No Edema Neuro: Normal Speech Psych/Mental Status: Mood NL Supervisory-Addendum Brief Verification & Attestation Participated in pt care: history, MDM, physical Personally performed: exam, history, MDM, supervision of care Care discussed with: Medical Student Procedures: n/a I personally saw, repeated history and examined patient, see my physical exam for my findings. I directed the plan of care as documented by the medical student. MARIE LIZARRAGA July 15, 2021 11:53 MARK MANJARREZ MD July 16, 2021 07:43
[2021-07-15 16:10] VITALS: BP 138/86
[2021-07-15 19:49] VITALS: BP 168/92
[2021-07-15] MEDS: AtorvaSTATin TABLET 10 MG TABLET PO SCH (20:31)
[2021-07-15] MEDS: lisINopril 10 MG (PRINIVIL) TABLET PO SCH (20:31)
[2021-07-15] MEDS: MIRTAZAPINE 15 MG (REMERON) TAB PO SCH (20:31)
[2021-07-15] MEDS: ALPRAZolam 0.25 MG (XANAX) TAB PO PRN (20:44)
[2021-07-16] MEDS: diphenhydrAMINE 25 MG TAB (BENADRYL) PO PRN (00:44)
[2021-07-16 00:54] VITALS: BP 125/78
[2021-07-16] MEDS: LACTATED RINGERS 1,000 ML IV SCH ×2 (04:01→10:50)
[2021-07-16 04:48] VITALS: BP 115/72
[2021-07-16] MEDS: inSUlin ASPART (NovoLOG) 1 UNIT/0.01 ML (CHARGE PER UNIT) SC SCH (06:05)
[2021-07-16 06:08] LABS: BASOPHILS # (AUTO) 0.1 10^3/uL (0.0-0.1); BASOPHILS % (AUTO) 1 % (0-10); EOSINOPHILS # (AUTO) 0.2 10^3/uL (0.0-0.3); EOSINOPHILS % (AUTO) 3 % (0-10); HEMATOCRIT 39 % (40-54); HEMOGLOBIN 13.3 g/dL (13.3-17.7); LYMPHOCYTES # (AUTO) 1.9 10^3/uL (1.0-4.0); LYMPHOCYTES % (AUTO) 26 % (12-44); MEAN CORPUSCULAR HEMOGLOBIN 32 pg (25-34); MEAN CORPUSCULAR HGB CONC 34 g/dL (32-36); MEAN CORPUSCULAR VOLUME 92 fL (80-99); MEAN PLATELET VOLUME 11.8 fL (9.0-12.2); MONOCYTES # (AUTO) 0.6 10^3/uL (0.0-1.0); MONOCYTES % (AUTO) 9 % (0-12); NEUTROPHILS # (AUTO) 4.5 10^3/uL (1.8-7.8); NEUTROPHILS % (AUTO) 61 % (42-75); PLATELET COUNT 99 10^3/uL (130-400); WHITE BLOOD COUNT 7.3 10^3/uL (4.3-11.0)
[2021-07-16 06:31] LABS: ALBUMIN 3.4 GM/DL (3.2-4.5); POTASSIUM 3.5 MMOL/L (3.6-5.0)
[2021-07-16 06:33] LABS: TOTAL PROTEIN 6.4 GM/DL (6.4-8.2)
[2021-07-16 06:35] LABS: BILIRUBIN,TOTAL 1.2 MG/DL (0.1-1.0)
[2021-07-16 06:37] LABS: CREATININE SERUM 0.94 MG/DL (0.60-1.30)
[2021-07-16 07:30] VITALS: BP 120/76
[2021-07-16] MEDS: PROPRANOLOL 20 MG (INDERAL) TABLET PO SCH (08:59)
[2021-07-16] MEDS ORDERED: PANTOPRAZOLE 40 MG (PROTONIX) TAB PO SCH (09:00)
--- NOTE | 2021-07-16 12:03 | Discharge Summary ---
MARIE LIZARRAGA 07/16/21 1126: Discharge Summary Hospital Course Hospital Course Date of Admission: July 13, 2021 at 16:19 Admission Diagnosis : Family Physician/Provider: Fermin Hernandez Date of Discharge: 07/16/21 Discharge Diagnosis: Pancreatitis, Elevated Transaminases Hospital Course: Ernst De Santiago is a 41 year old male who presented to the ER on 07/13/21 with the chief complaint of abdominal pain. Medical history includes diabetes mellitus, hypertension, hyperlipidemia, anxiety, and previous episodes of pancreatitis. Patient had RUQ pain for 3 days prior which was sharp, stabbing, and constant. Also had nausea and vomiting. Denied constipation or diarrhea. Does have history and current use of smoking, alcohol, and marijuana. Estimated 52 pack year smoker. 2 Sundays ago patient had "a lot" of alcohol. Work-up showed the patient to have pancreatitis, elevated liver transaminases, and elevated anion gap metabolic acidosis. Upon admission, Lipase 105 and Amylase 20. US showed no peripancratic fluid. CT showed mild stranding which may represent acute pancreatitis, also steatotic liver. Pancreatitis was managed with aggressive IV fluids at 150ml/hr lactated ringers. Pain was controlled with alternating IV Dulaudid and PO Oxycodone which was eventually weaned down to Oxycodone. Lipase later elevated to 864, though likely due to finding the elevation of enzyme at a later time during the course of pancreatitis. Patient tolerated advacing his diet to liquid diet then later to regular diet and had a bowel movement on the day of discharge. Patient was stable upon discharge. Elevated transaminases, AST 341 and ALT 193 on admission, resolved. Elevated transaminases likely due to heavy alcohol use. Hepatitis panel was negative. GGT was elevated at 253 which is likely due to alcoholic liver disease. Increased anion gap metabolic acidosis with hyponatremia and hypochloremia likely due to recent vomiting and depleted volume state, these electrolyte abnormalities resolved. Hyperbilirubinemia was on a down trend and resolved. PT and INR were normal. Patient reached a temperature of 38C on one check during his course. CXR showed no acute findings. Urine Culture was never collected and Blood Culture did not return, though subsequent vitals were normal as well as normal WBC. Overall, the pancreatitis and elevated transaminases in this patient improved with his improvement in general appearance. This patient likely had pancreatitis due to history of alcohol and cigarette use as well as current use. With previous episodes of pancreatitis, Mr. De Santiago now may be more predisposed to episodes of pancreatitis especially with his alcohol and cigarette use. Also considered lisinopril as a possible cause of pancreatitis though it is an important regimen of his medication list with the history of diabetes and hypertension, and this is not as likely considering the history already discussed. We advised patient to cease smoking and alcohol use as it can give rise to episodes of acute pancreatitis. Patient kindly acknowledged these suggestions, also stating that he was improved and ready to be discharged. Labs and Pending Lab Test: Laboratory Tests 07/15/21 11:42: Glucometer 199H 07/15/21 16:00: Glucometer 265H 07/15/21 18:06: Glucometer 269H 07/15/21 20:05: Glucometer 300H 07/15/21 22:55: Glucometer 224H 07/16/21 05:00: White Blood Count 7.3, Red Blood Count 4.22L, Hemoglobin 13.3, Hematocrit 39L, Mean Corpuscular Volume 92, Mean Corpuscular Hemoglobin 32, Mean Corpuscular Hemoglobin Concent 34, Red Cell Distribution Width 12.0, Platelet Count 99L, Mean Platelet Volume 11.8, Immature Granulocyte % (Auto) 1, Neutrophils (%) (Auto) 61, Lymphocytes (%) (Auto) 26, Monocytes (%) (Auto) 9, Eosinophils (%) (Auto) 3, Basophils (%) (Auto) 1, Neutrophils # (Auto) 4.5, Lymphocytes # (Auto) 1.9, Monocytes # (Auto) 0.6, Eosinophils # (Auto) 0.2, Basophils # (Auto) 0.1, Immature Granulocyte # (Auto) 0.1, Percent Immature Platelet Fraction 10.1H, Sodium Level 138, Potassium Level 3.5L, Chloride Level 100, Carbon Dioxide Level 27, Anion Gap 11, Blood Urea Nitrogen 6L, Creatinine 0.94, Estimat Glomerular Filtration Rate 105, BUN/Creatinine Ratio 6, Glucose Level 161H, Calcium Level 9.0, Corrected Calcium 9.5, Total Bilirubin 1.2H, Aspartate Amino Transf (AST/SGOT) 34, Alanine Aminotransferase (ALT/SGPT) 55, Alkaline Phosphatase 57, Total Protein 6.4, Albumin 3.4 07/16/21 06:03: Glucometer 156H Home Meds Active Reported Insulin Aspart Flexpen (Insulin Aspart) 100 Unit/Ml (3 Ml) Insuln.pen Unit SQ AC SLIDING SCALE: 251-300=8 UNITS 301-350=10 UNITS 351-400=12 UNITS Propranolol HCl 10 Mg Tablet 10 Mg PO BID Remeron (Mirtazapine) 15 Mg Tablet 15 Mg PO HS Testosterone Cypionate 200 Mg/1 Ml Vial 200 Mg IM MONTHLY Lisinopril 10 Mg Tablet 10 Mg PO HS Atorvastatin Calcium 10 Mg Tablet 10 Mg PO HS Levemir Flextouch (Insulin Detemir) 100 Unit/1 Ml Insuln.pen 10 Unit SQ HS Discharge Diet: Regular Diet, Avoid Fatty Foods, Other Diet (Avoid Alcohol and Smoking Cigarettes) Activity as Tolerated: Yes Discharge Physical Examination Allergies: Coded Allergies: No Known Drug Allergies (Unverified , 07/14/21) General Appearance: No Apparent Distress, WD/WN HEENT: PERRL/EOMI Respiratory: Chest Non Tender, Lungs Clear, Normal Breath Sounds, No Accessory Muscle Use, No Respiratory Distress Cardiovascular: Regular Rate, Rhythm, No Edema, No Murmur, Normal Peripheral Pulses Gastrointestinal: Normal Bowel Sounds, Soft, Hepatomegaly, Tenderness (Mild tenderness with palpation, no reported tenderness at rest) Extremity: Normal Capillary Refill, Normal Inspection, No Calf Tenderness, No Pedal Edema Skin: Normal Color, Warm/Dry, Tattoos/Piercings Neurologic/Psychiatric: Alert, Oriented x3, Normal Mood/Affect Discharge Summary Date of Admission July 13, 2021 at 16:19 Date of Discharge July 16, 2021 at 11:03 Discharge Date: July 16, 2021 Admission Diagnosis Pancreatitis, Elevated Transaminases Discharge Diagnosis Pancreatitis, Elevated Transaminases MARK MANJARREZ MD 07/16/21 1630: Discharge Summary Hospital Course Assessment/Pt DC Instructions Follow up with primary physician within a week of discharge. Discharge Physical Examination Allergies: Coded Allergies: No Known Drug Allergies (Unverified , 07/14/21) General Appearance: No Apparent Distress, WD/WN Respiratory: Lungs Clear, Normal Breath Sounds Cardiovascular: Regular Rate, Rhythm, No Murmur Gastrointestinal: Normal Bowel Sounds, Soft, Tenderness (mild epigastric ttp) Extremity: No Pedal Edema Skin: Normal Color, Warm/Dry, Tattoos/Piercings Neurologic/Psychiatric: Alert, Normal Mood/Affect Supervisory-Addendum Brief Verification & Attestation Participated in pt care: history, MDM, physical Personally performed: exam, history, MDM, supervision of care Care discussed with: Medical Student Procedures: n/a I personally saw and examined patient and confirmed the history documented by the medical student, I performed and documented my own physical exam and I directed the plan of care as documented by the medical student. MARIE LIZARRAGA July 16, 2021 11:26 MARK MANJARREZ MD July 16, 2021 16:30
== END 2021-07-16 11:03 | disposition home or self-care (01) | DRG 439 ==
LOC: EDUNIT# 12:08 → ER 12:09 → 4TH 16:19 → UNDOADMOB 16:19 → OBSVTOIN 16:19 → INTOOBSV 16:19 → 4TH 18:14 → OBSVTOIN 07-14 14:46 → UNDODISIN 07-16 11:03
PROVIDERS: ADMIT Family Medicine; ATTEND Family Medicine
DX: K85.90 Acute pancreatitis without necrosis or infection, unspecified (principal); E87.2 Acidosis; E87.1 Hypo-osmolality and hyponatremia; E11.9 Type 2 diabetes mellitus without complications; I10 Essential (primary) hypertension; F41.9 Anxiety disorder, unspecified; F17.210 Nicotine dependence, cigarettes, uncomplicated; F12.90 Cannabis use, unspecified, uncomplicated; Z72.89 Other problems related to lifestyle; K76.0 Fatty (change of) liver, not elsewhere classified; E87.8 Other disorders of electrolyte and fluid balance, not elsewhere classified; R50.9 Fever, unspecified; Z79.4 Long term (current) use of insulin; Z79.899 Other long term (current) drug therapy; E78.00 Pure hypercholesterolemia, unspecified
CPT/HCPCS: 36415; 71046; 74176; 76705; 80053; 80074; 81000; 82010; 82150; 82947; 82977; 83605; 83690; 85025; 85027; 85610; 87040; 94760; G0378

== ENCOUNTER 2022-06-24 16:37 | Emergency (ER) | payer BC ==
[~2022-06-24] VITALS: Ht 193 cm; Wt 113.0 kg
[~2022-06-24 16:37] MED LIST changes: -INSU100I29 SQ; +INSU100I30 SQ; +INSU100I55 SQ; +MIRT-47 PO; +MIRT-96 PO; +PROP10TA8 PO
[2022-06-24] MEDS ORDERED: KETO10TA PO (16:58)
--- NOTE | 2022-06-24 16:58 | ED Upper Extremity ---
General Chief Complaint: Upper Extremity Stated Complaint: RIGHT ELBOW PAIN Nursing Triage Note: PT AMB TO TRIAGE PT CO OF R ELBOW PAIN 10/31 UPON MVT, HAS POPPED A COUPLE OF TIMES. MOST RECENT WHEN USING A CHAIN SAW. Source: patient Exam Limitations: no limitations History of Present Illness Date Seen by Provider: June 24, 2022 Time Seen by Provider: 16:45 Initial Comments 42-year-old male presents for right elbow pain. It to the lateral aspect of his right elbow. He had an injury about 3 months ago when he was turning a wrench on his lawnmower. It was gradually getting better and then 4 weeks ago he had another similar episode. 2 days ago after he fell in his yard and he was clearing it and had pain once again that was worse than the initial pain. It is worse with pronation movements. No redness or swelling. All other systems reviewed and negative except documented per HPI. Voice recognition software was used to help create this chart Allergies and Home Medications Allergies Coded Allergies: No Known Drug Allergies (Unverified , 07/14/21) Patient Home Medication List Home Medication List Reviewed: Yes Atorvastatin Calcium (Atorvastatin Calcium) 10 Mg Tablet, 10 MG PO HS, (Reported) Entered as Reported by: FANNY HAIR on 08/14/20 1240 Insulin Aspart (Insulin Aspart Flexpen) 100 Unit/Ml (3 Ml) Insuln.pen, UNIT SQ AC, (Reported) Entered as Reported by: FANNY HAIR on 07/14/21 1446 Insulin Detemir (Levemir Flextouch) 100 Unit/1 Ml Insuln.pen, 10 UNIT SQ HS, (Reported) Entered as Reported by: FANNY HAIR on 08/14/20 1240 Lisinopril (Lisinopril) 10 Mg Tablet, 10 MG PO HS, (Reported) Entered as Reported by: FANNY HAIR on 08/14/20 1240 Mirtazapine (Remeron) 15 Mg Tablet, 15 MG PO HS, (Reported) Entered as Reported by: MARK MANJARREZ on 07/13/211811 Propranolol HCl (Propranolol HCl) 10 Mg Tablet, 10 MG PO BID, (Reported) Entered as Reported by: MARK MANJARREZ on 07/13/211811 Testosterone Cypionate (Testosterone Cypionate) 200 Mg/1 Ml Vial, 200 MG IM MONTHLY, (Reported) Entered as Reported by: FANNY HAIR on 08/14/20 1240 Review of Systems Constitutional: see HPI Past Pawdhpu-Aamies-Iqumrg Hx Patient Social History Tobacco Use?: Yes Tobacco type used: Cigarettes Smoking Status: Current Everyday Smoker Substance use?: No Alcohol Use?: No Pt feels they are or have been: No Immunizations Up To Date Tetanus Booster (TDap): Unknown Influenza Vaccine Up-to-Date: No; Not Current First/Initial COVID19 Vaccinat: 04/24/20 Second COVID19 Vaccination Joe: 05/16/20 Third COVID19 Vaccination Date: 2020 Seasonal Allergies Seasonal Allergies: Yes Past Medical History Surgery/Hospitalization HX: DM, HTN, HLD, Surgeries: No Respiratory: No Cardiac: Yes High Cholesterol, Hypertension Neurological: No Genitourinary: No Gastrointestinal: Yes Pancreatitis Musculoskeletal: No Endocrine: Yes Diabetes, Insulin dep HEENT: No Cancer: No Psychosocial: Yes (POLY SUBSTANCE ABUSE) Anxiety Integumentary: No Blood Disorders: No Family Medical History Reviewed Nursing Family Hx No Pertinent Family Hx Physical Exam Vital Signs Vital Signs - First Documented 06/24/22 16:40 Temp 36.6 Pulse 104 Resp 16 B/P (MAP) 143/91 (108) Pulse Ox 96 Capillary Refill : Less Than 3 Seconds Height, Weight, BMI Height: '" Weight: lbs. oz. kg; 30.00 BMI Method: General Appearance: WD/WN, no apparent distress Shoulder: normal inspection, non-tender, no evidence of injury Elbow/Forearm: pain (Tenderness palpation lateral epicondyle right elbow. Worse with pronation. Sensory intact. No redness or swelling.) Wrist: Yes normal inspection, Yes non-tender, Yes no evidence of injury Hand: normal inspection, non-tender, no evidence of injury Progress/Results/Core Measures Results/Orders My Orders Orders - JESSICA CARLOS DO Ketorolac Injection (Toradol Injection) (06/24/22 17:00) Vital Signs/I&O 06/24/22 16:40 Temp 36.6 Pulse 104 Resp 16 B/P (MAP) 143/91 (108) Pulse Ox 96 Blood Pressure Mean: 108 Departure Communication (Admissions) Patient is hemodynamically stable. He has no evidence for infection. He has clear lateral epicondylitis on exam. No indication for imaging at this time. Neurovascular and sensory intact. He is given IM Toradol here and discharged with p.o. Toradol. Impression Primary Impression: Lateral epicondylitis of right elbow Disposition: 01 HOME, SELF-CARE Condition: Stable Departure-Patient Inst. Referrals: [facility] (PCP) Primary Care Physician BRYANT MCDONALD (Family) Primary Care Physician Patient Instructions: Lateral Epicondylitis Exercises, Elbow Tendinopathy (Tennis and Golf Elbow) Add. Discharge Instructions: Take Toradol as needed. You may add Tylenol to this. Perform the exercises shown. Try to find the neoprene sleeve that is recommended. Try to limit repetitive movements of the right arm. All discharge instructions reviewed with patient and/or family. Voiced understanding. Scripts Ketorolac Tromethamine (Ketorolac Tromethamine) 10 Mg Tablet 10 MG PO TID for Pain for 3 Days, #9 TAB Prov: JESSICA CARLOS DO 06/24/22 JESSICA CARLOS DO June 24, 2022 16:58
[2022-06-24] MEDS ORDERED: KETOROLAC 60 MG/2 ML VIAL IM ONE (17:00)
[2022-06-24 17:13] VITALS: BP 143/91
== END 2022-06-24 17:13 | disposition home or self-care (01) ==
LOC: EDUNIT# 16:37 → ER 16:40
DX: M77.11 Lateral epicondylitis, right elbow (principal); F17.210 Nicotine dependence, cigarettes, uncomplicated; E11.9 Type 2 diabetes mellitus without complications; Z79.4 Long term (current) use of insulin
CPT/HCPCS: 99284

== ENCOUNTER 2022-10-29 06:39 | Emergency (ER) | payer BC, OTHER ==
[~2022-10-29] VITALS: Ht 193 cm; Wt 108.8 kg
[~2022-10-29 06:39] MED LIST changes: -D-ME473S11 PO; +KETO10TA PO; +PROM473S15 PO
[2022-10-29] MEDS ORDERED: ALPRAZolam 0.5 MG TABLET PO STA (06:55)
[2022-10-29] MEDS ORDERED: meTOprolol INJECTION 5 MG/5 ML VIAL IV ONE ×2 (07:00→08:15)
[2022-10-29] MEDS ORDERED: ASPIRIN 81 MG CHEWABLE TABLET PO ONE (07:00)
[2022-10-29] MEDS ORDERED: meTOprolol TARTRATE (IR) 50 MG TABLET PO ONE (07:00)
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
[2022-10-29 07:06] LABS: HEMOGLOBIN 14.2 g/dL (13.3-17.7); MEAN CORPUSCULAR HEMOGLOBIN 32 pg (25-34); NEUTROPHILS % (AUTO) 60 % (42-75)
[2022-10-29 07:08] LABS: ALBUMIN 3.8 GM/DL (3.2-4.5)
[2022-10-29 07:09] LABS: BASOPHILS # (AUTO) 0.1 10^3/uL (0.0-0.1); BASOPHILS % (AUTO) 1 % (0-10); EOSINOPHILS # (AUTO) 0.1 10^3/uL (0.0-0.3); EOSINOPHILS % (AUTO) 1 % (0-10); HEMATOCRIT 42 % (40-54); LYMPHOCYTES % (AUTO) 30 % (12-44); MEAN CORPUSCULAR HGB CONC 34 g/dL (32-36); MEAN CORPUSCULAR VOLUME 95 fL (80-99); MEAN PLATELET VOLUME 12.6 fL (9.0-12.2); MONOCYTES # (AUTO) 0.5 10^3/uL (0.0-1.0); MONOCYTES % (AUTO) 7 % (0-12); NEUTROPHILS # (AUTO) 4.1 10^3/uL (1.8-7.8); PLATELET COUNT 112 10^3/uL (130-400); POTASSIUM 4.5 MMOL/L (3.6-5.0); WHITE BLOOD COUNT 6.8 10^3/uL (4.3-11.0)
[2022-10-29 07:10] LABS: CALCIUM 8.9 MG/DL (8.5-10.1); INR 0.8 (0.8-1.4); PROTHROMBIN TIME PATIENT 11.5 SEC (12.2-14.7)
[2022-10-29 07:11] LABS: TOTAL PROTEIN 7.2 GM/DL (6.4-8.2)
[2022-10-29 07:14] LABS: FIBRIN DEGRADATION PRODUCTS 0.63 UG/ML (0.00-0.49)
[2022-10-29 07:15] LABS: CREATININE SERUM 1.05 MG/DL (0.60-1.30)
[2022-10-29 07:18] LABS: MAGNESIUM 1.5 MG/DL (1.6-2.4)
--- NOTE | 2022-10-29 07:27 | Diagnostic Imaging Report ---
CHEST 1 VIEW, AP/PA ONLY Indication: Chest pain. Comparison: 07/15/2021 Findings: No focal airspace disease in the visualized lungs. No pleural effusion or pneumothorax. Normal cardiomediastinal silhouette. Impression: 1. No acute cardiopulmonary process by portable radiography. Dictated by: Dictated on workstation # [id number]
[2022-10-29] MEDS ORDERED: NS IV 1000 ML 1,000 ML IV ONE (08:15)
[2022-10-29] MEDS ORDERED: IOHEXOL 350 MG/ML 100 ML (OMNIPAQUE 350) VIAL IV ONE (08:30)
[2022-10-29] MEDS ORDERED: NS 100 ML (IVPB) BAG IV ONE (08:30)
[2022-10-29] MEDS ORDERED: HOLD METFORMIN - RECEIVED CONTRAST 20 ML VIAL IV SCH (08:30)
--- NOTE | 2022-10-29 09:00 | Diagnostic Imaging Report ---
INDICATION: Mid chest pain. Study is performed to evaluate for aortic dissection. TECHNIQUE: EKG gated small field of view CT angiography images of the heart were obtained. Contrast enhanced thin section helical images were obtained through the abdomen and pelvis with intravenous contrast timed for the optimal opacification of the arterial structures per CTA protocol. Post-processing, reconstructions and interpretation of angiographic images of the vessels was performed. 3D MIP reconstructions were performed and reviewed. All CT scans use one or more of the following dose optimizing techniques: automated exposure control, MA and/or KvP adjustment based on a patient size and exam type, or iterative reconstruction. The thoracic aorta is normal caliber. No dissection is identified. No pericardial or pleural fluid is identified. No pulmonary infiltrates, nodules or masses are seen. There are healed right-sided posterior lower rib fractures. There is also a partially healed left lateral 6th rib fracture. Upper abdomen is unremarkable. IMPRESSION: Unremarkable CT angiogram chest. There is no evidence of acute aortic disease. Dictated by: Dictated on workstation # [id number]
[2022-10-29] MEDS ORDERED: METO50TA15 PO (09:41)
[2022-10-29 09:49] VITALS: BP 139/101
== END 2022-10-29 09:52 | disposition home or self-care (01) ==
LOC: EDUNIT# 06:39 → ER 06:41
DX: I10 Essential (primary) hypertension (principal); R79.1 Abnormal coagulation profile; R79.89 Other specified abnormal findings of blood chemistry; E11.9 Type 2 diabetes mellitus without complications; F17.210 Nicotine dependence, cigarettes, uncomplicated; Z79.4 Long term (current) use of insulin
CPT/HCPCS: 36415; 71045; 71275; 74175; 80053; 83690; 83735; 83874; 84484; 85025; 85379; 85610; 85730; 93005; 93041

== ENCOUNTER 2022-10-30 07:22 | Emergency (ER) | payer SELFPAY ==
[~2022-10-30] VITALS: Ht 193 cm; Wt 108.8 kg
[~2022-10-30 07:22] MED LIST changes: +METO50TA15 PO
--- NOTE | 2022-10-30 07:56 | ED General ---
General Chief Complaint: Glucose Problems Stated Complaint: BLOOD SUGAR LOW Nursing Triage Note: PT TO RM 6 BY WC WITH COMPLAINT OF LOW BLOOD SUGAR. PT STATES HIS BLOOD SUGAR AT HOME GOT DOWN TO 54 AND HE ATE A BAG OF COOKIES. Source of Information: Patient Exam Limitations: No Limitations History of Present Illness Date Seen by Provider: Oct 30, 2022 Time Seen by Provider: 07:27 Initial Comments Here with report of low blood sugar this morning. He was seen yesterday by me for uncontrolled hypertension and we did start metoprolol 50 mg p.o. twice daily. He did take that and he was concerned that this medication may be causing his low blood sugar. He is also starting on hydroxyzine for anxiety. He did eat okay last night and did have a couple beers but did not drink a lot. He has done his normal dosing of insulin and Levemir. They have recently increased his Levemir to 20 units at nighttime versus 18. Denies fever or chil ls. Denies nausea or vomiting. He did eat a couple cookies and now his blood sugar is in the 100s range and he is feeling better. He does have the reyna glucose monitoring system and it did notify him of the low blood sugar and alarmed appropriately. Timing/Duration: 1 Hour Severity: Moderate Modifying Factors: improves with Eating Associated Systoms: No Nausea/Vomiting; Weakness (Earlier but resolved now) Allergies and Home Medications Allergies Coded Allergies: No Known Drug Allergies (Unverified , 07/14/21) Patient Home Medication List Home Medication List Reviewed: Yes Atorvastatin Calcium (Atorvastatin Calcium) 10 Mg Tablet, 10 MG PO HS, (Reported) Entered as Reported by: FANNY HAIR on 08/14/20 1240 Insulin Aspart (Insulin Aspart Flexpen) 100 Unit/Ml (3 Ml) Insuln.pen, UNIT SQ AC, (Reported) Entered as Reported by: FANNY HAIR on 07/14/21 1446 Insulin Detemir (Levemir Flextouch) 100 Unit/1 Ml Insuln.pen, 10 UNIT SQ HS, (Reported) Entered as Reported by: FANNY HAIR on 08/14/20 1240 Ketorolac Tromethamine (Ketorolac Tromethamine) 10 Mg Tablet, 10 MG PO TID Prescribed by: JESSICA CARLOS MD on 06/24/22 1658 Lisinopril (Lisinopril) 10 Mg Tablet, 10 MG PO HS, (Reported) Entered as Reported by: FANNY HAIR on 08/14/20 1240 Metoprolol Tartrate (Metoprolol Tartrate) 50 Mg Tablet, 50 MG PO BID Prescribed by: AMRIT MCGARRY on 10/29/22 0941 Mirtazapine (Remeron) 15 Mg Tablet, 15 MG PO HS, (Reported) Entered as Reported by: MARK MANJARREZ on 07/13/21 181 Propranolol HCl (Propranolol HCl) 10 Mg Tablet, 10 MG PO BID, (Reported) Entered as Reported by: MARK MANJARREZ on 07/13/211811 Testosterone Cypionate (Testosterone Cypionate) 200 Mg/1 Ml Vial, 200 MG IM MONTHLY, (Reported) Entered as Reported by: FANNY HAIR on 08/14/20 124 Review of Systems Review of Systems Constitutional: see HPI; No chills, No fever Respiratory: no symptoms reported Cardiovascular: no symptoms reported Gastrointestinal: no symptoms reported Psychiatric/Neurological: Weakness Past Wccoysv-Jqsfmg-Vccdme Hx Patient Social History Tobacco Use?: Yes Tobacco type used: Cigarettes Smoking Status: Current Everyday Smoker Substance use?: Yes Alcohol Use?: Yes Pt feels they are or have been: No Immunizations Up To Date Tetanus Booster (TDap): Unknown First/Initial COVID19 Vaccinat: 04/24/20 Second COVID19 Vaccination Joe: 05/16/20 Third COVID19 Vaccination Date: 2020 Seasonal Allergies Seasonal Allergies: Yes Past Medical History Surgery/Hospitalization HX: DM, HTN, HLD, POST CONCUSSION SYNDROME Surgeries: No Respiratory: No Cardiac: Yes High Cholesterol, Hypertension Neurological: No Genitourinary: No Gastrointestinal: Yes Pancreatitis Musculoskeletal: No Endocrine: Yes Diabetes, Insulin dep HEENT: No Cancer: No Psychosocial: Yes (POLY SUBSTANCE ABUSE) Anxiety Integumentary: No Blood Disorders: No Family Medical History Reviewed Nursing Family Hx No Pertinent Family Hx Physical Exam Vital Signs Vital Signs - First Documented 10/30/22 07:26 Pulse 90 Resp 16 B/P (MAP) 139/102 (114) Pulse Ox 98 O2 Delivery Room Air Capillary Refill : Less Than 3 Seconds Height, Weight, BMI Height: '" Weight: lbs. oz. kg; 29.00 BMI Method: General Appearance: No Apparent Distress, WD/WN Respiratory: Lungs Clear, Normal Breath Sounds Cardiovascular: Regular Rate, Rhythm, No Murmur Neurologic/Psychiatric: Alert, Oriented x3 Progress/Results/Core Measures Suspected Sepsis SIRS Temperature: Pulse: 90 Respiratory Rate: 16 Blood Pressure 139 /102 Mean: 114 Results/Orders Lab Results Laboratory Tests Test 10/30/22 07:34 Range/Units Glucometer 123 H 70-110 MG/DL My Orders Orders - AMRIT MCGARRY MD Accucheck Stat ONCE (10/30/22 07:35) Vital Signs/I&O 10/30/22 07:26 Pulse 90 Resp 16 B/P (MAP) 139/102 (114) Pulse Ox 98 O2 Delivery Room Air Capillary Refill : Less Than 3 Seconds Blood Pressure Mean: 114 Progress Note : Progress Note Seen and evaluated. We did discuss his medication regimen. His blood sugar has returned to normal and he is feeling better. He does have constant monitoring of his blood sugar and has appropriate sliding scale and long-acting dosing. We will decrease his long-acting dosing from 20 units nightly to 18 units nightly. He does have appointment with his doctor on Tuesday. Blood pressure is much improved from yesterday and currently in the 130s to 140s over 90s. We did discuss options for evaluation but at this point, he is doing better and this is likely just hypoglycemic reaction and may be from reduce stress causing decrease insulin requirement. We did discuss the adjustments and he will do that and he will follow-up with the doctor on Tuesday. Discharged home with return precautions. Patient verbalized understanding of instructions and agreement with plan. Departure Impression Primary Impression: Hypoglycemia associated with diabetes Disposition: 01 HOME, SELF-CARE Condition: Improved Departure-Patient Inst. Decision time for Depature: 07:55 Referrals: [facility] (PCP/Family) Primary Care Physician Patient Instructions: Low Blood Sugar, Adult ED Add. Discharge Instructions: All discharge instructions reviewed with patient and/or family. Voiced understanding. Continue medicines as previously prescribed but decrease Levemir to 18 units at nighttime. You may also decrease your sliding scale insulin by 10% and monitor for appropriate glucose levels. Discuss your new blood pressure medicine and the insulin adjustments with your doctor on Tuesday at the appointment. Return for worse pain, fever, vomiting, weakness, breathing problems or other concerns as needed. You should eat some sort of complex carbohydrate before going to bed and certainly do that this morning before resting again today. AMRIT MCGARRY MD Oct 30, 2022 07:56
[2022-10-30 08:05] VITALS: BP 129/96
== END 2022-10-30 08:05 | disposition home or self-care (01) ==
LOC: EDUNIT# 07:22 → ER 07:24
DX: E11.649 Type 2 diabetes mellitus with hypoglycemia without coma (principal); I10 Essential (primary) hypertension; F41.9 Anxiety disorder, unspecified; F17.210 Nicotine dependence, cigarettes, uncomplicated; Z79.4 Long term (current) use of insulin; Z79.899 Other long term (current) drug therapy
CPT/HCPCS: 82947